=== PATIENT | female | born 1985 | race Caucasian/White ===

== ENCOUNTER 2020-06-05 20:11 | Outpatient (REF) | payer MEDICAID, SELFPAY ==
[2020-06-07 14:02] LABS: COVID-19 RT-PCR UVMMC Result Negative (Negative)
== END 2020-06-05 20:12 | disposition home or self-care (01) ==
LOC: NCHCN 20:11
PROVIDERS: PCP Nurse Practitioner Family; Visit Provider Nurse Practitioner Family
DX: Z20.822 Contact with and (suspected) exposure to COVID-19 (principal)
CPT/HCPCS: U0003

== ENCOUNTER 2020-06-27 09:20 | Outpatient (REF) | payer MEDICAID, SELFPAY ==
[2020-06-27 13:13] LABS: HCT 40.3 % (36.0-46.0); HGB 13.6 g/dL (11.2-15.7); MCH 29.6 pg (27.0-33.0); MCHC 33.7 % (32.0-36.0); MCV 87.8 fL (80-95); MPV 9.7 fL (8.0-11.0); Platelet Count 286 10^3/uL (130-400); RBC 4.59 10^6/uL (3.93-5.22); RDW 12.5 % (11.7-14.6); RDW-SD 40.3 fL; WBC 7.13 10^3/uL (4.4-10.8)
[2020-06-27 14:07] LABS: Anion Gap 7.9 mmol/L (3-11); BUN 10 mg/dL (7-18); CO2 25.1 mmol/L (21.0-32.0); CREATININE 0.6 mg/dL (0.55-1.02); Calcium 8.6 mg/dL (8.5-10.1); Chloride 108 mmol/L (98-107); Glucose 85 mg/dL (74-106); Potassium 4.1 mmol/L (3.5-5.1); Sodium 141 mmol/L (136-145); TSH (W/Ref FT4) 1.97 uIU/mL (0.36-3.74)
[2020-06-28 04:47] LABS: Vitamin D 25 Total 22.8 ng/ml (30-100)
== END 2020-06-27 09:21 | disposition home or self-care (01) ==
LOC: NCHCN 09:20
PROVIDERS: PCP Nurse Practitioner Family; Visit Provider Nurse Practitioner Family
DX: R51.9 Headache, unspecified (principal); E55.9 Vitamin D deficiency, unspecified
CPT/HCPCS: 80048; 82306; 85027; 84443

== ENCOUNTER 2020-08-31 16:53 | Outpatient (REF) | payer MEDICAID, SELFPAY | END 2020-08-31 16:54 | disposition home or self-care (01) | LOC: NCHCN 16:53 | PROVIDERS: PCP Nurse Practitioner Family; Visit Provider Family Medicine | DX: N76.0 Acute vaginitis (principal) | CPT/HCPCS: 87480; 87510; 87660 ==

== ENCOUNTER 2021-01-29 09:34 | Outpatient (REF) | payer MEDICAID, SELFPAY ==
[2021-01-29 15:21] LABS: Bilirubin Negative (Negative); Blood Negative (Negative); Clarity Cloudy (Clear); Glucose Negative (Negative); Ketones Negative (Negative); Leukocyte Esterase Negative (Negative); Nitrite Positive (Negative); Urobilinogen 0.2 EU/dL (Up TO 0.2); pH 8.5 (5-8)
[2021-01-29 15:40] LABS: Bacteria Many HPF (Negative); C & S Indicated? Yes; Casts Negative LPF (Negative); Crystals Moderate Amorphous HPF (Negative); Epithelial Cells Few HPF (Negative); Mucus Negative (Negative); RBC Negative HPF (0-2)
== END 2021-01-29 09:35 | disposition home or self-care (01) ==
LOC: LBN 09:34
PROVIDERS: PCP Nurse Practitioner Family; Visit Provider Nurse Practitioner Family
DX: R35.0 Frequency of micturition (principal); R82.998 Other abnormal findings in urine; R53.83 Other fatigue
CPT/HCPCS: 87077; 81003; 81015; 87086; 87186

== ENCOUNTER 2021-02-18 19:27 | Outpatient (REF) | payer MEDICAID, SELFPAY ==
[2021-02-18 21:54] LABS: Bilirubin Negative (Negative); Blood Negative (Negative); Clarity Clear (Clear); Glucose Negative (Negative); Ketones Negative (Negative); Leukocyte Esterase Negative (Negative); Nitrite Negative (Negative); Specific Gravity 1.015 (1.005-1.025); Urobilinogen 0.2 EU/dL (Up TO 0.2); pH 6.5 (5-8)
[2021-02-20 11:59] LABS: HIV-1/2 Ag & Ab Screen Negative (Negative)
[2021-02-20 14:20] LABS: Syphilis Serology (RPR) Negative (Negative)
[2021-02-20 14:45] LABS: Chlamydia Result Negative (Negative); GC Result Negative (Negative)
== END 2021-02-18 19:28 | disposition home or self-care (01) ==
LOC: LBN 19:27
PROVIDERS: PCP Nurse Practitioner Family; Visit Provider Nurse Practitioner Family
DX: N39.0 Urinary tract infection, site not specified (principal); R30.0 Dysuria; A64 Unspecified sexually transmitted disease; Z11.4 Encounter for screening for human immunodeficiency virus [HIV]; Z11.3 Encounter for screening for infections with a predominantly sexual mode of transmission
CPT/HCPCS: 87389; 87491; 87591; 81003; 86592; 87480; 87510; 87660

== ENCOUNTER 2021-09-06 16:18 | Outpatient (CLI) | payer MEDICAID, SELFPAY ==
[2021-09-06 17:10] LABS: HCG Quant, Pregnancy 648 mIU/mL (1-3)
== END 2021-09-06 16:19 | disposition home or self-care (01) ==
LOC: LBO 16:19
PROVIDERS: PCP Nurse Practitioner Family; Visit Provider Advanced Practice Midwife
DX: O03.9 Complete or unspecified spontaneous abortion without complication (principal)
CPT/HCPCS: 36415; 84702

== ENCOUNTER 2021-09-07 14:26 | Emergency (ER) | payer MEDICAID, SELFPAY ==
[2021-09-07 14:38] VITALS: BP 126/76; PULSE 94; RESP 16; TEMP 37; O2SAT 99
--- NOTE | 2021-09-07 14:45 | DI.US_ITS ---
Exam(s) US PELVIS TRANSVAGINAL EXAM: US PELVIS TRANSVAGINAL CLINICAL HISTORY: , lower cramping pain TECHNIQUE: Ultrasound performed using standard protocol. COMPARISON: US S.T. HEAD/NECK from 01/31/2019 FINDINGS: Pelvic ultrasound was performed transabdominally and transvaginally. Uterus measures 6.2 x 4.7 x 5.9 cm. Endometrial stripe is about 5 millimeters in thickness and appears homogeneous. There is no in trauterine gestation. The ovaries are unremarkable in appearance with right ovary measuring 29 x 16 x 15 millimeters and le ft ovary measured 30 x 15 x 24 millimeters. There is a likely involuting cyst of the left ovary. Th ere is a small quantity of free fluid adjacent to the right ovary. Limited scanning of the kidneys is unremarkable. IMPRESSION: Small to moderate free fluid in the pelvis, nonspecific. No intrauterine gestation identified. No o ther specific findings. DATA REPOSITORY:
--- NOTE | 2021-09-07 14:51 | W.ED.GENAD ---
Discharge Plan Disposition Patient Disposition: HOME Condition: Stable Discharge Details Clinical Impression: Ectopic Primary Care Provider: Myriam Barker ED Provider: Johnson Orozco Home Meds and New Rx's Prescriptions: Continued cyclobenzaprine 10 mg tablet 10 mg PO HS PRN (Reason: muscle spasm) Qty: 10 0RF topiramate [Topamax] 100 mg tablet 100 mg PO QHS Qty: 30 3RF lamotrigine 100 mg tablet 100 mg PO DAILY 0RF acetylcysteine 600 mg capsule See Rx Instructions .ROUTE .COMPLEX 0RF Label Comments: TAKE 2 CAPSULES BY MOUTH IN THE MORNING AND ADDITIONAL 2 CAPSULES IN THE AFTERNOON OR EVENING NEEDED FOR ANXIETY Rx Instructions: TAKE 2 CAPSULES BY MOUTH IN THE MORNING AND ADDITIONAL 2 CAPSULES IN THE AFTERNOON OR EVENING NEEDED FOR ANXIETY Discharge Instructions Instructions: Methotrexate (By injection) Additional Instructions: We have initiated the use of methotrexate today which will be considered day 1. I discussed your case with the history instructor, Dr Garcia, and you will be seen in women's health clinic on Thursday which is day 4. Please call the office at [phone] for an appointment time. A formal referral to women's health was placed on your behalf today. Home to rest. Return to the emergency department for any acute concerns Medical Decision Making 35-year-old female , LMP approx 6 wks ago, [facility] by [facility]. She has had cramping and bleeding for 1 week with a beta-hCG on September 02 of 460, that lara to a beta-hCG of 648 on September 06. She was reported to have no visible intrauterine on ultrasound and therefore referred for question of ectopic . The patient states she has been having intermittent lower abdominal cramping pain and bleeding that at times has required 1-2 pads per hour. She believes she passed some tissue this previous Thursday. The patient arrives to the ER stable and normal and normotensive. Screening labs obtained and patient referred for transvaginal ultrasound. No evidence of intrauterine or tubal . See the formal report. Patient's laboratories noted a white count of 9, hematocrit 40, platelets 306, reassuring chemistries. Beta hCG today is 703. LFTs are unremarkable Case discussed with carbon sequestration plant manager BLUEPRINTING MACHINE OPERATOR, Dr Garcia. She recommends 50 mg per metered squared dose of methotrexate with follow-up in clinic this week on Thursday. Patient consented for use of methotrexate 50 mg per metered squared. The risks and benefits were discussed including adverse reactions such as gastritis and enteritis. The patient is 5 foot 4 inches and weighs 64 kg, approximately 1.6 m?. Patient will follow up in Thursday, day 4 in clinic. She is stable and appropriate for outpatient management. HPI General Mode of arrival: ambulatory. Date/Time Provider Initiated Documentation: 09/07/21 14:44. Limitations to Documentation: no limitations. Information obtained by: patient. History of Present Illness 35 year old F presents to the emergency department with the chief complaint of Crampy lower abdominal pain, positive preg, described as moderate, and is localized to the abdomen. Patient reports no radiation. Patient started experiencing this hour(s) and it has been intermittent. improves with No relieving factors improve symptom(s), No exacerbating factors reported . Patient did receive the following treatments prior to arrival, none Related Data Home Medications Medication Instructions Recorded Confirmed cyclobenzaprine 10 mg tablet 10 mg PO HS PRN #10 tab 11/27/20 09/07/21 topiramate 100 mg tablet (Topamax) 100 mg PO QHS #30 tab 12/18/20 01/29/21 acetylcysteine 600 mg capsule See Rx Instructions .ROUTE .COMPLEX 09/07/21 lamotrigine 100 mg tablet 100 mg PO DAILY 09/07/21 09/07/21 Previous Rx's Medication Instructions Recorded cyclobenzaprine 10 mg tablet 10 mg PO HS PRN #10 tab 11/27/20 topiramate 100 mg tablet (Topamax) 100 mg PO QHS #30 tab 12/18/20 Allergies Allergy/AdvReac Type Severity Reaction Status Date / Time escitalopram [From Lexapro] Allergy Verified 09/07/21 15:42 General Stated Complaint: BLUEPRINTING MACHINE OPERATOR ANGEL: 2 Review of Systems Narrative: Report of elevated hCG, cramping and bleeding for 1 week, otherwise well without acute complaint. 6 systems reviewed and otherwise negative PFSH All Active Problems (Updated 09/07/21 @ 17:01 by Johnson Orozco MD) Ectopic (Acute) Migraine headache without aura (Acute) Intractable migraine with aura without status migrainosus (Acute) Daily headache (Acute) Medical History ADHD Anxiety state Chronic daily headache History of depression Social History Smoking/Tobacco Use Status: Never Smoking risk assessment performed?: Yes Alcohol Intake: current Alcohol Intake frequency: holidays/special occasions only Alcohol type: wine Drug use: Never Substance use type: does not use Household members: children Housing: house Number of Children: 3 Pets and animals: Yes Pets and animals: dog(s) What type of physical activity do you participate in: walking Seatbelt use: always Do you feel safe at home: Yes Do you feel safe in your relationship?: Yes Exam Narrative Exam Narrative: GEN: awake, alert, oriented 3. Pleasant, well groomed, interactive. HEAD: Normocephalic, atraumatic ENT: Mucous membranes moist, oropharynx unremarkable, External ear exam unremarkable EYES: PERRL, EOMI NECK: Full ROM, no BRANDON, no menigismus CHEST/RESP: Nontender, clear to auscultation bilateral, no wheeze/rhonchi/rales CARDIOVASCULAR: RRR, no murmur, rub pedro. 2+ Rad pulse bilateral ABDOMEN: Soft, nontender, no mass. +Bowel sounds EXT: Full ROM, no edema, no rash Neuro: Grossly normal neurologic exam, conversant, interactive. Psych: Speech fluent, thoughts congruent, affect normal Course Vital Signs Vital signs: Vital Signs Temperature 37.0 C 09/07/21 14:38 Pulse 94 H 09/07/21 14:38 Respiratory Rate 16 09/07/21 14:38 Blood Pressure 126/76 09/07/21 14:38 Pulse Oximetry 99 09/07/21 14:38 Temperature 37.0 C 09/07/21 14:38 Temperature Source Temporal Artery Scan 09/07/21 14:38 Pulse 94 H 09/07/21 14:38 Respiratory Rate 16 09/07/21 14:38 Blood Pressure 126/76 09/07/21 14:38 Blood Pressure Position Sitting 09/07/21 14:38 Pulse Oximetry 99 09/07/21 14:38 Oxygen Delivery Method Room Air 09/07/21 14:38 Oxygen Flow Rate 0 09/07/21 14:38 Pain Level 5 09/07/21 14:38 Comment 09/07/21 14:38 Lab/Test Results Lab/Test Results: POC- Test(urine) Positive
[2021-09-07 15:26] LABS: Abs Immature Grans 0.03 10^3/uL (0.0-0.06); Absolute Basophil Count 0.04 10^3/uL (0.0-0.2); Absolute Eosinophil Count 0.08 10^3/uL (0.0-0.7); Absolute Lymphocyte Count 2.67 10^3/uL (1.2-3.4); Absolute Monocyte Count 0.56 10^3/uL (0.1-0.8); Absolute Neutrophil Count 5.74 10^3/uL (1.2-6.7); Basophils % 0.4; Eosinophils % 0.9; HCT 40.3 % (36.0-46.0); HGB 13.6 g/dL (11.2-15.7); Immature Grans % 0.3; Lymphocytes % 29.3; MCH 29.5 pg (27.0-33.0); MCHC 33.7 % (32.0-36.0); MCV 87 fL (80-95); MPV 9.3 fL (8.0-11.0); Monocytes % 6.1; Platelet Count 306 10^3/uL (130-400); RBC 4.61 10^6/uL (3.93-5.22); RDW 12.9 % (11.7-14.6); WBC 9.12 10^3/uL (4.4-10.8)
[2021-09-07 15:34] LABS: Anion Gap 9.8 mmol/L (3-11); BUN 11 mg/dL (7-18); CO2 24.2 mmol/L (21.0-32.0); CREATININE 0.6 mg/dL (0.55-1.02); Calcium 8.7 mg/dL (8.5-10.1); Chloride 108 mmol/L (98-107); Glucose 93 mg/dL (74-106); Potassium 3.7 mmol/L (3.5-5.1); Sodium 142 mmol/L (136-145)
[2021-09-07 15:55] LABS: HCG Quant, Pregnancy 703 mIU/mL (1-3)
--- NOTE | 2021-09-07 16:14 | DI.VRAD_ITS ---
PROCEDURE INFORMATION: Preliminary report Exam: US Pelvis Complete, Transabdominal and US Pelvis, Transvaginal Exam date and time: 09/07/2021 3:01 PM Age: 35 years old Clinical indication: Pelvic pain; Patient HX: Rising hcg levels. Patient has been having intermittent severe cramping and bleeding for the past couple of weeks. [facility] no sonographic evidence of an iup. Pt's hcg level on 09/02 = 460, hcg level on 09/07 = 648. Concern for ectopic TECHNIQUE: Imaging protocol: Real-time transabdominal and transvaginal pelvic ultrasound (complete) with image documentation. Transvaginal imaging was used for better evaluation of the endometrium, adnexa, and/or cervix. COMPARISON: No relevant prior studies available. FINDINGS: Uterus: Uterus measures 6.2 x 4.7 x 5.9 cm. Endometrium measures 5 mm in diameter. No intrauterine . Cervix: Subcentimeter nabothian cyst. Right ovary/adnexa: Right ovary measures 2.9 x 1.6 by 1.4 cm. Subcentimeter follicles. Right ovarian blood flow demonstrated. Left ovary/adnexa: Left ovary measures 3.0 x 1.5 by 2.4 cm. Left ovarian blood flow demonstrated. Poorly defined 1.4 cm complex cystic structure in the left ovary. Intraperitoneal space: Moderate quantity of complex free fluid . Urinary bladder: Nondistended bladder. Other findings: Normal bilateral renal morphology. No hydronephrosis. IMPRESSION: 1. Moderate quantity of complex free fluid . 2. Poorly defined 1.4 cm complex cystic structure in the left ovary. 3. No intrauterine . Dictated and Authenticated by: Zion Agrawal MD. Ordering:MICHAEL Ornelas MD
[2021-09-07 16:29] LABS: ALT 16 U/L (14-59); AST 10 U/L (15-37); Albumin 3.9 g/dL (3.4-5.0); Alkaline Phosphatase 59 U/L (46-116); Bilirubin, Direct 0.1 mg/dL (0.0-0.2); Bilirubin, Total 0.2 mg/dL (0.2-1.0); Total Protein 7.3 g/dL (6.4-8.2)
--- NOTE | 2021-09-07 17:47 | NUR.NOTE ---
Dr. Orozco has requested a consultation with OB MD re: Tubal , Methotrexate tx Request has been faxed. [facility]
[2021-09-07 18:57] VITALS: BP 124/70; PULSE 86; RESP 16; TEMP 36.9; O2SAT 98
== END 2021-09-07 18:56 | disposition home or self-care (01) ==
PROVIDERS: Emergency Provider Emergency Medicine; PCP Nurse Practitioner Family
DX: O00.80 Other ectopic pregnancy without intrauterine pregnancy (principal)
CPT/HCPCS: 80048; 80076; 86900; 86901; 76830; 76856; 84702; 85025; J9250

== ENCOUNTER 2021-09-10 02:02 | Outpatient (CLI) | payer MEDICAID, SELFPAY ==
[2021-09-10 17:19] LABS: HCG Quant, Pregnancy 707 mIU/mL (1-3)
== END 2021-09-10 02:03 | disposition home or self-care (01) ==
LOC: LBO 02:03
PROVIDERS: PCP Nurse Practitioner Family; Visit Provider Obstetrics & Gynecology
DX: O26.851 Spotting complicating pregnancy, first trimester (principal); Z3A.01 Less than 8 weeks gestation of pregnancy
CPT/HCPCS: 84702

== ENCOUNTER 2021-09-12 14:35 | Emergency (ER) | payer MEDICAID, SELFPAY ==
--- NOTE | 2021-09-12 14:36 | W.ED.GENAD ---
Discharge Plan Disposition Patient Disposition: HOME Condition: Improving Discharge Details Clinical Impression: Incomplete miscarriage Primary Care Provider: Myriam Barker ED Provider: Noemi Martinez Home Meds and New Rx's Prescriptions: Continued topiramate [Topamax] 100 mg tablet 100 mg PO QHS Qty: 30 3RF oxycodone-acetaminophen [Endocet] 5-325 mg tablet 1 tab PO Q6H MDD 4 PRN (Reason: pain) Qty: 10 0RF lamotrigine 100 mg tablet 100 mg PO DAILY No Action methotrexate sodium 25 mg/mL solution See Rx Instructions IM ONCE Qty: 3.36 0RF Rx Instructions: 50 mg per metered square = 84mg intramuscularly once; Discharge Instructions Instructions: Miscarriage (ED) Additional Instructions: Drink plenty of fluids and get plenty of rest. Alternate tylenol and motrin as needed and directed for pain. Take the oxycodone for pain not relieved with Tylenol or Motrin. [facility]-up with [facility] tomorrow for ultrasound and further evaluation. Return immediately to the emergency department if you develop any worsening or new concerning symptoms. [place] [facility] [place] Cathleen Guthrie MD [ [facility] STAFF PHYSICIAN] - Discharge Data Discharge Date/Time-TO BE ENTERED AT DEPARTURE: 09/12/21 18:41 Discharge Physician: Noemi Martinez Medical Decision Making [id number] -- 35-year-old female seen in the ED on 09/07 and diagnosed with possible ectopic with no IUP identified on ultrasound with initiated methotrexate treatment on 09/07 with follow-up with [facility] on 09/09 with plan to continue to monitor hCGs presents for abdominal pain and vaginal bleeding presents today with persistent abdominal pain and episode of dizziness followed by bilateral hand paresthesias. Vitals within normal limits. Patient appears uncomfortable but not. Her abdomen is soft but diffusely tender. Case discussed with Dr. Guthrie who will evaluate patient in the emergency department. Dr. Guthrie evaluated patient at bedside. Agrees with plan for CBC, hCG and pain control. We will place an IV, bolus IV fluids and give IV Tylenol. Plan will be for repeat ultrasound and follow-up with [facility] tomorrow. Unable to obtain IV and patient refusing any further attempts. We will give oral fluids and oral Tylenol. Dr. Guthrie is agreeable with oral oxycodone. 1814 --labs reviewed. Normal white blood cell count. Normal hemoglobin. Normal electrolytes. Beta quant slightly downtrending from 707 on 09/10 to 703 pn 09/12. Patient reassessed and she feels much better and feels good to go home. She was given oxycodone to go. She will follow-up with [facility] tomorrow for ultrasound and further evaluation. Usual and customary return precautions given prior to discharge. Medical Records Medical records reviewed: Yes I reviewed the patient's medical records. Medical records narrative: US PELVIS ? TRANSVAGINAL CLINICAL HISTORY:? , lower cramping pain TECHNIQUE:? Ultrasound? performed using standard protocol. COMPARISON:? US S.T. HEAD/NECK from 01/31/2019 FINDINGS: Pelvic ultrasound was performed transabdominally and transvaginally.? Uterus measures 6.2 x 4.7 x 5.9 cm.? Endometrial stripe is about 5 millimeters in thickness and appears homogeneous.? There is no intrauterine gestation. The ovaries are unremarkable in appearance with right ovary measuring 29 x 16 x 15 millimeters and left ovary measured 30 x 15 x 24 millimeters.? There is a likely involuting cyst of the left ovary.? There is a small quantity of free fluid adjacent to the right ovary. Limited scanning of the kidneys is unremarkable. IMPRESSION: Small to moderate free fluid in the pelvis, nonspecific.? No intrauterine gestation identified.? No other specific findings. Lab Data Lab results reviewed: Yes I reviewed the patient's lab results. Labs: Laboratory Tests Range/Units 09/12/21 09/12/21 09/12/21 16:38 16:38 17:20 WBC Cancelled RBC Cancelled Hgb Cancelled Hct Cancelled MCV Cancelled MCH Cancelled MCHC Cancelled RDW Cancelled Plt Count Cancelled MPV Cancelled Immature Gran % Cancelled Neutrophils % Cancelled Band Neutrophils % Cancelled Lymphocytes % Cancelled Atypical Lymphs % Cancelled Monocytes % Cancelled Eosinophils % Cancelled Basophils % Cancelled Metamyelocytes % Cancelled Myelocytes % Cancelled Promyelocytes % Cancelled Other Cells % Cancelled Nucleated RBC % Cancelled Absolute Neutrophils Cancelled Absolute Lymphocytes Cancelled Absolute Monocytes Cancelled Absolute Eosinophils Cancelled Absolute Basophils Cancelled RBC Morphology Cancelled Polychromasia Cancelled Hypochromasia Cancelled Poikilocytosis Cancelled Basophilic Stippling Cancelled Anisocytosis Cancelled Microcytosis Cancelled Macrocytosis Cancelled Spherocytes Cancelled Tear Drop Cells Cancelled Ovalocytes Cancelled Stomatocytes Cancelled [place] Bodies Cancelled [place] Cells/Echinocytes Cancelled Acanthocytes (Spur) Cancelled Schistocytes Cancelled Sodium Cancelled 141 Potassium Cancelled 3.7 Chloride Cancelled 107 Carbon Dioxide Cancelled 22.1 Anion Gap Cancelled 11.9 H BUN Cancelled 12 Creatinine Cancelled 0.6 Estimated GFR/1.73 m2 Cancelled >= 60.00 Glucose Cancelled 89 Calcium Cancelled 8.4 L Total Bilirubin Cancelled 0.3 AST Cancelled 9 L ALT Cancelled 15 Alkaline Phosphatase Cancelled 52 Total Protein Cancelled 6.7 Albumin Cancelled 3.9 Beta HCG, Quant Cancelled 703 H Range/Units 09/12/21 17:20 WBC 9.40 RBC 4.16 Hgb 12.5 Hct 36.7 MCV 88 MCH 30.0 MCHC 34.1 RDW 12.3 Plt Count 270 MPV 8.9 Immature Gran % 0.3 Neutrophils % 58.4 Band Neutrophils % Lymphocytes % 34.8 Atypical Lymphs % Monocytes % 5.3 Eosinophils % 0.7 Basophils % 0.5 Metamyelocytes % Myelocytes % Promyelocytes % Other Cells % Nucleated RBC % 0.0 Absolute Neutrophils 5.48 Absolute Lymphocytes 3.27 Absolute Monocytes 0.50 Absolute Eosinophils 0.07 Absolute Basophils 0.05 RBC Morphology Polychromasia Hypochromasia Poikilocytosis Basophilic Stippling Anisocytosis Microcytosis Macrocytosis Spherocytes Tear Drop Cells Ovalocytes Stomatocytes [place] Bodies [place] Cells/Echinocytes Acanthocytes (Spur) Schistocytes Sodium Potassium Chloride Carbon Dioxide Anion Gap BUN Creatinine Estimated GFR/1.73 m2 Glucose Calcium Total Bilirubin AST ALT Alkaline Phosphatase Total Protein Albumin Beta HCG, Quant HPI General Mode of arrival: ambulatory. Date/Time Provider Initiated Documentation: 09/12/21 14:36. Limitations to Documentation: no limitations. Information obtained by: patient. HPI Narrative: Patient is a 34-year-old female with a history of G4, P3 with a history of endometriosis, laparoscopy and presents for persistent abdominal pain after taking methotrexate on Thursday for a recent . Patient was seen here 5 days ago for abdominal pain and vaginal bleeding and found to have no IUP on ultrasound and was given methotrexate for concern for ectopic as she had rising hCG and was advised to follow-up with [facility] for repeat hCG. She presents for worsening pain over the past few days. She states that she has been on oral contraceptive and took a morning-after pill 6 weeks ago. She had heavy vaginal bleeding up until a few days ago and has had some spotting today. She states her abdominal pain is constant and diffuse. She admits to nausea today and an episode of dizziness with tingling in her hands. Related Data Home Medications Medication Instructions Recorded Confirmed topiramate 100 mg tablet (Topamax) 100 mg PO QHS #30 tabs 12/18/20 09/12/21 lamotrigine 100 mg tablet 100 mg PO DAILY 09/07/21 09/12/21 oxycodone-acetaminophen 5 mg-325 1 tab PO Q6H PRN pain #10 tabs 09/12/21 mg tablet (Endocet) methotrexate sodium 25 mg/mL See Rx Instructions IM ONCE #3.36 09/13/21 09/13/21 injection solution mL Previous Rx's Medication Instructions Recorded topiramate 100 mg tablet (Topamax) 100 mg PO QHS #30 tabs 12/18/20 oxycodone-acetaminophen 5 mg-325 1 tab PO Q6H PRN pain #10 tabs 09/12/21 mg tablet (Endocet) methotrexate sodium 25 mg/mL See Rx Instructions IM ONCE #3.36 09/13/21 injection solution mL Allergies Allergy/AdvReac Type Severity Reaction Status Date / Time escitalopram [From Lexapro] Allergy Verified 09/13/21 11:44 General Stated Complaint: Abd Prob ANGEL: 2 Review of Systems All systems reviewed & are unremarkable except as noted in HPI and below Constitutional Constitutional: Denies chills, Denies excessive sweating, Denies fatigue, Denies fever(s), Denies weakness and Denies weight loss Eyes Eyes: Reports system reviewed and no additional complaints, except as documented and Denies blurry vision ENT Ears, Nose, Mouth, and Throat: Denies vertigo, Denies dizziness, Denies otalgia, Denies nasal congestion, Denies sore throat and Denies throat swelling Cardiovascular Cardiovascular: Denies chest pain, Denies syncope, Denies rapid heart rate and Denies dyspnea Respiratory Respiratory: Denies chest congestion, Denies cough, Denies pain on inspiration and Denies dyspnea Gastrointestinal Gastrointestinal: Reports abdominal pain, Denies diarrhea, Reports nausea and Denies vomiting Genitourinary Genitourinary: Denies hematuria, Denies dysuria and Denies flank pain Musculoskeletal Musculoskeletal: Denies back pain and Denies joint swelling Integumentary/Breasts Skin/Breast: Denies lesions and Denies rash Neurologic Neurologic: Denies behavioral changes, Denies confusion, Denies vertigo, Denies dizziness, Denies syncope, Denies localized weakness and Denies weakness Psychiatric Psychiatric: Denies behavioral changes, Denies confusion and Denies depression Endocrine Endocrine: Denies excessive sweating and Denies fatigue Hematologic/Lymphatic Hematologic/Lymphatic: Denies easy bruising and Denies lymphadenopathy Allergic/Immunologic Allergic/Immunologic: Denies throat swelling PFSH All Active Problems (Updated 09/12/21 @ 18:25 by Noemi Martinez DO) Incomplete miscarriage (Acute) Pelvic pain (Acute) Inevitable (Acute) Ectopic (Acute) Suspected: Tx'd with MTX 09/06/21. F/u hcg levels 09/09 and 09/12. Migraine headache without aura (Acute) Medical History (Updated 09/12/21 @ 18:25 by Noemi Martinez DO) ADHD Anxiety state Endometriosis History of depression Surgical History (Updated 09/09/21 @ 12:52 by Lorelei Garcia MD) History of appendectomy History of laparoscopy 2012. For endometriosis. 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 [employer] Pets and animals: Yes Pets and animals: dog(s) What type of physical activity do you participate in: walking Seatbelt use: always Do you feel safe at home: Yes Do you feel safe in your relationship?: Yes Female Reproductive History Menstrual control method: pills History History 5 Para 3 Hx # Term Pregnancies 3 Multiple births Hx # Pregnancies Ectopic pregnancies AB induced 1 Hx Number of Living Children 3 AB spontaneous Exam Const General: cooperative and uncomfortable Orientation: alert, awake and oriented x3 HENMT Head: normal to inspection Ears: hearing grossly normal bilaterally, external ears normal and TM's normal bilaterally General nose exam: external nose normal Face and sinus: normal facial exam Mouth: oral mucosae normal Teeth and gingiva: dentition normal Throat: posterior oropharynx normal Eyes General: appearance normal, both eyes and all related structures Eyelids: eyelids normal Pupils: PERRL EOM: EOM intact bilaterally Neck Neck: normal visual inspection Lymphatic: no lymphadenopathy noted Chest Chest: normal inspection of the chest Resp Effort & Inspection: normal respiratory effort and able to speak in complete sentences Auscultation: clear to auscultation bilaterally Cardio Rate: regular rate Rhythm: regular rhythm GI Inspection: normal to inspection Palpation: soft, not firm, no guarding, no hepatosplenomegaly, no masses and tender (diffuse) Auscultation: normal bowel sounds Back/Spine/Pelvis Back: no CVA tenderness Skin General skin exam: no rashes or lesions noted Neuro General: patient alert and patient awake Cognition: normal cognition Speech: speech normal Gait: normal gait Motor: muscle tone normal throughout Sensory Exam: no sensory deficits noted Extrem General: normal to inspection, full ROM and capillary refill normal Psych Appearance: grossly normal Mental Status: mental status grossly normal Speech and Movement: speech and movement normal Affect: normal affect Thought Process: normal
[2021-09-12 14:37] VITALS: BP 141/93; PULSE 72; RESP 16; TEMP 36.5; O2SAT 100
[2021-09-12] MEDS: oxyCODONE 5 MG TAB PO (17:12)
[2021-09-12 17:22] LABS: Abs Immature Grans 0.03 10^3/uL (0.0-0.06); Absolute Basophil Count 0.05 10^3/uL (0.0-0.2); Absolute Eosinophil Count 0.07 10^3/uL (0.0-0.7); Absolute Lymphocyte Count 3.27 10^3/uL (1.2-3.4); Absolute Neutrophil Count 5.48 10^3/uL (1.2-6.7); Basophils % 0.5; Eosinophils % 0.7; HCT 36.7 % (36.0-46.0); HGB 12.5 g/dL (11.2-15.7); Immature Grans % 0.3; Lymphocytes % 34.8; MCHC 34.1 % (32.0-36.0); MCV 88 fL (80-95); MPV 8.9 fL (8.0-11.0); Monocytes % 5.3; Neutrophils % 58.4; Platelet Count 270 10^3/uL (130-400); RBC 4.16 10^6/uL (3.93-5.22); RDW 12.3 % (11.7-14.6); RDW-SD 39.8 fL
[2021-09-12 17:42] LABS: ALT 15 U/L (14-59); AST 9 U/L (15-37); Albumin 3.9 g/dL (3.4-5.0); Alkaline Phosphatase 52 U/L (46-116); Anion Gap 11.9 mmol/L (3-11); BUN 12 mg/dL (7-18); Bilirubin, Total 0.3 mg/dL (0.2-1.0); CO2 22.1 mmol/L (21.0-32.0); CREATININE 0.6 mg/dL (0.55-1.02); Calcium 8.4 mg/dL (8.5-10.1); Chloride 107 mmol/L (98-107); Glucose 89 mg/dL (74-106); HCG Quant, Pregnancy 703 mIU/mL (1-3); Potassium 3.7 mmol/L (3.5-5.1); Sodium 141 mmol/L (136-145); Total Protein 6.7 g/dL (6.4-8.2)
[2021-09-12 18:00] VITALS: BP 114/65; PULSE 79; RESP 16; TEMP 37.1; O2SAT 98
[2021-09-12] MEDS: Lidocaine 1% Multi-Dose 50 ML VIAL (18:35)
[2021-09-12] MEDS: Acetaminophen 500 MG TAB (18:36)
== END 2021-09-12 18:41 | disposition home or self-care (01) ==
PROVIDERS: Emergency Provider Physician Assistant; PCP Nurse Practitioner Family
DX: O03.4 Incomplete spontaneous abortion without complication (principal)
CPT/HCPCS: 36415; 80053; 99283; 84702; 85025

== ENCOUNTER 2021-09-13 03:33 | Outpatient (CLI) | payer MEDICAID, SELFPAY ==
[2021-09-13 09:27] LABS: HCG Quant, Pregnancy 622 mIU/mL (1-3)
== END 2021-09-13 03:34 | disposition home or self-care (01) ==
LOC: LBO 03:33
PROVIDERS: PCP Nurse Practitioner Family; Visit Provider Obstetrics & Gynecology
DX: O03.4 Incomplete spontaneous abortion without complication (principal)
CPT/HCPCS: 36415; 84702

== ENCOUNTER → 2021-09-13 09:23 | Outpatient (CLI) | payer MEDICAID, SELFPAY ==
--- NOTE | 2021-09-13 08:00 | DI.US_ITS ---
Exam(s) US PELVIS TRANSVAGINAL EXAM: US PELVIS TRANSVAGINAL CLINICAL HISTORY: inevitable . unclear if ectopic, methotrexate for ectopic TECHNIQUE: Ultrasound of the pelvis was performed both transabdominal and transvaginal. COMPARISON: US US PELVIS TRANSVAGINAL from 09/07/2021 FINDINGS: UTERUS: Measures 9.2 cm length x 4.2 cm AP x 5.7 cm wide. There are no uterine fibroids. Endometrial thickness measures 3.3 mm. (Transvaginal measurement). No evidence of intrauterine gest ation. There is no fluid in the endometrial canal. CERVIX: There are no obvious nabothian cysts. RIGHT OVARY: Measures 2.6 x 1.4 x 1.2 cm No significant cysts nor masses evident in the right ovary. LEFT OVARY: Measures 2.9 x 1.3 x 2.6 cm On transvaginal study there is a 1.8 x 1.3 x 1.9 cm small complex cystic structure in the left ovary. There is a small amount of fluid in the left adnexa. There are no obvious extraovarian adnexal masses. CUL-DE-SAC: No prominent fluid IMPRESSION: 1. Unremarkable appearing uterus. 2. 18 x 13 x 19 millimeter finding in the left ovary which is probably hemorrhagic cyst. Small amoun t of free fluid noted the left adnexa 3. There are no obvious extraovarian adnexal masses. DATA REPOSITORY:
== END ==
PROVIDERS: PCP Nurse Practitioner Family; Visit Provider Obstetrics & Gynecology Gynecology
DX: O03.4 Incomplete spontaneous abortion without complication (principal); N83.292 Other ovarian cyst, left side
CPT/HCPCS: 76830; 76856

== ENCOUNTER 2021-09-17 02:18 | Outpatient (CLI) | payer MEDICAID, SELFPAY ==
[2021-09-17 16:09] LABS: HCG Quant, Pregnancy 300 mIU/mL (1-3)
== END 2021-09-17 02:19 | disposition home or self-care (01) ==
LOC: LBO 02:18
PROVIDERS: PCP Nurse Practitioner Family; Visit Provider Obstetrics & Gynecology Gynecology
DX: O00.90 Unspecified ectopic pregnancy without intrauterine pregnancy (principal)
CPT/HCPCS: 36415; 84702

== ENCOUNTER 2021-09-19 03:44 | Outpatient (CLI) | payer MEDICAID, SELFPAY | END 2021-09-19 03:45 | disposition home or self-care (01) | LOC: LBO 03:44 | PROVIDERS: PCP Nurse Practitioner Family; Visit Provider Obstetrics & Gynecology Gynecology ==

== ENCOUNTER 2021-10-01 02:53 | Outpatient (CLI) | payer MEDICAID, SELFPAY ==
[2021-10-01 16:52] LABS: HCG Quant, Pregnancy 21 mIU/mL (1-3)
== END 2021-10-01 02:54 | disposition home or self-care (01) ==
LOC: LBO 02:53
PROVIDERS: PCP Nurse Practitioner Family; Visit Provider Obstetrics & Gynecology Gynecology
DX: O00.80 Other ectopic pregnancy without intrauterine pregnancy (principal)
CPT/HCPCS: 36415; 84702

== ENCOUNTER 2021-10-09 12:05 | Outpatient (CLI) | payer MEDICAID, SELFPAY ==
[2021-10-09 11:50] LABS: HCG Quant, Pregnancy 10 mIU/mL (1-3)
== END 2021-10-09 12:06 | disposition home or self-care (01) ==
LOC: LBO 12:06
PROVIDERS: PCP Nurse Practitioner Family; Visit Provider Obstetrics & Gynecology Gynecology
DX: O00.90 Unspecified ectopic pregnancy without intrauterine pregnancy (principal); R10.32 Left lower quadrant pain; M54.59 Other low back pain
CPT/HCPCS: 84702

== ENCOUNTER 2021-11-18 01:54 | Outpatient (CLI) | payer MEDICAID, SELFPAY ==
[2021-11-18 09:58] LABS: Source Nasal/Nares
[2021-11-18 17:16] LABS: COVID-19 PCR Negative (Negative)
== END 2021-11-18 01:55 | disposition home or self-care (01) ==
LOC: LBO 01:54
PROVIDERS: PCP Nurse Practitioner Family; Visit Provider Obstetrics & Gynecology Gynecology
DX: Z20.822 Contact with and (suspected) exposure to COVID-19 (principal); Z01.818 Encounter for other preprocedural examination
CPT/HCPCS: 87635

== ENCOUNTER 2021-11-18 02:23 | Outpatient (CLI) | payer MEDICAID, SELFPAY | END 2021-11-18 02:24 | disposition home or self-care (01) | LOC: LBO 02:23 | PROVIDERS: PCP Nurse Practitioner Family; Visit Provider Obstetrics & Gynecology Gynecology ==

== ENCOUNTER 2021-11-19 10:01 | Outpatient (CLI) | payer MEDICAID, SELFPAY ==
[2021-11-19 11:06] LABS: HGB 13.1 g/dL (11.2-15.7); MCH 29.8 pg (27.0-33.0); MCHC 33.6 % (32.0-36.0); MCV 89 fL (80-95); MPV 8.9 fL (8.0-11.0); Platelet Count 300 10^3/uL (130-400); RBC 4.39 10^6/uL (3.93-5.22); RDW 12.2 % (11.7-14.6); RDW-SD 39.8 fL; WBC 6.96 10^3/uL (4.4-10.8)
[2021-11-19 11:29] LABS: Anion Gap 8.9 mmol/L (3-11); BUN 15 mg/dL (7-18); CO2 26.1 mmol/L (21.0-32.0); CREATININE 0.7 mg/dL (0.55-1.02); Calcium 8.9 mg/dL (8.5-10.1); Chloride 104 mmol/L (98-107); Glucose 94 mg/dL (74-106); Potassium 4.1 mmol/L (3.5-5.1); Sodium 139 mmol/L (136-145)
[2021-11-19 12:23] LABS: HCG Qual (Serum) Negative
== END 2021-11-19 10:02 | disposition home or self-care (01) ==
PROVIDERS: PCP Nurse Practitioner Family; Visit Provider Obstetrics & Gynecology Gynecology
DX: Z01.818 Encounter for other preprocedural examination (principal)
CPT/HCPCS: 80048; 85027; 86850; 86900; 86901; 84703

== ENCOUNTER 2021-11-20 07:22 | Day surgery (SDC) | payer MEDICAID, SELFPAY ==
[2021-11-20] VITALS (13 sets, daily range): BP systolic 93–149; BP diastolic 40–76; PULSE 56–78; RESP 12–22; TEMP 36.3–37.1; O2SAT 95–100; BMI 28.5
[2021-11-20] MEDS: Lactated Ringers 1,000 ML 125 ML IV (08:41)
--- NOTE | 2021-11-20 08:43 | ANES.PREOP_ITS ---
General Info Date of Service Date Performed: 11/20/21 Height: 5 ft 4 in Weight: 75.4 kg Body Mass Index (BMI): 28.5 Surgical Procedure: Operation Date: 11/20/21 09:10 Proposed Procedure Side Surgeon p Salpingectomy Laparoscopic Bilateral Cathleen Guthrie MD Meds Allergies and Home Medications Allergies Allergy/AdvReac Type Severity Reaction Status Date / Time escitalopram [From Lexapro] Allergy Verified 11/20/21 08:04 Home Medication Medication Instructions Recorded acetylcysteine 600 mg tablet (NAC) 600 mg PO DAILY 10/09/21 buspirone 5 mg tablet 5 mg PO DAILY 10/09/21 lamotrigine 100 mg tablet 150 mg PO DAILY 11/18/21 oxycodone-acetaminophen 5 mg-325 1 tab PO Q6H PRN pain #30 tabs 11/18/21 mg tablet (Endocet) blue-green algae (bulk) (Spirulina 1 pwd miscellaneous DAILY 11/20/21 powder) Current Visit Medications: Current Medications Generic Name Dose Route Start Last Admin Trade Name Freq PRN Reason Stop Dose Admin Ringer's Solution 1,000 mls @ 125 mls/hr 11/20/21 06:00 11/20/21 08:41 IV 12/19/21 23:59 125 mls/hr INFUSION MARIA ELENA Administration IV Miscellaneous Supplies 1 each 11/20/21 06:00 Iv Access IV 12/19/21 23:59 DIRECTED MARIA ELENA Sodium Chloride 0 ml 11/20/21 06:00 Normal Saline Flush 10 Ml Syr IV 12/19/21 23:59 PRN PRN Sodium Chloride 0 ml 11/20/21 06:00 Normal Saline 10 Ml Vial IJ 12/19/21 23:59 DIRECTED PRN Sterile Water 0 ml 11/20/21 06:00 Water,Injection,Sterile 10 Ml Vial IJ 12/19/21 23:59 DIRECTED PRN PFSH Active Problems Active Problems: Problem Status Onset Code History of dysmenorrhea Z87.42 Sterilization consult Z30.09 Left-sided back pain M54.9 Ectopic O00.90 Pelvic pain R10.2 Inevitable O03.4 Migraine headache without aura G43.009 Medical History Medical History (Updated 11/19/21 @ 11:28 by Cathleen Guthrie MD) ADHD Anxiety state Endometriosis History of depression Medical History Comments:: Pt reports tics. Pt reports involuntary muscle spasms in face and hands. this is triggered by anxiety Surgical History Surgical History History of appendectomy History of laparoscopy 2012. For endometriosis. History of tonsillectomy Hx of section 2019, Arrest disorder [place], [place] Tobacco Smoking/Tobacco Use Status: Never Alcohol Alcohol Intake: current Alcohol intake frequency: holidays/special occasions only Alcohol type: wine Substance Use Substance use: Never Substance use type: does not use Prental History History 5 Para 3 Hx # Term Pregnancies 3 Multiple births Hx # Pregnancies Ectopic pregnancies AB induced 1 Hx Number of Living Children 3 AB spontaneous Vital Signs and Lab Results Vital Signs Most Recent Vital Signs in EMR: Most Recent Vital Signs Temp Pulse Resp BP Pulse Ox 37.1 C 78 18 123/76 98 11/20/21 07:51 11/20/21 07:51 11/20/21 07:51 11/20/21 07:51 11/20/21 07:51 Lab Results Blood Type / Crossmatch: Patient ABO/Rh A Positive 11/19/21 Antibody Screen NEGATIVE 11/19/21 Complete Blood Count: White Blood Count 6.96 10^3/uL (4.4-10.8) 11/19/21 11:00 Red Blood Count 4.39 10^6/uL (3.93-5.22) 11/19/21 11:00 Hemoglobin 13.1 g/dL (11.2-15.7) 11/19/21 11:00 Hematocrit 39.0 % (36.0-46.0) 11/19/21 11:00 Platelet Count 300 10^3/uL (130-400) 11/19/21 11:00 Complete Metabolic Panel: Sodium Level 139 mmol/L (136-145) 11/19/21 11:00 Potassium Level 4.1 mmol/L (3.5-5.1) 11/19/21 11:00 Chloride Level 104 mmol/L (98-107) 11/19/21 11:00 Carbon Dioxide Level 26.1 mmol/L (21.0-32.0) 11/19/21 11:00 Blood Urea Nitrogen 15 mg/dL (7-18) 11/19/21 11:00 Creatinine 0.7 mg/dL (0.55-1.02) 11/19/21 11:00 Estimated GFR/1.73 m2 >= 60.00 (mL/min/1.73m2) 11/19/21 11:00 Calcium Level 8.9 mg/dL (8.5-10.1) 11/19/21 11:00 Glucose Level 94 mg/dL (74-106) 11/19/21 11:00 Liver Function Panel: No Data to Display Coagulation Panel: No Data to Display Cardiac Panel: No Data to Display Arterial Blood Gas: No Data to Display Venous Blood Gas: No Data to Display Pancreas Panel: No Data to Display Thyroid Panel: No Data to Display Infectious Disease: Coronavirus (COVID-19)(PCR) Negative (Negative) 11/18/21 09:50 Coronavirus 2019 Source Nasal/Nares 11/18/21 09:50 Blood Cultures: No Data to Display Toxicology Panel: No Data to Display Panel: Serum HCG, Qualitative Negative 11/19/21 11:00 Anesthesia Assessment and Plan Anesthesia History Personal History: No History of Anesthesia Complications Family History: No Family History of Anesthesia Complications Exercise Tolerance Exercise Tolerance: Metabolic Equivalents>4 Pertinent Negatives Pertinent Negatives: No Symptoms of GERD, No Major Cardiovascular Symptoms or Complaints, No Major Pulmonary Symptoms or Complaints and No History of CVA/TIA Cardiac & Pulmonary Exam Cardiac Exam: Normal S1/S2 Heart Sounds Pulmonary Exam: Clear Bilateral Breath Sounds Implantable Cardiac Device Does patient have a Pacemaker or an ICD?: No Airway Exam Known Difficult Airway: No Mallampati Class: 2 Mouth Opening: Normal (> 3cm) Thyromental Distance: Greater than 3 cm Neck Range of Motion: Full ROM Neck Circumference: Normal Teeth Condition: Normal Dentition ASA Classification ASA Score: ASA 1 Emergency Case?: No NPO Status NPO Status: NPO Clears >2 hours, Solids >8 hours Status Status: Negative HCG Anesthesia Plan Resuscitation Status: Full Code Anesthesia Technique: General Anesthesia Airway Planned: Endotracheal Tube Monitors Used: Standard Monitors
[2021-11-20] MEDS: Bupivacaine 0.25% Pres-Free 30 ML VIAL (09:41)
--- NOTE | 2021-11-20 09:56 | FALL_PTH ---
PATIENT: Taniya Moncada LOC: [facility] U#:[id number] AGE/SX: 36/F ROOM: RE11/20/[address]: Cathleen Guthrie : 1985 BED: DIS: 11/20/2021 SPEC #: [id number] RECD: 11/20/21 13:00 STATUS: KAYLIN ALY #: [id number] CASSIUS: 11/20/21 09:[address]: Cathleen Guthrie DEPT: Surgical Specimen RECD BY: Celsa Card ENTERED: 11/20/21 13:01 SP TYPE: Fall OTHR DR: Edi Izaguirre Tissues: 1 - FALLOPIAN TUBE (STERILIZATION) 2 - FALLOPIAN TUBE (STERILIZATION) Procedures: GROSS AND MICRO LEVEL 2 Comments: [id number]
--- NOTE | 2021-11-20 10:22 | W.PM.OP ---
Date of service: 11/20/21 Time of Service: 10:27 Operative Note Operative Note DATE OF PROCEDURE: 11/20/21 PRE-OP DIAGNOSIS: History of left ectopic , left pelvic pain, desires permanent sterilization, dysmenorrhea PROCEDURE: Laparoscopic bilateral salpingectomy and Kyleena insertion SURGEON: Cathleen Guthrie ASSISTING SURGEON: Louisa Parrish Refer to Anesthesia Record ESTIMATED BLOOD LOSS: 0 PATHOLOGY: other (Right and left fallopian tubes to pathology) COMPLICATIONS: None Patient was transported to: PACU Patient's condition: stable Implants: Kyleena IUD. Lot # [id number] Indications: 36-year-old 5 para 1-0-2-3 female with a history of an ectopic treated with 2 courses of methotrexate the last dose on 09/13/2021. Patient reports persistent left lower quadrant pain with the onset of the ectopic and persisting despite apparently successful treatment. The plan was to remove the affected fallopian tube along with her contralateral fallopian tube to permanently sterilized the patient. At the time of her salpingectomy the plan is to insert a Kyleena IUD to treat longstanding dysmenorrhea. Findings: Uterus bulky in appearance left fallopian tube had a mid isthmic blue mass protruding from the serosal surface. There is no clubbing of the fimbriated end. Normal-appearing right fallopian tube normal-appearing ovaries. Small amount of filmy adhesions in proximity to the appendix preventing it from being visualized. Normal upper abdomen normal cul-de-sac. No evidence of endometriosis Procedure Description: Patient was taken to the operating room where she was placed in the dorsal supine position and endotracheal anesthesia was administered without difficulty. SCDs were in place. She was then placed in the dorsal lithotomy position in yellowfin stirrups and neurologically neutral position. A surgical timeout was performed. She was prepped and draped in the usual sterile fashion. A Zumi uterine manipulator was inserted in to the uterus and a huitron was placed to gravity drainage. The umbilical fold was infiltrated with 0.25% Marcaine without epinephrine and 12 mm vertical skin incision was made in the umbilicus. The abdomen was tented up with 2 penetrating towel clips through the vertical incision. Through this incision a varies needle connected to carbon dioxide gas was inserted into the abdomen and intra-abdominal placement confirmed by drop in the intra-abdominal pressure. Once a pneumoperitoneum was established a 12 mm Visiport trocar was introduced into the abdomen under direct visualization. The patient was then placed in Trendelenburg and 2 sites on the abdomen approximately 6 cm diagonal to the right of and left of the umbilical incision were transilluminated and the skin infiltrated with 0.25% Marcaine and incised with a scalpel. Uunder direct visualization two 5 mm ports were placed in the right and left lower quadrants respectively. The abdomen was inspected with the above-noted findings. The left fallopian tube located and followed out to its fimbriated end and a LigaSure electrocautery device was used to clamp cauterize and transect the fimbria from the left mesosalpinx to the level of the left uterine cornua. The left fallopian tube was then delivered intact through the 12 mm umbilical port and passed off of the operative field. A similar technique was carried out on the right fallopian tube without difficulty. The right fallopian tube was then delivered intact through the umbilical port. Both fallopian tube pedicles were inspected and noted to be hemostatic. Under direct visualization the two 5 mm ports were removed, pneumoperitoneum reduced, and the umbilical port removed. The fascia of the umbilical port site was reapproximated with interrupted suture of 0 Vicryl. The skin of all trocar sites was reapproximated with 4-0 Monocryl and covered with dry sterile dressings. With the pt in remaining in the dorsal lithotomy position the Zumi uterine manipulator was removed and a bivalve speculum was inserted into the vagina. A single tooth tenaculum was used to grasp the anterior lip of the cervix. The uterus was sounded to 8 cm. A Kyleena IUD was adjusted to the appropriate depth and placed into uterus where it was successfully deployed without complications. The introducer device was withdrawn and the strings were trimed to 5 cm . Instruments were removed from the vagina. The tenaculum site was hemostatic at the completion of the procedure. Patient was then placed in the dorsal supine position and awakened from anesthesia extubated and transported recovery area in stable condition. All sponge lap needle counts are correct x2.
[2021-11-20] MEDS: fentaNYL 100 MCG/2 ML VIAL IVP ×3 (10:30→10:52)
--- NOTE | 2021-11-20 10:36 | W.PM.DSUDISC ---
Discharge Plan Disposition Patient Disposition: HOME Discharge Details Reason For Visit: laparoscopic tubal sterilization Attending Provider: Cathleen Guthrie Primary Care Provider: Edi Izaguirre Home Meds and New Rx's Prescriptions: No Action oxycodone-acetaminophen [Endocet] 5-325 mg tablet 1 tab PO Q6H MDD 4 PRN (Reason: pain) Qty: 30 0RF buspirone 5 mg tablet 5 mg PO DAILY NAC 600 mg tablet 600 mg PO DAILY lamotrigine 100 mg tablet 150 mg PO DAILY Spirulina Powder 1 pwd MISCELLANEOUS DAILY Discharge Instructions Additional Instructions: You may have bleeding because of the IUD in place. I will call you this evening to check on you. Use the Percocet that you have to control pain and if you need more I will call the prescription into the pharmacy. Stand Alone Forms: [facility] Post Block Bolter Mule Operator SurgeryW/Incision Activity:: Activity as Tolerated Diet:: As Tolerated Discharge Orders Discharge Orders: Discharge Order (Routine); Ordered 11/20/21 Ordered By: Cathleen Guthrie
[2021-11-20] MEDS: LORazepam 20 MG/10 ML VIAL IVP ×2 (10:44→12:28)
[2021-11-20] MEDS: HYDROmorphone 2 MG TAB PO (12:07)
[2021-11-20] MEDS: Normal Saline Flush 10 ML SYR IV (12:29)
--- NOTE | 2021-11-20 12:55 | W.PM.DSUDISC ---
Discharge Plan Disposition Patient Disposition: HOME Condition: Good Discharge Details Reason For Visit: laparoscopic tubal sterilization Attending Provider: Cathleen Guthrie Primary Care Provider: Edi Izaguirre Home Meds and New Rx's Prescriptions: No Action oxycodone-acetaminophen [Endocet] 5-325 mg tablet 1 tab PO Q6H MDD 4 PRN (Reason: pain) Qty: 30 0RF hydromorphone 2 mg tablet 2 mg PO Q6H MDD 4 PRN (Reason: pain) Qty: 10 0RF buspirone 5 mg tablet 5 mg PO DAILY NAC 600 mg tablet 600 mg PO DAILY lamotrigine 100 mg tablet 150 mg PO DAILY Spirulina Powder 1 pwd MISCELLANEOUS DAILY Discharge Instructions Additional Instructions: You may have bleeding because of the IUD in place. I will call you this evening to check on you. Use the Hydromorphone for pain. Take one tablet every 6 hours. You may take that with Ibuprofen. Stand Alone Forms: Anesthesia Discharge Inst., [facility] Post Nuclear Physician SurgeryW/Nestor Castellon ([facility]) Referrals: Cathleen Guthrie MD [ [facility] STAFF PHYSICIAN] - 12/13/21 8:40 am Activity:: Activity as Tolerated Diet:: As Tolerated Discharge Orders Discharge Orders: Discharge Order (Routine); Ordered 11/20/21 Ordered By: Cathleen Guthrie
--- NOTE | 2021-11-20 13:51 | W.ANESPOSTOP ---
Postoperative Evaluation Date, Time and Location Date Performed: 11/20/21 Time Performed: 13:34 Patient Location: Day Surgery Unit Vital Signs Most Recent Imported Vital Signs: Most Recent Vital Signs Temp Pulse Resp BP Pulse Ox 36.7 C 77 16 112/72 98 11/20/21 13:34 11/20/21 13:34 11/20/21 13:34 11/20/21 13:34 11/20/21 13:34 Pain Score Most Recent Pain Score: Most Recent Pain Score Pain Level 5 11/20/21 13:34 Assessment Mental Status: Awake (Alert & Oriented to Patient Baseline) Airway and Respiratory Function: Patent airway with normal (patient baseline) respiratory exam Cardiovascular Function: Hemodynamically Stable Hydration Status: Adequately Hydrated Nausea & Vomiting: No Nausea or Vomiting Pain: Pain is tolerable per patient Peripheral Nerve Block: Patient did not receive a nerve block
== END 2021-11-20 13:56 | disposition home or self-care (01) ==
PROVIDERS: PCP Family Medicine; Visit Provider Obstetrics & Gynecology Gynecology
PROC: (CPT 58661; principal; 2021-11-20 09:00)
PROC: (CPT 58661; 2021-11-20 09:00)
DX: Z30.2 Encounter for sterilization (principal); R10.2 Pelvic and perineal pain; N80.9 Endometriosis, unspecified; N94.6 Dysmenorrhea, unspecified; N83.8 Other noninflammatory disorders of ovary, fallopian tube and broad ligament
CPT/HCPCS: 58661; 58300; 88302; J0131; J1100; J1885; J2250; J2405; J3010; J3490

== ENCOUNTER 2022-01-07 17:14 | Outpatient (REF) | payer MEDICAID, SELFPAY ==
[2022-01-07 21:19] LABS: Bilirubin Negative (Negative); Blood Trace-lysed (Negative); Clarity Clear (Clear); Glucose Negative (Negative); Ketones Negative (Negative); Leukocyte Esterase Negative (Negative); Nitrite Negative (Negative); Specific Gravity >= 1.030 (1.005-1.025); Urobilinogen 0.2 EU/dL (Up TO 0.2); pH 5.5 (5-8)
[2022-01-07 22:14] LABS: Bacteria Negative HPF (Negative); C & S Indicated? Yes; Casts Negative LPF (Negative); Crystals Negative HPF (Negative); Epithelial Cells Negative HPF (Negative); Mucus Negative (Negative); Other Cells Negative (Negative); RBC 0-2 HPF (0-2)
== END 2022-01-07 17:15 | disposition home or self-care (01) ==
LOC: LBN 17:14
PROVIDERS: PCP Family Medicine; Visit Provider Physician Assistant
DX: R30.0 Dysuria (principal); N39.0 Urinary tract infection, site not specified; R10.2 Pelvic and perineal pain; R10.9 Unspecified abdominal pain
CPT/HCPCS: 87077; 81003; 81015; 87086; 87186; 87480; 87510; 87660

== ENCOUNTER 2022-02-07 09:52 | Emergency (ER) | payer MEDICAID, SELFPAY ==
[2022-02-07 09:57] VITALS: BP 114/72; PULSE 120; RESP 18; TEMP 36.3; O2SAT 97
[2022-02-07 10:19] LABS: Bilirubin Negative (Negative); Blood Trace-lysed (Negative); Clarity Sl Cloudy (Clear); Glucose Negative (Negative); Ketones Negative (Negative); Leukocyte Esterase Negative (Negative); Nitrite Negative (Negative); Specific Gravity >= 1.030 (1.005-1.025)
[2022-02-07 10:31] LABS: Bacteria Few HPF (Negative); C & S Indicated? No/Sq. Contamination; Casts Negative LPF (Negative); Crystals Negative HPF (Negative); Epithelial Cells Moderate HPF (Negative); Mucus Heavy (Negative); WBC 0-2 HPF (0-5)
--- NOTE | 2022-02-07 10:31 | DI.RAD_ITS ---
Exam(s) XR PORTABLE CHEST AP POST LINE EXAM: XR PORTABLE CHEST AP POST LINE CLINICAL HISTORY: epigastric pain. TECHNIQUE: 2D digital imaging was performed. COMPARISON: CR ABD FLAT UPRIGHT PA CHEST from 06/04/2008 FINDINGS: Single AP portable view. Heart size is upper normal. The mediastinum is not widened. Lungs are clear. No infiltrates nor obvious pleural effusions. IMPRESSION: No acute pulmonary findings on this single AP portable view of the chest. DATA REPOSITORY: RADIATION DOSE DELIVERED:
--- NOTE | 2022-02-07 10:31 | DI.CT_ITS ---
Exam(s) CT ABDOMEN PELVIS W EXAM: CT ABDOMEN PELVIS W CLINICAL HISTORY: abdominal pain, fever. TECHNIQUE: Imaging Protocol: Axial computed tomography images with coronal and sagittal reformatted images were created and reviewed CONTRAST MATERIAL: Intravenous: Omnipaque 100cc Oral: None COMPARISON: CR XR PORTABLE CHEST AP POST LINE from 02/07/2022 FINDINGS: VISUALIZED LUNG BASES: No nodules nor pleural effusions evident. ABDOMEN: There is no ascites. LIVER: There are no focal hepatic lesions evident . GALLBLADDER/BILIARY: No obvious gallbladder pathology. CBD is not dilated. PANCREAS: No evidence of pancreatic mass nor dilatation of the pancreatic duct. SPLEEN: Spleen is not enlarged. No obvious intrasplenic lesions. Splenic and portal veins are paten t. ADRENALS: There are no significant adrenal masses. KIDNEYS:No cysts evident. No solid renal masses. No calculi nor hydronephrosis.. ABDOMINAL AORTA: Abdominal aorta is not enlarged. LYMPH NODES:There is no retroperitoneal nor paraaortic adenopathy. ABDOMINAL WALL: No evidence of significant anterior abdominal wall nor inguinal hernia. GI: There is surgical clips seen in the right side of the abdomen. Appendix is not seen and probably surgically absent. PELVIS: GI: No significant sigmoid diverticular disease. LYMPH NODES: There is no intrapelvic nor inguinal adenopathy. REPRODUCTIVE: IUD is noted in the endometrial canal in satisfactory position. Follicular cysts noted in both ovaries. No free fluid. URINARY BLADDER: No calculi nor obvious masses evident OSSEOUS: No significant osseous lesions. IMPRESSION: 1. There is an IUD in satisfactory position in the endometrial canal of the uterus. The uterus is an teverted. No abnormal adnexal findings nor free fluid. 2. Appendix is not seen and may be surgically absent. There is no evidence of acute inflammatory pro cess in either iliac fossa. No bowel obstruction. No free air. 3. Fluid filled upper normal diameter small bowel loops and right right-side of the colon, possibly an element of enteritis. Report called by myself to ER provider. RADIATION DOSE DELIVERED: 905.06mGy.cm Total DLP DATA REPOSITORY: All CT scans at this facility are submitted to the National Radiology Data Registry (NRDR) Dose Index Registry (DIR) with the [employer] (A[employer]). RADIATION OPTIMIZATION: All CT scans at this facility use at least one of these dose optimization te chniques: automated exposure control; mA and/or kV adjustment per patient size (includes targeted exa ms where dose is matched to clinical indication); or iterative reconstruction.
--- NOTE | 2022-02-07 10:43 | ED.GENADUL_ITS ---
Discharge Plan Disposition Patient Disposition: HOME Condition: Stable Discharge Details Clinical Impression: Abdominal pain, Acute viral syndrome Primary Care Provider: Edi Izaguirre ED Provider: Celsa Amaro Home Meds and New Rx's Prescriptions: New dicyclomine 20 mg tablet 20 mg PO QID Qty: 20 0RF sucralfate [Carafate] 1 gram tablet 1 g PO BID Qty: 14 0RF ondansetron 4 mg tablet,disintegrating 4 mg PO Q8H 5 Days Qty: 15 0RF Continued NAC 600 mg tablet 600 mg PO DAILY buspirone 5 mg tablet 5 mg PO DAILY PRN Kyleena 17.5 mcg/24 hrs (5 yrs) 19.5 mg intrauterine device 1 device intrauterine ONCE Rx Instructions: as a single dose lamotrigine 100 mg tablet 150 mg PO DAILY Spirulina Powder 1 pwd MISCELLANEOUS DAILY Discharge Instructions Instructions: Viral Syndrome (ED), Abdominal Pain (ED) Additional Instructions: take Bentyl as needed for pain, Tylenol 650 every 4-6 hours Take Carafate twice daily for the next week twice a day to see if that helps with her symptoms Rest, regular fluids and hydration, steroid from spicy foods, acidic foods, and fatty. Take Zofran as needed for nausea and vomiting and be reassessed with symptoms lasting longer than 2 to 3 days or with any new or worsening complaint urine recheck by pcp for blood (slight amount today) Discharge Data Discharge Date/Time-TO BE ENTERED AT DEPARTURE: 02/07/22 12:58 Medical Decision Making Patient appears well Potassium supplementation, 3.3, sodium 135 5-10 red blood cells in urine, encouraged to have urine rechecked by primary care physician CT abdomen and pelvis per radiology interpretation and my review does not show evidence of acute abnormality, discussed this case with Dr. Hunter, radiologist Patient discharged home feeling symptomatic improvement on Bentyl and Carafate for possible gastritis versus enteritis Given low threshold to return should she have new or worsening complaints Medical Records Medical records reviewed: Yes I reviewed the patient's medical records. Lab Data Lab results reviewed: Yes I reviewed the patient's lab results. HPI General Date/Time Provider Initiated Documentation: 02/07/22 09:53 . HPI Narrative: This 36-year-old female that he history of recent ectopic and subsequent tubal ligation bilateral presents with report of epigastric pain, diffuse myalgias, and fever last evening of 102. Patient states she has numerous sick contacts with Similar symptoms. She states she had negative COVID test at home. States she has nauseous but unable to vomit. She denies any diarrhea. She denies any chest pain or shortness of breath. She has any dizziness or weakness. Denies urinary symptoms. Related Data Home Medications Medication Instructions Recorded Confirmed acetylcysteine 600 mg tablet (NAC) 600 mg PO DAILY 10/09/21 02/07/22 lamotrigine 100 mg tablet 150 mg PO DAILY 11/18/21 02/07/22 blue-green algae (bulk) (Spirulina 1 pwd miscellaneous DAILY 11/20/21 02/07/22 powder) buspirone 5 mg tablet 5 mg PO DAILY PRN 11/29/21 02/07/22 levonorgestrel 17.5 mcg/24 hrs 1 device intrauterine ONCE 12/13/21 02/07/22 (5yrs) 19.5mg intrauterine device (Kyleena) dicyclomine 20 mg tablet 20 mg PO QID #20 tabs 02/07/22 ondansetron 4 mg disintegrating 4 mg PO Q8H 5 days #15 tabs 02/07/22 tablet sucralfate 1 gram tablet (Carafate) 1 g PO BID #14 tabs 02/07/22 Previous Rx's Medication Instructions Recorded dicyclomine 20 mg tablet 20 mg PO QID #20 tabs 02/07/22 ondansetron 4 mg disintegrating 4 mg PO Q8H 5 days #15 tabs 02/07/22 tablet sucralfate 1 gram tablet (Carafate) 1 g PO BID #14 tabs 02/07/22 Allergies Allergy/AdvReac Type Severity Reaction Status Date / Time escitalopram [From Lexapro] Allergy Verified 02/07/22 11:09 General Stated Complaint: Abd Prob ANGEL: 3 Review of Systems All systems reviewed & are unremarkable except as noted in HPI and below PFSH All Active Problems (Updated 02/07/22 @ 12:44 by OLIVER Rodriguez) Abdominal pain (Acute) Acute viral syndrome (Acute) IUD (intrauterine device) in place (Acute) Placed at time of laparoscopic salpingectomy to treat dysmenorrhea Surgical wound infection (Acute) History of salpingectomy (Acute) 11/20/21. For purpose of sterilization History of dysmenorrhea (Acute) Plan is to insert Kyleena IUD at time of laparoscopic salpingectomy Sterilization consult (Acute) 10/09/21. Federal consent signed. Left-sided back pain (Acute) Ectopic (Acute) Pelvic pain (Acute) Inevitable (Acute) Migraine headache without aura (Acute) Medical History ADHD Anxiety state Endometriosis History of depression Surgical History History of appendectomy History of laparoscopy 2012. For endometriosis. 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 Pets and animals: Yes Pets and animals: dog(s) What type of physical activity do you participate in: walking Seatbelt use: always Do you feel safe at home: Yes Do you feel safe in your relationship?: Yes Female Reproductive History Menstrual control method: pills and permanent sterilization (Kyleena IUD placed 11/2021 to treat dysmenorrhea) History History 5 Para 3 Hx # Term Pregnancies 3 Multiple births Hx # Pregnancies Ectopic pregnancies 1 AB induced 1 Hx Number of Living Children 3 AB spontaneous Exam Const General: cooperative, comfortable and no acute distress Eyes Pupils: PERRL Resp Effort & Inspection: normal respiratory effort Auscultation: clear to auscultation bilaterally Cardio Rate: regular rate GI Inspection: normal to inspection Other: tenderness with palpation to epigastrium Skin General skin exam: no rashes or lesions noted Neuro General: patient alert and patient oriented x3 Course Vital Signs Vital signs: Vital Signs Temperature 36.3 C L 02/07/22 09:57 Pulse 120 H 02/07/22 09:57 Respiratory Rate 18 10/07/22 09:57 Blood Pressure 114/72 02/07/22 09:57 Pulse Oximetry 97 02/07/22 09:57 Temperature 36.3 C L 02/07/22 09:57 Temperature Source Temporal Artery Scan 02/07/22 09:57 Pulse 120 H 02/07/22 09:57 Respiratory Rate 18 02/07/22 09:57 Blood Pressure 114/72 02/07/22 09:57 Blood Pressure Position Sitting 02/07/22 09:57 Pulse Oximetry 97 02/07/22 09:57 Oxygen Delivery Method Room Air 02/07/22 09:57 Oxygen Flow Rate 0 02/07/22 09:57 Lab/Test Results Lab/Test Results: Laboratory Tests Range/Units 02/07/22 10:04 Urine Color (Yellow) Yellow Urine Clarity (Clear) Sl Cloudy Urine pH (5-8) 6.0 Ur Specific [place] (1.005-1.025) >= 1.030 H Urine Protein (Negative) mg/dL Trace H Urine Ketones (Negative) mg/dL Negative Urine Blood (Negative) Trace-lysed H Urine Nitrite (Negative) Negative Urine Bilirubin (Negative) Negative Urine Urobilinogen (Up TO 0.2) EU/dL 1.0 H Ur Leukocyte Esterase (Negative) Negative Urine RBC (0-2) HPF 5-10 H Urine WBC (0-5) HPF 0-2 Ur Epithelial Cells (Negative) HPF Moderate Urine Crystals (Negative) HPF Negative Urine Bacteria (Negative) HPF Few Urine Casts (Negative) LPF Negative Urine Mucus (Negative) Heavy Ur Culture Indicated? No/Sq. Contamination Urine Glucose (Negative) mg/dL Negative POC- Test(urine) Negative
[2022-02-07] MEDS: Ondansetron 4 MG/2 ML VIAL IVP (11:06)
[2022-02-07] MEDS: MORPHine 4 MG/ML SYR IVP (11:06)
[2022-02-07] MEDS: Lactated Ringers 1,000 ML 1000 ML IV (11:06)
[2022-02-07 11:08] LABS: Abs Immature Grans 0.04 10^3/uL (0.0-0.06); Absolute Basophil Count 0.03 10^3/uL (0.0-0.2); Absolute Eosinophil Count 0.02 10^3/uL (0.0-0.7); Absolute Monocyte Count 0.73 10^3/uL (0.1-0.8); Absolute Neutrophil Count 7.87 10^3/uL (1.2-6.7); Basophils % 0.3; Eosinophils % 0.2; HCT 43.4 % (36.0-46.0); HGB 14.6 g/dL (11.2-15.7); Immature Grans % 0.4; Lymphocytes % 11.2; MCH 29.6 pg (27.0-33.0); MCHC 33.6 % (32.0-36.0); MCV 88 fL (80-95); MPV 9.1 fL (8.0-11.0); Monocytes % 7.5; Neutrophils % 80.4; Platelet Count 264 10^3/uL (130-400); RBC 4.94 10^6/uL (3.93-5.22); RDW 12.4 % (11.7-14.6); RDW-SD 39.9 fL; WBC 9.79 10^3/uL (4.4-10.8)
[2022-02-07] MEDS: Omnipaque 350 MG/ML 100 ML BTL IJ (11:26)
[2022-02-07 11:27] LABS: ALT 13 U/L (14-59); AST 9 U/L (15-37); Albumin 3.6 g/dL (3.4-5.0); Alkaline Phosphatase 59 U/L (46-116); Anion Gap 5.1 mmol/L (3-11); BUN 8 mg/dL (7-18); Bilirubin, Total 0.3 mg/dL (0.2-1.0); CO2 26.9 mmol/L (21.0-32.0); CREATININE 0.6 mg/dL (0.55-1.02); Calcium 8.5 mg/dL (8.5-10.1); Chloride 103 mmol/L (98-107); Estimated GFR 117.75 (mL/min/1.73m2); Glucose 98 mg/dL (74-106); Lipase 96 U/L (73-393); Potassium 3.3 mmol/L (3.5-5.1); Sodium 135 mmol/L (136-145); Total Protein 7.2 g/dL (6.4-8.2)
[2022-02-07 11:47] LABS: COVID-19 PCR Negative (Negative); Influenza A PCR Negative (Negative); Influenza B PCR Negative (Negative); RSV PCR Negative (Negative)
[2022-02-07] MEDS: HYDROmorphone 2 MG/ML SYR 1 MG IVP (11:59)
[2022-02-07] MEDS: Potassium Chloride 20 MEQ TABCR PO (12:50)
[2022-02-07] MEDS: Ketorolac 15 MG/ML VIAL IVP (12:50)
[2022-02-07] MEDS: Mylanta Suspension 30 ML CUP PO (12:50)
[2022-02-07 12:55] VITALS: BP 115/68; PULSE 95; RESP 18; TEMP 36.5; O2SAT 98
== END 2022-02-07 12:58 | disposition home or self-care (01) ==
PROVIDERS: Emergency Provider Physician Assistant; PCP Family Medicine
DX: B34.9 Viral infection, unspecified (principal); R10.13 Epigastric pain; F90.9 Attention-deficit hyperactivity disorder, unspecified type; Z20.822 Contact with and (suspected) exposure to COVID-19
CPT/HCPCS: 71045; 80053; 81025; 83690; 87637; 96361; 96374; 96375; 99285; 74177; 81003; 81015; 85025; 99284; J1170; J1885; J2270; J2405; J3490

== ENCOUNTER 2022-03-24 02:47 | Outpatient (CLI) | payer MEDICAID, SELFPAY ==
[2022-03-24 15:21] LABS: HCT 40.3 % (36.0-46.0); HGB 13.9 g/dL (11.2-15.7); MCH 29.5 pg (27.0-33.0); MCHC 34.5 % (32.0-36.0); MCV 86 fL (80-95); MPV 9.1 fL (8.0-11.0); Platelet Count 316 10^3/uL (130-400); RBC 4.71 10^6/uL (3.93-5.22); RDW 13.1 % (11.7-14.6); RDW-SD 40.9 fL
[2022-03-24 15:57] LABS: Anion Gap 11.1 mmol/L (3-11); BUN 15 mg/dL (7-18); CO2 23.9 mmol/L (21.0-32.0); CREATININE 0.8 mg/dL (0.55-1.02); Calcium 8.8 mg/dL (8.5-10.1); Chloride 103 mmol/L (98-107); Estimated GFR 96.66 (mL/min/1.73m2); Glucose 102 mg/dL (74-106); Sodium 138 mmol/L (136-145)
== END 2022-03-24 02:48 | disposition home or self-care (01) ==
LOC: LBO 02:47
PROVIDERS: PCP Family Medicine; Visit Provider Obstetrics & Gynecology Gynecology
DX: R10.2 Pelvic and perineal pain (principal); N94.4 Primary dysmenorrhea; Z01.818 Encounter for other preprocedural examination; Z01.812 Encounter for preprocedural laboratory examination
CPT/HCPCS: 36415; 80048; 85027; 86850; 86900; 86901

== ENCOUNTER 2022-03-24 15:16 | Outpatient (REF) | payer MEDICAID, SELFPAY ==
[2022-03-24 15:31] LABS: Source Nasal/Nares
[2022-03-24 16:42] LABS: COVID-19 PCR Negative (Negative)
== END 2022-03-24 15:17 | disposition home or self-care (01) ==
LOC: LBN 15:16
PROVIDERS: PCP Family Medicine; Visit Provider Obstetrics & Gynecology Gynecology
DX: Z20.822 Contact with and (suspected) exposure to COVID-19 (principal); Z01.818 Encounter for other preprocedural examination
CPT/HCPCS: 87635

== ENCOUNTER 2022-03-26 11:38 | Observation (INO) | payer MEDICAID, SELFPAY ==
[2022-03-26] VITALS (15 sets, daily range): BP systolic 75–119; BP diastolic 42–70; PULSE 63–107; RESP 13–18; TEMP 35.5–37.4; O2SAT 93–100; BMI 30.2
[2022-03-26 07:48] LABS: Source Nasal/Nares
--- NOTE | 2022-03-26 07:56 | ANES.PREOP_ITS ---
General Info Date of Service Date Performed: 03/26/22 Height: 5 ft 4 in Weight: 79.83 kg Body Mass Index (BMI): 30.2 Surgical Procedure: Operation Date: 03/26/22 09:10 Proposed Procedure Side Surgeon p Hysterectomy Vaginal Laparoscopic Assist Cathleen Guthrie MD Meds Allergies and Home Medications Allergies Allergy/AdvReac Type Severity Reaction Status Date / Time escitalopram [From Lexapro] Allergy Verified 03/26/22 08:03 Home Medication Medication Instructions Recorded lamotrigine 100 mg tablet 150 mg PO DAILY 11/18/21 blue-green algae (bulk) (Spirulina 1 pwd miscellaneous DAILY 11/20/21 powder) buspirone 5 mg tablet 5 mg PO DAILY PRN 11/29/21 hydromorphone 2 mg tablet 2 mg PO Q6H PRN pain #30 tabs 03/25/22 ondansetron HCl 4 mg tablet 4 mg PO Q6H PRN nausea and 03/25/22 vomiting #10 tabs Current Visit Medications: Current Medications Generic Name Dose Route Start Last Admin Trade Name Freq PRN Reason Stop Dose Admin Ringer's Solution 1,000 mls @ 125 mls/hr 03/26/22 06:00 IV 04/24/22 23:59 INFUSION MARIA ELENA Cefazolin Sodium/Dextrose 2 gm in 50 mls @ 100 mls/hr 03/26/22 06:00 Ancef Duplex IVPB 03/26/22 16:00 PREOP MARIA ELENA IV Miscellaneous Supplies 1 each 03/26/22 06:00 Iv Access IV 04/24/22 23:59 DIRECTED MARIA ELENA Sodium Chloride 0 ml 03/26/22 06:00 Normal Saline Flush 10 Ml Syr IV 04/24/22 23:59 PRN PRN Sodium Chloride 0 ml 03/26/22 06:00 Normal Saline 10 Ml Vial IJ 04/24/22 23:59 DIRECTED PRN Sterile Water 0 ml 03/26/22 06:00 Water,Injection,Sterile 10 Ml Vial IJ 04/24/22 23:59 DIRECTED PRN PFSH Active Problems Active Problems: Problem Status Onset Code Migraine headache without aura G43.009 Pelvic pain R10.2 Left-sided back pain M54.9 History of dysmenorrhea Z87.42 Pre-op exam Z01.818 Nausea and vomiting R11.2 Medical History Medical History ADHD Anxiety state Ectopic Endometriosis History of depression Surgical wound infection Medical History Comments:: Pt reports tics. Pt reports involuntary muscle spasms in face and hands. This is triggered by anxiety. Marijuana rarely. Surgical History Surgical History (Updated 03/25/22 @ 08:38 by Lizbet Rouse) History of appendectomy History of laparoscopy 2012. For endometriosis. History of tonsillectomy Hx of section 2019, Arrest disorder [place], [place] Hx of tubal ligation Tobacco Smoking/Tobacco Use Status: Never Alcohol Alcohol Intake: current Alcohol intake frequency: holidays/special occasions only Alcohol type: wine Substance Use Substance use: Never Substance use type: does not use Prental History History 5 Para 3 Hx # Term Pregnancies 3 Multiple births Hx # Pregnancies Ectopic pregnancies 1 AB induced 1 Hx Number of Living Children 3 AB spontaneous Vital Signs and Lab Results Lab Results Blood Type / Crossmatch: Patient ABO/Rh A Positive 03/24/22 Antibody Screen NEGATIVE 03/24/22 Complete Blood Count: White Blood Count 10.60 10^3/uL (4.4-10.8) 03/24/22 15:17 Red Blood Count 4.71 10^6/uL (3.93-5.22) 03/24/22 15:17 Hemoglobin 13.9 g/dL (11.2-15.7) 03/24/22 15:17 Hematocrit 40.3 % (36.0-46.0) 03/24/22 15:17 Platelet Count 316 10^3/uL (130-400) 03/24/22 15:17 Complete Metabolic Panel: Sodium 138 mmol/L (136-145) 03/24/22 15:17 Potassium 4.0 mmol/L (3.5-5.1) 03/24/22 15:17 Chloride 103 mmol/L (98-107) 03/24/22 15:17 Carbon Dioxide 23.9 mmol/L (21.0-32.0) 03/24/22 15:17 BUN 15 mg/dL (7-18) 03/24/22 15:17 Creatinine 0.8 mg/dL (0.55-1.02) 03/24/22 15:17 Est GFR (CKD-EPI 2020) 96.66 (mL/min/1.73m2) 03/24/22 15:17 Calcium 8.8 mg/dL (8.5-10.1) 03/24/22 15:17 Glucose 102 mg/dL (74-106) 03/24/22 15:17 Liver Function Panel: No Data to Display Coagulation Panel: No Data to Display Cardiac Panel: No Data to Display Arterial Blood Gas: No Data to Display Venous Blood Gas: No Data to Display Pancreas Panel: No Data to Display Thyroid Panel: No Data to Display Infectious Disease: Coronavirus (COVID-19)(PCR) Negative (Negative) 03/24/22 14:40 Coronavirus 2019 Source Nasal/Nares 03/26/22 07:42 Blood Cultures: No Data to Display Toxicology Panel: No Data to Display Panel: No Data to Display Anesthesia Assessment and Plan Anesthesia History Personal History: No History of Anesthesia Complications Family History: No Family History of Anesthesia Complications Exercise Tolerance Exercise Tolerance: Metabolic Equivalents>4 Pertinent Negatives Pertinent Negatives: No Symptoms of GERD, No Major Cardiovascular Symptoms or Complaints, No Major Pulmonary Symptoms or Complaints and No History of CVA/TIA Cardiac & Pulmonary Exam Cardiac Exam: Normal S1/S2 Heart Sounds Pulmonary Exam: Clear Bilateral Breath Sounds Implantable Cardiac Device Does patient have a Pacemaker or an ICD?: No Airway Exam Known Difficult Airway: No Mallampati Class: 2 Mouth Opening: Normal (> 3cm) Thyromental Distance: Greater than 3 cm Neck Range of Motion: Full ROM Neck Circumference: Normal Teeth Condition: Normal Dentition ASA Classification ASA Score: ASA 2 Emergency Case?: No NPO Status NPO Status: NPO Clears >2 hours, Solids >8 hours Status Status: Negative HCG Anesthesia Plan Resuscitation Status: Full Code Anesthesia Technique: General Anesthesia Airway Planned: Endotracheal Tube Pain Management: Intrathecal Analgesia Monitors Used: Standard Monitors
[2022-03-26] MEDS: Lactated Ringers 1,000 ML 125 ML IV ×3 (08:05→20:21)
[2022-03-26 08:20] LABS: COVID-19 PCR Negative (Negative)
[2022-03-26] MEDS: ceFAZolin 2 GM/50 ML BAG IVPB (09:25)
[2022-03-26] MEDS: Bupivacaine 0.25% Pres-Free 30 ML VIAL (10:28)
--- NOTE | 2022-03-26 10:49 | UTER_PTH ---
PATIENT: Taniya Moncada LOC: [id number]#:[id number] AGE/SX: 36/F ROOM: RE03/26/[address]: Cathleen Guthrei : 1985 BED: A DIS: 03/27/2022 SPEC #: [id number] RECD: 03/26/22 12:46 STATUS: KAYLIN REQ #: [id number] CASSIUS: 03/26/22 10:[address]: Cathleen Guthrie DEPT: Surgical Specimen RECD BY: Celsa Card ENTERED: 03/26/22 12:47 SP TYPE: UTER OTHR DR: Edi Izaguirre Tissues: 1 - UTERUS W OR W/O OVARIES(NOT TUMOR/PROLAPSE) Procedures: GROSS AND MICRO LEVEL 5 Comments: [id number]
--- NOTE | 2022-03-26 11:42 | W.PM.OP ---
Date of service: 03/26/22 Time of Service: 11:43 Operative Note Operative Note DATE OF PROCEDURE: 03/26/22 PRE-OP DIAGNOSIS: Dysmenorrhea, left-sided pelvic pain POST-OP DIAGNOSIS: same PROCEDURE: Laparoscopic-assisted vaginal hysterectomy ovarian conservation SURGEON: Cathleen Guthrie ASSISTING SURGEON: Louisa Parrish Refer to Anesthesia Record ESTIMATED BLOOD LOSS: 300 PATHOLOGY: other (Uterus and cervix to pathology) COMPLICATIONS: None Patient was transported to: PACU Patient's condition: stable Indications: 36-year-old 5 para 1-0-2-3 female history of pelvic pain localized to the left lower quadrant and associated dysmenorrhea. The unremitting pelvic pain has been present since since her left-sided ectopic treated in September 2021.? She has a history of dysmenorrhea but it worsened at the time of the ectopic and has not responded to a Kyleena IUD.? Patient has requested definitive therapy in the form of hysterectomy Findings: Absent fallopian tubes secondary to bilateral salpingectomy in the past. Uterus is small normal in appearance, no evidence of adnexal masses, no pelvic adhesions. Upper abdomen normal. Procedure Description: Patient was taken to the operating room where she received spinal anethesia. She was then placed in the dorsal supine position and general endotracheal anesthesia was administered without difficulty. She was positioned in the dorsal lithotomy position in yellowfin stirrups with SCDs in place. After being prepped and draped in the usual sterile fashion a surgical timeout was performed. Webb catheter was placed to gravity drainage. A bivalve speculum was placed in the vagina the anterior lip of the cervix was grasped with a single-tooth tenaculum. A Johana uterine manipulator was successfully inserted into the uterine cavity, the catheter bulb inflated with 8 cc of normal saline and the device left in place. Attention was then turned to the patient's abdomen. She received 2 g of Ancef on arrival in the OR. Sitter The umbilical fold was infiltrated with 0.25% Marcaine without epinephrine. A scalpel was then used to make a 12mm vertical skin incision in the umbilical fold. Two penetrating towel clips were used to tent up the skin and through the periumbilical incision and a Veres needle was introduced into the abdomen with carbon dioxide as the distention medium. Intra-abdominal placement was confirmed by a drop in the intra-abdominal pressure. Once a pneumoperitoneum was established a 12 mm Visiport was placed under direct visualization. Patient was then placed in Trendelenburg position. The skin was infiltrated with 1cc of 0.25% Marcaine without epinephrine at two sites 6 cm diagonal from the umbilical incision. Those sites were incised with a scalpel and two 5 mm lower ports were placed under direct visualization. After careful inspection of the pelvis a LigaSure device was used to clamp cauterize and transect the left proper ovarian ligament from its attachment to the body of the uterus. The left round ligament and broad ligament were then clamped, cauterized and transected to the level of the lower uterine segment. The vesico-uterine peritoneum was incised and the the from the lower uterine segment and mobilized off of the body of the cervix. The pedicles of the uterine round and broad ligaments were inspected and noted to be hemostatic. On the contralateral side the right proper ovarian ligament, round, and right broad ligament were sequentially clamped, cauterized and transected using the Ligasure device to the level of the insertion of the uterine artery. The remaining the vesicouterine peritoneum was incised across the lower uterine segment and the bladder flap created using the Ligasure device and gently counter traction. All pedicles were inspected and noted to be hemostatic. Decision was made to proceed with the vaginal portion of the case. Laparoscopic instruments were removed from the ports , the pneumoperitoneum was reduced, and the was abdomen covered with sterile drape. A weighted vaginal speculum was placed in the vagina and the anterior and posterior lips of the cervix were grasped with Candy clamps. Body of the cervix was circumferentially incised using Bovie electrocautery. The posterior cul-de-sac was entered sharply and the posterior vaginal cuff was attached to the posterior peritoneum using a running suture of 0 Vicryl. A long billed weighted speculum was placed throughout the posterior cul-de-sac incision left in place.. The left and right uterosacral ligament complexes were identified clamped, transected and suture-ligated and the suture held long. The vesicouterine fascia was identified and the anterior cul-de-sac bluntly sharply. Through this incision a curved right angled retractor was inserted and used to retract the bladder away from the operative field. The remaining right and left broad ligament attachments were sequentially clamped, cauterized, and transected and the specimen was passed off of the operative field. The vaginal cuff was reapproximated in a horizontal fashion with a running suture of 0 Vicryl. Instruments were removed from the vagina and attention was again turned to the abdomen where a pneumoperitoneum was reestablished and the pelvis inspected using the laparoscope. The vaginal cuff was intact and was hemostatic as were the round ligament and broad ligament pedicles. Both ureters were located and observed to be peristalsing. The instruments were removed from the port sites, the pneumoperitoneum reduced and the ports removed. The fascia of the periumbilical skin incision was closed with interrupted suture of 0 Vicryl. The skin of all port site incisions were reapproximated with a subcuticular closure of 4-0 Monocryl and and covered with sterile steri-strips and a band-aid. Patient was awakened extubated transported recovery area in stable condition all sponge lap needle counts correct x2.
[2022-03-26] MEDS: ePHEDrine 25 MG/5 ML Syringe IVP ×2 (12:02→12:23)
[2022-03-26] MEDS: HYDROmorphone 2 MG/ML SYR IVP (12:12)
[2022-03-26] MEDS: Normal Saline 10 ML VIAL IJ (12:12)
--- NOTE | 2022-03-26 12:27 | W.ANESPOSTOP ---
Postoperative Evaluation Date, Time and Location Date Performed: 03/26/22 Time Performed: 12:27 Patient Location: PACU Vital Signs Most Recent Imported Vital Signs: Most Recent Vital Signs Temp Pulse Resp BP Pulse Ox 36.4 C L 74 13 107/53 L 100 03/26/22 12:18 03/26/22 12:18 03/26/22 12:18 03/26/22 12:18 03/26/22 12:18 Pain Score Most Recent Pain Score: Most Recent Pain Score Pain Level 6 03/26/22 12:18 Assessment Mental Status: Awake (Alert & Oriented to Patient Baseline) Airway and Respiratory Function: Patent airway with normal (patient baseline) respiratory exam Cardiovascular Function: Hemodynamically Stable Hydration Status: Adequately Hydrated Nausea & Vomiting: No Nausea or Vomiting Pain: Pain is tolerable per patient Peripheral Nerve Block: Regional nerve block not resolved at time of post operative discharge (Spinal wearing off appropriately. Remains slightly more dense L>R. Patient reports able to move legs the same but unable to wiggle toes in left foot. )
[2022-03-26] MEDS: HYDROmorphone 2 MG TAB PO ×3 (13:19→20:02)
[2022-03-26] MEDS: Ketorolac 30 MG/ML VIAL IVP ×2 (13:38→19:32)
[2022-03-26] MEDS: Normal Saline Flush 10 ML SYR IV ×2 (13:38→19:32)
[2022-03-26] MEDS: Acetaminophen 500 MG TAB PO ×2 (14:29→20:02)
--- NOTE | 2022-03-26 14:35 | NUR.NOTE ---
Nursing Note: Per pt., pt.'s mother is listed on her HIPAA, but only because ...I had to add her since she's my ride home. Pt. requesting that her mother not be given any information regarding her admission, status, etc. Pt. states, You can tell her that I had a hysterectomy and that I'm fine and that's it please. Pt. notified that this RN would make a nursing note regarding this conversation and would pass along the message to the on-coming nurse.
[2022-03-26] MEDS: busPIRone 5 MG TAB PO (15:55)
[2022-03-26] MEDS: Docusate Sodium 100 MG CAP PO (19:33)
[2022-03-26] MEDS: diphenhydrAMINE 25 MG CAP PO (21:11)
[2022-03-27] MEDS: Ketorolac 30 MG/ML VIAL IVP (02:12)
[2022-03-27] MEDS: Normal Saline Flush 10 ML SYR IV (02:13)
[2022-03-27 02:19] VITALS: BP 98/59; PULSE 67; RESP 18; TEMP 36.6; O2SAT 98
[2022-03-27] MEDS: Lactated Ringers 1,000 ML 125 ML IV (04:06)
[2022-03-27] MEDS: HYDROmorphone 2 MG TAB PO ×2 (06:17→09:30)
[2022-03-27 06:33] LABS: HCT 32.6 % (36.0-46.0); MCH 29.6 pg (27.0-33.0); MCHC 33.7 % (32.0-36.0); MCV 88 fL (80-95); MPV 9.4 fL (8.0-11.0); Platelet Count 248 10^3/uL (130-400); RBC 3.71 10^6/uL (3.93-5.22); RDW 13.3 % (11.7-14.6); RDW-SD 42.5 fL; WBC 14.02 10^3/uL (4.4-10.8)
--- NOTE | 2022-03-27 07:27 | W.PM.DS.N ---
Date of service: 03/27/22 Time of Service: 07:27 DS: Diagnosis Discharge Diagnosis (1) Pelvic pain: Status: Acute (2) S/P laparoscopic assisted vaginal hysterectomy (LAVH): Status: Acute Discharge Plan Disposition Patient Disposition: Home Condition: Improving Discharge Details Reason For Visit: Laparoscopic-Assisted Vaginal Hysterectomy Admit Date/Time: 03/26/22 11:38 Admit Provider: Cathleen Guthrie Attending Provider: Cathleen Guthrie Primary Care Provider: Edi Izaguirre Hospital Course Hospital Course: Patient was admitted the morning of surgery and underwent a laparoscopic-assisted vaginal hysterectomy without complications. She was discharged to home on postop day tolerating a regular diet. Her pain was controlled with oral Dilaudid and IV Toradol. She has prescription for Dilaudid 2 mg 1 tablet every 6 hours. She also has ibuprofen 600 mg every 6 hours at home to use in addition to the Dilaudid. Plans to have her follow-up in 2 weeks for inspection of her incisions and to review pathology which is currently pending at the time of discharge. Patient is aware of lifting limitations and activity limitations. 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 Form Activity:: Activity as Tolerated Equipment/Supplies:: No Equipment Needed Diet:: As Tolerated Discharge Orders Discharge Orders: Discharge Order (Routine); Ordered 03/27/22 Ordered By: Cathleen Guthrie DS: Summary Time Spent with Patient providing and/or coordinating discharge services: Less than 30 minutes Status at Discharge Functional status at discharge: independent ambulation Overall status at discharge: patient is progressing back to baseline Mental Status: mental status grossly normal Speech and Movement: speech and movement normal Mood: anxious mood Affect: normal affect Exam Const General: no acute distress Nutritional Appearance: overweight Orientation: alert, awake and oriented x3 Neck Neck: normal visual inspection Resp Effort & Inspection: normal respiratory effort Auscultation: clear to auscultation bilaterally Cardio Rate: regular rate Rhythm: regular rhythm GI Inspection: normal to inspection, no abdominal wall ecchymosis and incision (Trocar sites covered with Band-Aids) Palpation: soft, no masses and tender Auscultation: normal bowel sounds Back/Spine/Pelvis Back: no CVA tenderness Skin General skin exam: no rashes or lesions noted Extrem General: normal to inspection, full ROM, capillary refill normal and no pedal edema Psych Appearance: grossly normal Mental Status: mental status grossly normal Speech and Movement: speech and movement normal Mood: anxious mood Affect: normal affect Attitude: cooperative Thought Process: normal Thought Content: normal Insight: insight good Judgment: judgment good DS: Data Vitals/I&O Vitals and I&O: Vital Signs Temperature 97.9 F 03/27/22 02:19 Temperature Source Skin 03/27/22 02:19 Pulse 67 03/27/22 02:19 Pulse Rhythm Regular 03/27/22 02:32 Respiratory Rate 18 03/27/22 02:19 Respiratory Effort Non-Labored 03/27/22 02:32 Respiratory Depth Normal 03/27/22 02:32 Respiratory Pattern Normal 03/27/22 02:32 Blood Pressure 98/59 L 03/27/22 02:19 Pulse Oximetry 98 03/27/22 02:19 Respiratory End-tidal CO2 36 03/26/22 12:33 Oxygen Delivery Method Room Air 03/27/22 02:19 Oxygen Flow Rate 0 03/27/22 02:19 Pain Level 5 03/26/22 21:02 Comment 03/26/22 12:48 Intake & Output 03/26/22 03/26/22 03/27/22 11:59 23:59 11:59 Intake Total 750 / 2357.083 1607.083 / 2357.083 1333.333 / 1333.333 Output Total 300 / 1025 725 / 1025 400 / 400 Balance 450 / 1332.083 882.083 / 1332.083 933.333 / 933.333 Weight 175 lb 15.92 oz Intake: IV 750 / 7414.502 6927.083 / 2783.833 9553.333 / 1333.333 Oral 480 / 480 Output: Urine 725 / 725 400 / 400 Estimated Blood Loss 300 / 300 Other: Urine Color Pale Yellow Yellow Urine Appearance Clear Clear Clear Comment PACU. Emesis Description None None Data Completed and Pending Labs on day of discharge: Labs from last 24 hours 03/27/22 03/26/22 06:02 07:42 WBC 14.02 H RBC 3.71 L Hgb 11.0 L D Hct 32.6 L MCV 88 MCH 29.6 MCHC 33.7 RDW 13.3 Plt Count 248 MPV 9.4 COVID-19 Source Nasal/Nares SARS-CoV-2 (PCR) Negative PFSH All Active Problems (Updated 03/27/22 @ 07:29 by Cathleen Guthrie MD) S/P laparoscopic assisted vaginal hysterectomy (LAVH) (Acute) 03/26/2022 Migraine headache without aura (Acute) Pelvic pain (Acute) Left-sided back pain (Acute) History of dysmenorrhea (Acute) Pre-op exam (Acute) Nausea and vomiting (Acute) Medical History (Updated 03/27/22 @ 07:29 by Cathleen Guthrie MD) ADHD Anxiety state Ectopic Endometriosis History of depression Surgical wound infection Surgical History (Updated 03/27/22 @ 07:28 by Cathleen Guthrie MD) History of appendectomy History of laparoscopy 2012. For endometriosis. 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
[2022-03-27 07:39] VITALS: BP 111/68; PULSE 84; RESP 17; TEMP 37.2; O2SAT 98
[2022-03-27] MEDS: Docusate Sodium 100 MG CAP PO (07:41)
[2022-03-27] MEDS: lamoTRIgine 100 MG TAB 150 MG PO (07:41)
== END 2022-03-27 09:39 | disposition home or self-care (01) ==
LOC: MS 13:02
PROVIDERS: Admitting Provider Obstetrics & Gynecology Gynecology; PCP Family Medicine; Visit Provider Obstetrics & Gynecology Gynecology
PROC: 0UT9FZZ Resection of Uterus, Via Natural or Artificial Opening With Percutaneous Endoscopic Assistance (ICD-10-PCS; CPT 58550; principal; 2022-03-26 09:00)
DX: R10.2 Pelvic and perineal pain (principal); Z20.822 Contact with and (suspected) exposure to COVID-19; F41.9 Anxiety disorder, unspecified; G43.009 Migraine without aura, not intractable, without status migrainosus; F90.9 Attention-deficit hyperactivity disorder, unspecified type; N94.6 Dysmenorrhea, unspecified; Z23 Encounter for immunization; R87.618 Other abnormal cytological findings on specimens from cervix uteri
CPT/HCPCS: 58550; 36415; 85027; 87635; 90471; 90686; 96361; 96374; 88307; G0378; J0690; J1100; J1170; J1885; J2250; J2405; J2704; J3010

== ENCOUNTER 2022-04-19 23:36 | Observation (INO) | payer MEDICAID, SELFPAY ==
[2022-04-19 23:40] VITALS: BP 119/45; PULSE 88; RESP 14; TEMP 36.7; O2SAT 98
--- NOTE | 2022-04-19 23:43 | W.ED.GENAD ---
Discharge Plan Disposition Patient Disposition: Admit to [facility] Condition: Serious Discharge Details Clinical Impression: Vaginal hemorrhage Primary Care Provider: Edi Izaguirre ED Provider: Johnson Orozco Home Meds and New Rx's Prescriptions: No Action buspirone 5 mg tablet 5 mg PO DAILY PRN Label Comments: Pt states no longer using.HE ondansetron HCl 4 mg tablet 4 mg PO Q6H PRN (Reason: nausea and vomiting) Qty: 10 0RF hydromorphone 2 mg tablet 2 mg PO Q6H MDD 4 PRN (Reason: pain) Qty: 20 0RF sulfamethoxazole-trimethoprim [Bactrim DS] 800-160 mg tablet 1 tab PO BID Qty: 14 0RF lamotrigine 100 mg tablet 150 mg PO DAILY Spirulina Powder 1 pwd MISCELLANEOUS DAILY Medical Decision Making 36-year-old female approximately 3 weeks status post vaginal hysterectomy presents with severe bright red blood per vagina following intercourse tonight. She presents pale in appearance with ongoing vaginal bleeding present. Concern for intravaginal dehiscence or tear. On-call CURTAIN SUPERVISOR Dr. Guthrie presented emergently to the patient's bedside and evaluated her with me. Patient has 2 units of blood ordered, IV access has been established, she will be taken to the OR for operative treatment. HPI General Mode of arrival: EMS. Date/Time Provider Initiated Documentation: 04/19/22 23:52. Limitations to Documentation: no limitations. Information obtained by: patient and EMS. History of Present Illness 36 year old F presents to the emergency department with the chief complaint of Vaginal bleeding after intercourse, 3 weeks status post hysterectomy, described as moderate and severe, and is localized to the abdomen and pelvis. Patient reports no radiation. Patient started experiencing this minute(s) and it has been intermittent. No relieving factors improve symptom(s), No exacerbating factors reported . Patient did receive the following treatments prior to arrival, other (IO placed to right tibia and TXA administered) Related Data Home Medications Medication Instructions Recorded Confirmed lamotrigine 100 mg tablet 150 mg PO DAILY 11/18/21 04/04/22 blue-green algae (bulk) (Spirulina 1 pwd miscellaneous DAILY 11/20/21 04/04/22 powder) buspirone 5 mg tablet 5 mg PO DAILY PRN 11/29/21 04/04/22 ondansetron HCl 4 mg tablet 4 mg PO Q6H PRN nausea and 03/25/22 04/04/22 vomiting #10 tabs hydromorphone 2 mg tablet 2 mg PO Q6H PRN pain #20 tabs 04/03/22 04/04/22 sulfamethoxazole 800 1 tab PO BID #14 tabs 04/04/22 04/04/22 mg-trimethoprim 160 mg tablet (Bactrim DS) Previous Rx's Medication Instructions Recorded ondansetron HCl 4 mg tablet 4 mg PO Q6H PRN nausea and 03/25/22 vomiting #10 tabs hydromorphone 2 mg tablet 2 mg PO Q6H PRN pain #20 tabs 04/03/22 sulfamethoxazole 800 1 tab PO BID #14 tabs 04/04/22 mg-trimethoprim 160 mg tablet (Bactrim DS) Allergies Allergy/AdvReac Type Severity Reaction Status Date / Time escitalopram [From Lexapro] Allergy Verified 04/04/22 08:21 General ANGEL: 3 Review of Systems Narrative: Denying during intercourse. Abdominal pain. She has been feeling well. PFSH All Active Problems (Updated 04/19/22 @ 23:54 by Johnson Orozco MD) Vaginal hemorrhage (Acute) Encounter for postoperative wound check (Acute) Vaginal odor (Acute) Screen for STD (sexually transmitted disease) (Acute) Dysuria (Acute) S/P laparoscopic assisted vaginal hysterectomy (LAVH) (Acute) 03/26/2022 Migraine headache without aura (Acute) Pelvic pain (Acute) Left-sided back pain (Acute) History of dysmenorrhea (Acute) Pre-op exam (Acute) Nausea and vomiting (Acute) Medical History ADHD Anxiety state Ectopic Endometriosis History of depression Surgical wound infection Surgical History History of appendectomy History of laparoscopy 2012. For endometriosis. 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 Pets and animals: Yes Pets and animals: dog(s) What type of physical activity do you participate in: walking Seatbelt use: always Do you feel safe at home: Yes Do you feel safe in your relationship?: Yes Female Reproductive History Menstrual control method: pills and permanent sterilization History History 5 Para 3 Hx # Term Pregnancies 3 Multiple births Hx # Pregnancies Ectopic pregnancies 1 AB induced 1 Hx Number of Living Children 3 AB spontaneous Exam Narrative Exam Narrative: GEN: awake, alert, pale in appearance HEAD: Normocephalic, atraumatic ENT: Mucous membranes moist, oropharynx unremarkable, External ear exam unremarkable EYES: PERRL, EOMI NECK: Full ROM, no BRANDON, no menigismus CHEST/RESP: Nontender, clear to auscultation bilateral, no wheeze/rhonchi/rales CARDIOVASCULAR: Regular,, no murmur, rub pedro. 2+ Rad pulse bilateral ABDOMEN: Soft, nontender, no mass. There is bright red vaginal bleeding present on CURTAIN SUPERVISOR exam. EXT: Full ROM, no edema, IO present right tibia Neuro: Grossly normal neurologic exam, conversant, interactive. Psych: Speech fluent, thoughts congruent, affect normal Course Lab/Test Results Lab/Test Results: Laboratory Tests Range/Units 04/19/ 23:25 Crossmatch See Detail
[2022-04-19] MEDS: fentaNYL 100 MCG/2 ML VIAL (23:55)
[2022-04-19] MEDS: Ondansetron 4 MG/2 ML VIAL (23:55)
[2022-04-19 23:56] LABS: Abs Immature Grans 0.05 10^3/uL (0.0-0.06); Absolute Basophil Count 0.04 10^3/uL (0.0-0.2); Absolute Eosinophil Count 0.11 10^3/uL (0.0-0.7); Absolute Lymphocyte Count 4.34 10^3/uL (1.2-3.4); Absolute Monocyte Count 0.72 10^3/uL (0.1-0.8); Absolute Neutrophil Count 5.87 10^3/uL (1.2-6.7); Basophils % 0.4; HCT 34.3 % (36.0-46.0); HGB 11.5 g/dL (11.2-15.7); Immature Grans % 0.4; MCH 29.2 pg (27.0-33.0); MCHC 33.5 % (32.0-36.0); MCV 87 fL (80-95); Monocytes % 6.5; Neutrophils % 52.7; Platelet Count 356 10^3/uL (130-400); RBC 3.94 10^6/uL (3.93-5.22); RDW 12.6 % (11.7-14.6); RDW-SD 40.2 fL; WBC 11.13 10^3/uL (4.4-10.8)
--- NOTE | 2022-04-19 23:57 | HPE_ITS ---
Date of service: 04/19/22 Time of Service: 23:57 Assessment and Plan Assessment and plan (1) Vaginal hemorrhage: Status: Acute Assessment and plan: Patient is has been consented for a exam under anesthesia repair of vaginal laceration. Informed consent was obtained questions were answered. (2) S/P laparoscopic assisted vaginal hysterectomy (LAVH): Status: Acute History of Present Illness History of Present Illness Chief Complaint: Vaginal bleeding during intercourse after laparoscopic-assisted vaginal hys Consults Consult date: 04/20/22 Requesting physician: Johnson Orozco Narrative: 36-year-old 5 para 1-0-2-3 female who presents to [facility] emergency department via ambulance after an episode of vaginal intercourse resulting in a sudden gush of blood. Patient recently had an initial postop visit after a LAVH on 03/26/22. Her surgery was unremarkable and she was discharged to home on POD1. Rx for Dilaudid 2mg q6hrs was given to pt and she reports satisfactory pain control using both the Dilaudid and Ibuprofen. No issues with bowel or bladder function. 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 Findings at the time of surgery: Absent fallopian tubes secondary to bilateral salpingectomy in the past.? Uterus is small normal in appearance, no evidence of adnexal masses, no pelvic adhesions.? Upper abdomen normal. Final pathology: Secretory endometrium. Focal adenomyosis. Review of Systems Narrative: No previous intercourse. No vaginal bleeding. Patient reports sudden episode of bright red blood followed by pain at the time of consensual vaginal intercourse. All systems reviewed & are unremarkable except as noted in HPI and below PFSH All Active Problems (Updated 04/19/22 @ 23:54 by Johnson Orozco MD) Vaginal hemorrhage (Acute) Encounter for postoperative wound check (Acute) Vaginal odor (Acute) Screen for STD (sexually transmitted disease) (Acute) Dysuria (Acute) S/P laparoscopic assisted vaginal hysterectomy (LAVH) (Acute) 03/26/2022 Migraine headache without aura (Acute) Pelvic pain (Acute) Left-sided back pain (Acute) History of dysmenorrhea (Acute) Pre-op exam (Acute) Nausea and vomiting (Acute) Medical History ADHD Anxiety state Ectopic Endometriosis History of depression Surgical wound infection Surgical History History of appendectomy History of laparoscopy 2013. For endometriosis. 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 Pets and animals: Yes Pets and animals: dog(s) What type of physical activity do you participate in: walking Seatbelt use: always Do you feel safe at home: Yes Do you feel safe in your relationship?: Yes Female Reproductive History Menstrual control method: pills and permanent sterilization History History 5 Para 3 Hx # Term Pregnancies 3 Multiple births Hx # Pregnancies Ectopic pregnancies 1 AB induced 1 Hx Number of Living Children 3 AB spontaneous Meds Allergies and Home Medications Allergies Allergy/AdvReac Type Severity Reaction Status Date / Time escitalopram [From Lexapro] Allergy Verified 04/04/22 08:21 Home Medications Medication Instructions Recorded Confirmed Type lamotrigine 100 mg tablet 150 mg PO DAILY 11/18/21 04/04/22 History blue-green algae (bulk) (Spirulina 1 pwd miscellaneous DAILY 11/20/21 04/04/22 History powder) buspirone 5 mg tablet 5 mg PO DAILY PRN 11/29/21 04/04/22 History ondansetron HCl 4 mg tablet 4 mg PO Q6H PRN nausea and 03/25/22 04/04/22 Rx vomiting #10 tabs hydromorphone 2 mg tablet 2 mg PO Q6H PRN pain #20 tabs 04/03/22 04/04/22 Rx sulfamethoxazole 800 1 tab PO BID #14 tabs 04/04/22 04/04/22 Rx mg-trimethoprim 160 mg tablet (Bactrim DS) Exam Const General: in distress (Mentating speaking in complete sentences anxious) moderate and anxious Nutritional Appearance: well nourished Orientation: alert, awake and oriented x3 Resp Effort & Inspection: normal respiratory effort Auscultation: clear to auscultation bilaterally Cardio Rate: regular rate Rhythm: regular rhythm GI Inspection: normal to inspection Palpation: soft and no hepatosplenomegaly General: other ( when vaginal packing removed red blood enco) Other: Copious bright red blood from the vagina. Unable to palpate bowels in the vagina. Organized clots present. Skin General skin exam: no rashes or lesions noted (pale try to touch.) Extrem General: normal to inspection and vascular access (Interosseous IV site right lower extremity.) Psych Mental Status: mental status grossly normal Mood: anxious mood Affect: anxious affect Attitude: cooperative Thought Process: normal Thought Content: normal Insight: insight good Judgment: judgment good Results Labs Result diagrams: 04/19/22 23:24 04/19/22 23:25 Labs: Laboratory Results - last 24 hr 04/19/22 23:25 Crossmatch See Detail
[2022-04-20] VITALS (17 sets, daily range): BP systolic 78–114; BP diastolic 36–61; PULSE 80–116; RESP 16–18; TEMP 36.1–36.7; O2SAT 98–100; BMI 28.0
[2022-04-20] MEDS: Normal Saline 100 ML 1000 ML
[2022-04-20 00:09] LABS: ALT 13 U/L (14-59); AST 12 U/L (15-37); Albumin 3.3 g/dL (3.4-5.0); Alkaline Phosphatase 52 U/L (46-116); Anion Gap 8.2 mmol/L (3-11); BUN 16 mg/dL (7-18); Bilirubin, Total 0.2 mg/dL (0.2-1.0); CO2 23.8 mmol/L (21.0-32.0); CREATININE 0.7 mg/dL (0.55-1.02); Calcium 8.4 mg/dL (8.5-10.1); Chloride 108 mmol/L (98-107); Estimated GFR 113.46 (mL/min/1.73m2); Glucose 138 mg/dL (74-106); Potassium 3.6 mmol/L (3.5-5.1); Sodium 140 mmol/L (136-145); Total Protein 6.1 g/dL (6.4-8.2)
--- NOTE | 2022-04-20 00:10 | ANES.PREOP_ITS ---
General Info Date of Service Date Performed: 04/20/22 Height: 5 ft 4 in Weight: 74 kg Body Mass Index (BMI): 28.0 Meds Allergies and Home Medications Allergies Allergy/AdvReac Type Severity Reaction Status Date / Time escitalopram [From Lexapro] Allergy Verified 04/04/22 08:21 Home Medication Medication Instructions Recorded lamotrigine 100 mg tablet 150 mg PO DAILY 11/18/21 blue-green algae (bulk) (Spirulina 1 pwd miscellaneous DAILY 11/20/21 powder) buspirone 5 mg tablet 5 mg PO DAILY PRN 11/29/21 ondansetron HCl 4 mg tablet 4 mg PO Q6H PRN nausea and 03/25/22 vomiting #10 tabs hydromorphone 2 mg tablet 2 mg PO Q6H PRN pain #20 tabs 04/03/22 sulfamethoxazole 800 1 tab PO BID #14 tabs 04/04/22 mg-trimethoprim 160 mg tablet (Bactrim DS) Current Visit Medications: Current Medications Generic Name Dose Route Start Last Admin Trade Name Freq PRN Reason Stop Dose Admin Sodium Chloride 500 mls @ 0 mls/hr 04/19/22 23:25 Saline 500ml Bag IV PRN PRN As Directed IV Miscellaneous Supplies 1 each 04/19/22 23:30 Iv Access IV DIRECTED MARIA ELENA Sodium Chloride 0 ml 04/19/22 23:25 Normal Saline Flush 10 Ml Syr IVP PRN PRN PFSH Active Problems Active Problems: Problem Status Onset Code Vaginal hemorrhage N93.9 Encounter for postoperative wound check Z48.89 Vaginal odor N89.8 Screen for STD (sexually transmitted disease) Z11.3 Dysuria R30.0 S/P laparoscopic assisted vaginal hysterectomy (LAVH) Z90.710 Migraine headache without aura G43.009 Pelvic pain R10.2 Left-sided back pain M54.9 History of dysmenorrhea Z87.42 Pre-op exam Z01.818 Nausea and vomiting R11.2 Medical History Medical History ADHD Anxiety state Ectopic Endometriosis History of depression Surgical wound infection Medical History Comments:: Pt reports tics. Pt reports involuntary muscle spasms in face and hands. this is triggered by anxiety Surgical History Surgical History History of appendectomy History of laparoscopy 2013. For endometriosis. History of tonsillectomy Hx of section 2019, Arrest disorder [place], [place] Hx of tubal ligation Tobacco Smoking/Tobacco Use Status: Never Alcohol Alcohol Intake: current Alcohol intake frequency: holidays/special occasions only Alcohol type: wine Substance Use Substance use: Never Substance use type: does not use Prental History History 5 Para 3 Hx # Term Pregnancies 3 Multiple births Hx # Pregnancies Ectopic pregnancies 1 AB induced 1 Hx Number of Living Children 3 AB spontaneous Vital Signs and Lab Results Lab Results Result Diagrams: 04/19/22 23:24 04/19/22 23:25 Blood Type / Crossmatch: Patient ABO/Rh A Positive 03/24/22 Antibody Screen NEGATIVE 03/24/22 Crossmatch See Detail 04/19/22 Complete Blood Count: White Blood Count 11.13 10^3/uL (4.4-10.8) H 04/19/22 23:24 Red Blood Count 3.94 10^6/uL (3.93-5.22) 04/19/22 23:24 Hemoglobin 11.5 g/dL (11.2-15.7) 04/19/22 23:24 Hematocrit 34.3 % (36.0-46.0) L 04/19/22 23:24 Platelet Count 356 10^3/uL (130-400) 04/19/22 23:24 Complete Metabolic Panel: Sodium 138 mmol/L (136-145) 03/24/22 15:17 Potassium 4.0 mmol/L (3.5-5.1) 03/24/22 15:17 Chloride 103 mmol/L (98-107) 03/24/22 15:17 Carbon Dioxide 23.9 mmol/L (21.0-32.0) 03/24/22 15:17 BUN 15 mg/dL (7-18) 03/24/22 15:17 Creatinine 0.8 mg/dL (0.55-1.02) 03/24/22 15:17 Est GFR (CKD-EPI 2020) 96.66 (mL/min/1.73m2) 03/24/22 15:17 Calcium 8.8 mg/dL (8.5-10.1) 03/24/22 15:17 Glucose 102 mg/dL (74-106) 03/24/22 15:17 Liver Function Panel: No Data to Display Coagulation Panel: INR International Normalized Ratio Pending 04/19/22 23:2 5 Prothrombin Time Pending 04/19/22 23:25 Activated Partial Thromboplast Time Pending 04/19/22 23: 25 Cardiac Panel: No Data to Display Arterial Blood Gas: No Data to Display Venous Blood Gas: No Data to Display Pancreas Panel: No Data to Display Thyroid Panel: No Data to Display Infectious Disease: Coronavirus (COVID-19)(PCR) Negative (Negative) 03/26/22 07:42 Coronavirus 2019 Source Nasal/Nares 03/26/22 07:42 Blood Cultures: No Data to Display Toxicology Panel: No Data to Display Panel: No Data to Display Anesthesia Assessment and Plan Anesthesia History Personal History: No History of Anesthesia Complications Family History: No Family History of Anesthesia Complications Exercise Tolerance Exercise Tolerance: Metabolic Equivalents>4 Cardiac & Pulmonary Exam Cardiac Exam: Unable to Assess Pulmonary Exam: Unable to Assess Implantable Cardiac Device Does patient have a Pacemaker or an ICD?: No Airway Exam Known Difficult Airway: No Mallampati Class: 2 Mouth Opening: Normal (> 3cm) Thyromental Distance: Greater than 3 cm Neck Range of Motion: Full ROM Neck Circumference: Normal Teeth Condition: Normal Dentition ASA Classification ASA Score: ASA 2 Emergency Case?: Yes NPO Status NPO Status: Full Stomach Status Status: History of Hysterectomy Anesthesia Plan Resuscitation Status: Full Code Anesthesia Technique: General Anesthesia Airway Planned: Endotracheal Tube Monitors Used: Standard Monitors Preoperative Comments:: 36 yo female for post surgical bleed. had hysterectomy on 03/26. no change in health history. Previous Anes: Mac 3 grade 1, easy mask. ray 2 grade 2 a.
[2022-04-20] MEDS: Piperacillin/Tazobactam 4.5 GM VIAL (00:20)
[2022-04-20 00:24] LABS: INR 0.9 (0.9-1.1); PTT Activated 18.3 sec (21.0-27.5); Prothrombin Time 9.2 sec (9.3-11.0)
[2022-04-20] MEDS: Lactated Ringers 1,000 ML 30 ML IV (00:27)
--- NOTE | 2022-04-20 01:17 | W.PM.OP ---
Date of service: 04/20/22 Time of Service: 01:17 Operative Note Operative Note DATE OF PROCEDURE: 04/20/22 PRE-OP DIAGNOSIS: Vaginal bleeding, vaginal cuff dehiscence PROCEDURE: Exam under anesthesia closure of vaginal cuff SURGEON: Cathleen Guthrie PROJECT PROGRAM MANAGER: Gifty Yuen Refer to Anesthesia Record ESTIMATED BLOOD LOSS: 250 PATHOLOGY: none sent COMPLICATIONS: None Patient was transported to: PACU Patient's condition: stable Indications: 36-year-old 5 para 1-0-2-3 female who presented to [facility] emergency department via ambulance after an episode of consensual vaginal intercourse during which there was a gush of bright red blood.? The bleeding did not stop and saturated with close and towels. She underwent a LAVH on 03/26/22 for benign indications.? Her initial postop visit was 04/03/2022. 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 Findings: No evidence of a vaginal laceration the vaginal cuff had partially dehisced along its length. At the most cephalad position on the left side of vaginal cuff there was a small artery that was actively bleeding. The cuff was probed and there was no defect into the abdominal cavity. There is no evidence of mass in the posterior cul-de-sac. No evidence of ecchymosis or cellulitis. Procedure Description: Patient was brought to the operating room where she is placed in the dorsal supine position and general endotracheal anesthesia was administered without difficulty. She was then placed in the dorsolithotomy position [facility] with SCDs in place. Patient have received preoperative antibiotics in the emergency department. The perineum was prepped and she was sterilely draped and a Webb catheter was placed to gravity drainage. 2 hand-held vaginal retractors were used to achieve visualization of the vaginal cuff with above-noted findings. A ring forcep was used to grasp the vaginal cuff with the reading vessel and a [id number] suture of 0 Vicryl was used to reapproximate edge May edges of the vaginal cuff and achieve hemostasis. Another 0 Vicryl suture was used in a running locked fashion to re-approximate the edges of the vaginal cuff cephalad to caudally. At the completion of the repair site was hemostatic. All instruments were removed from the vagina she was then placed in the dorsal supine position, awakened, extubated and transported to recovery area in stable condition all sponge lap and needle counts correct x2
[2022-04-20] MEDS: HYDROmorphone 2 MG/ML SYR IVP ×3 (01:40→01:58)
[2022-04-20] MEDS: Ketorolac 30 MG/ML VIAL IVP ×2 (01:55→07:40)
[2022-04-20] MEDS: ePHEDrine 50 MG/ML VIAL 25 MG IM (02:11)
--- NOTE | 2022-04-20 02:34 | W.ANESPOSTOP ---
Postoperative Evaluation Date, Time and Location Date Performed: 04/20/22 Time Performed: 02:35 Patient Location: PACU Vital Signs Most Recent Imported Vital Signs: Most Recent Vital Signs Temp Pulse Resp BP Pulse Ox 36.1 C L 95 H 16 106/44 L 99 04/20/22 02:22 04/20/22 02:22 04/20/22 02:22 04/20/22 02:22 04/20/22 02:22 Pain Score Most Recent Pain Score: Most Recent Pain Score Pain Level 6 04/20/22 02:22 Assessment Mental Status: Awake (Alert & Oriented to Patient Baseline) Airway and Respiratory Function: Patent airway with normal (patient baseline) respiratory exam Cardiovascular Function: Hemodynamically Stable Hydration Status: Adequately Hydrated Nausea & Vomiting: No Nausea or Vomiting Pain: Pain is tolerable per patient Peripheral Nerve Block: Patient did not receive a nerve block
[2022-04-20] MEDS: Lactated Ringers 1,000 ML 150 ML IV (02:40)
[2022-04-20] MEDS: MORPHine 4 MG/ML SYR IVP ×3 (02:45→06:15)
[2022-04-20] MEDS: oxyCODONE 5 mg/Acetaminophen 325 mg TAB PO ×2 (03:37→09:12)
[2022-04-20 04:15] LABS: Source Nasal/Nares
[2022-04-20 04:53] LABS: COVID-19 PCR Negative (Negative)
[2022-04-20 06:19] LABS: HGB 8.7 g/dL (11.2-15.7); MCH 29.3 pg (27.0-33.0); MCHC 33.5 % (32.0-36.0); MCV 88 fL (80-95); MPV 9.3 fL (8.0-11.0); Platelet Count 276 10^3/uL (130-400); RBC 2.97 10^6/uL (3.93-5.22); RDW 13.1 % (11.7-14.6); RDW-SD 41.8 fL; WBC 16.77 10^3/uL (4.4-10.8)
--- NOTE | 2022-04-20 08:56 | W.PM.DSUDISC ---
Date of service: 04/20/22 Time of Service: 08:56 Discharge Plan Disposition Patient Disposition: Home Condition: Improving Discharge Details Reason For Visit: Vaginal Cuff Dehiscence Admit Date/Time: 04/20/22 01:11 Admit Provider: Cathleen Guthrie Attending Provider: Cathleen Guthrie Primary Care Provider: Edi Izaguirre Hospital Course Hospital Course: Patient was admitted to the [facility] emergency department via ambulance after acute copious vaginal bleeding during consensual sexual relations. She underwent exam under anesthesi and repair of a superficial dehiscence of the vaginal cuff. The abdominal cavity was not breached. On the uppermost right vaginal cuff a small arterial vessel was bleeding it was quickly sutured and the bleeding subsided. The cuff was reapproximated with 0 Vicryl sutures and the patient was discharged home later on the morning of admission. Discharge hemoglobin: 8.7. She was able to ambulate void spontaneously and had no complaints of dizziness, vertigo or vaginal bleeding. She was given a prescription for Dilaudid 2 mg every 4-6 hours for pain [facility] she was given instructions not to engage in sexual relations for 3 months. Home Meds and New Rx's Prescriptions: No Action buspirone 5 mg tablet 5 mg PO DAILY PRN Label Comments: Pt states no longer using.HE ondansetron HCl 4 mg tablet 4 mg PO Q6H PRN (Reason: nausea and vomiting) Qty: 10 0RF hydromorphone 2 mg tablet 2 mg PO Q6H MDD 4 PRN (Reason: pain) Qty: 20 0RF sulfamethoxazole-trimethoprim [Bactrim DS] 800-160 mg tablet 1 tab PO BID Qty: 14 0RF lamotrigine 100 mg tablet 150 mg PO DAILY Spirulina Powder 1 pwd MISCELLANEOUS DAILY Discharge Instructions Stand Alone Forms: DSU Post BEREAVEMENT PROGRAM COORDINATOR Surgery Activity:: Nothing in the vagina for Equipment/Supplies:: No Equipment Needed Diet:: As Tolerated Discharge Orders Discharge Orders: Discharge Order (Routine); Ordered 04/20/22 Ordered By: Cathleen Guthrie DS: Diagnosis Discharge Diagnosis (1) Vaginal hemorrhage: Status: Acute (2) S/P laparoscopic assisted vaginal hysterectomy (LAVH): Status: Acute (3) History of repair of dehiscence of vaginal cuff: Status: Acute Asessment and Plan: performed in OR under anesthesia.
[2022-04-20] MEDS: Docusate Sodium 100 MG CAP PO (09:12)
[2022-04-20] MEDS: lamoTRIgine 100 MG TAB 150 MG PO (09:12)
== END 2022-04-20 10:00 | disposition home or self-care (01) ==
LOC: ER 04-20 00:24 → DSU 04-20 00:32 → ER 04-20 00:33 → OBS 04-20 02:40
PROVIDERS: Admitting Provider Obstetrics & Gynecology Gynecology; Emergency Provider Emergency Medicine; PCP Family Medicine; Visit Provider Obstetrics & Gynecology Gynecology
PROC: 0UQG7ZZ Repair Vagina, Via Natural or Artificial Opening (ICD-10-PCS; CPT 57260; principal; 2022-04-20 00:25)
DX: T81.32XA Disruption of internal operation (surgical) wound, not elsewhere classified, initial encounter (principal); Z20.822 Contact with and (suspected) exposure to COVID-19; Z90.710 Acquired absence of both cervix and uterus; G43.009 Migraine without aura, not intractable, without status migrainosus; F90.9 Attention-deficit hyperactivity disorder, unspecified type; Z79.899 Other long term (current) drug therapy
CPT/HCPCS: 57200; 36415; 80053; 85027; 86850; 86900; 86901; 86920; 87635; 96361; 96374; 96375; 99285; 85025; 85610; 85730; 99284; J0131; J1100; J1170; J1885; J2250; J2270; J2405; J2543; J2704; J3010; P9016

== ENCOUNTER 2022-04-29 16:19 | Emergency (ER) | payer MEDICAID, SELFPAY ==
[2022-04-29] VITALS (75 sets, daily range): BP systolic 94–133; BP diastolic 45–75; PULSE 66–97; RESP 10–25; TEMP 37–37.5; O2SAT 97–100
--- NOTE | 2022-04-29 16:15 | RT.EKG_ITS ---
APPROVED REPORT Exam: Resting ECG Reason for Exam: DIZZY WEAKNESS Patient Location: E HR:87 bpm ECG Measurements Heart Rate 87 AXIS GA 148 P 66 QRSd 85 QRS 5 QT 364 T 17 QTc 439 Conclusion Sinus rhythm...normal P axis, V-rate 60- 99
--- NOTE | 2022-04-29 17:00 | DI.CT_ITS ---
Exam(s) CT ABDOMEN PELVIS W EXAM: CT ABDOMEN PELVIS W CLINICAL HISTORY: abdominal pain, recent hysterectomy and dehiscence TECHNIQUE: Imaging Protocol: Axial computed tomography images with coronal and sagittal reformatted images were created and reviewed CONTRAST MATERIAL: Intravenous: Omnipaque 350 Contrast volume:75 mL Oral: No COMPARISON: CT CT ABDOMEN PELVIS W from 02/07/2022 FINDINGS: ABDOMEN: Lung Bases: Normal where visualized. Liver: Normal density. There are few tiny density seen in the liver. They are too small for further characterization but likely reflect small cysts. Portal, Superior Mesenteric, and Splenic Veins: Unremarkable. Gallbladder and Biliary Tract: No radiodense calculus or dilation. Pancreas: Normal density, no abnormal calcifications or inflammatory process. Spleen: Normal. Adrenals: No masses seen. Kidneys: Normal size, contour and axis. No radiodense stones or obstructive uropathy. No masses seen. Abdominal Aorta: Abdominal portion non-dilated. Minimal atherosclerosis. Bowel: No obstruction or bowel wall thickening. No evidence of appendicitis. Peritoneal Cavity: No ascites, collection or mesenteric inflammatory response. No free air. Lymph Nodes: Within normal limits. Bones: Within normal limits for the patient's age. Soft Tissues: Unremarkable. PELVIS: Bladder: Symmetric distention, no gross wall thickening. Reproductive Organs: Status post hysterectomy. Lymph Nodes: Within normal limits. Bones: Within normal limits for the patient's age. IMPRESSION: No acute abdominal or pelvic process. RADIATION DOSE DELIVERED: 1,064.7mGy.cm Total DLP DATA REPOSITORY: All CT scans at this facility are submitted to the National Radiology Data Registry (NRDR) Dose Index Registry (DIR) with the [employer] (ACR). RADIATION OPTIMIZATION: All CT scans at this facility use at least one of these dose optimization te chniques: automated exposure control; mA and/or kV adjustment per patient size (includes targeted exa ms where dose is matched to clinical indication); or iterative reconstruction.
[2022-04-29 17:01] LABS: Abs Immature Grans 0.04 10^3/uL (0.0-0.06); Absolute Basophil Count 0.05 10^3/uL (0.0-0.2); Absolute Eosinophil Count 0.14 10^3/uL (0.0-0.7); Absolute Lymphocyte Count 2.48 10^3/uL (1.2-3.4); Absolute Monocyte Count 0.66 10^3/uL (0.1-0.8); Absolute Neutrophil Count 5.96 10^3/uL (1.2-6.7); Basophils % 0.5; Eosinophils % 1.5; HGB 8.7 g/dL (11.2-15.7); Immature Grans % 0.4; Lymphocytes % 26.6; MCHC 32.2 % (32.0-36.0); MCV 90 fL (80-95); MPV 8.9 fL (8.0-11.0); Monocytes % 7.1; Neutrophils % 63.9; Platelet Count 424 10^3/uL (130-400); RDW 13.6 % (11.7-14.6); RDW-SD 44.8 fL; WBC 9.33 10^3/uL (4.4-10.8)
[2022-04-29 17:19] LABS: ALT 16 U/L (14-59); AST 18 U/L (15-37); Albumin 3.8 g/dL (3.4-5.0); Alkaline Phosphatase 59 U/L (46-116); Anion Gap 7.2 mmol/L (3-11); BUN 12 mg/dL (7-18); Bilirubin, Total 0.2 mg/dL (0.2-1.0); CO2 26.8 mmol/L (21.0-32.0); CREATININE 0.9 mg/dL (0.55-1.02); Calcium 8.9 mg/dL (8.5-10.1); Chloride 105 mmol/L (98-107); Estimated GFR 83.92 (mL/min/1.73m2); Glucose 99 mg/dL (74-106); Magnesium 2.1 mg/dL (1.8-2.4); Potassium 3.9 mmol/L (3.5-5.1); Sodium 139 mmol/L (136-145); TSH (W/Ref FT4) 1.14 uIU/mL (0.36-3.74); Total Protein 7.1 g/dL (6.4-8.2); Troponin I < 50 ng/L (<or=60)
[2022-04-29] MEDS: LORazepam 2 MG/ML VIAL 1 MG IVP (17:22)
[2022-04-29] MEDS: Omnipaque 350 MG/ML 500 ML BTL-Imaging package IJ (17:37)
[2022-04-29] MEDS: Normal Saline - Diluent 50 ML VIAL IJ (17:38)
--- NOTE | 2022-04-29 17:55 | ED.GENADUL_ITS ---
Discharge Plan Discharge Details Chief Complaint: Dizzy/Sync Primary Care Provider: Edi Izaguirre ED Provider: Lars Louise Home Meds and New Rx's Prescriptions: Continued buspirone 5 mg tablet 5 mg PO DAILY PRN Label Comments: Pt states no longer using.HE ondansetron HCl 4 mg tablet 4 mg PO Q6H PRN (Reason: nausea and vomiting) Qty: 10 0RF iron 18 mg tablet 36 mg PO DAILY hydromorphone 2 mg tablet 2 mg PO Q6H MDD 4 PRN (Reason: pain) Qty: 20 0RF lamotrigine 100 mg tablet 150 mg PO DAILY Discharge Instructions Instructions: Anemia (ED), Anxiety (ED) Additional Instructions: Please contact your portfolio consultant and primary care physician to arrange follow- up. Call tomorrow. Return to the ER immediately for any worsening or new concerning symptoms. Referrals: [facility] [Provider Group] Edi Izaguirre MD [Primary Care Provider] - Medical Decision Making 1800 -- 36yo female here 10 days status post vaginal cuff dehiscence with hemorrhage requiring operative repair with generalized weakness, fatigue and dizziness. She was lightheaded today when she went back to work. Patient is saturating well in no respiratory distress. She has no chest pain. She is hemodynamically stable. She is quite anxious. She has tenderness in her left lower abdomen with no peritoneal findings. EKG was reviewed and interpreted by me: Sinus rhythm 87 bpm, normal axis, nondiagnostic. Will obtain CT of the abdomen pelvis to assess for acute surgical process including infection versus postoperative bleeding. Labs reviewed and patient has persistent anemia, no significant improvement from prior during hospitalization. I suspect that anemia is etiology for symptoms and presentation today. Regarding her anxiety, she was given Ativan 1 mg IV. She was reassessed and symptoms resolved. -- CT of the abdomen pelvis was interpreted by radiology: IMPRESSION: No acute abdominal or pelvic abnormality. 1999 --patient having some nausea pretransfusion. I will give Zofran 4 mg IV. I spoke with gynecology on-call, Dr. Parrish, discussed ED presentation course, she agrees with treatment plan and recommends close outpatient follow-up. Lab Data Lab results reviewed: Yes I reviewed the patient's lab results. Labs: Laboratory Tests Range/Units 04/29/22 04/29/22 04/29/22 16:30 16:30 16:30 WBC (4.4-10.8) 10^3/uL 9.33 RBC (3.93-5.22) 10^6/uL 3.00 L Hgb (11.2-15.7) g/dL 8.7 L Hct (36.0-46.0) % 27.0 L MCV (80-95) fL 90 MCH (27.0-33.0) pg 29.0 MCHC (32.0-36.0) % 32.2 RDW (11.7-14.6) % 13.6 Plt Count (130-400) 10^3/uL 424 H MPV (8.0-11.0) fL 8.9 Immature Gran % 0.4 Neutrophils % 63.9 Lymphocytes % 26.6 Monocytes % 7.1 Eosinophils % 1.5 Basophils % 0.5 Nucleated RBC % (0.0-0.3) % 0.0 Absolute Neutrophils (1.2-6.7) 10^3/uL 5.96 Absolute Lymphocytes (1.2-3.4) 10^3/uL 2.48 Absolute Monocytes (0.1-0.8) 10^3/uL 0.66 Absolute Eosinophils (0.0-0.7) 10^3/uL 0.14 Absolute Basophils (0.0-0.2) 10^3/uL 0.05 Sodium (136-145) mmol/L 139 Potassium (3.5-5.1) mmol/L 3.9 Chloride (98-107) mmol/L 105 Carbon Dioxide (21.0-32.0) mmol/L 26.8 Anion Gap (3-11) mmol/L 7.2 BUN (7-18) mg/dL 12 Creatinine (0.55-1.02) mg/dL 0.9 Est GFR (CKD-EPI 2020) (mL/min/1.73m2) 83.92 Glucose (74-106) mg/dL 99 Calcium (8.5-10.1) mg/dL 8.9 Magnesium (1.8-2.4) mg/dL 2.1 Total Bilirubin (0.2-1.0) mg/dL 0.2 AST (15-37) U/L 18 ALT (14-59) U/L 16 Alkaline Phosphatase (46-116) U/L 59 Troponin I (<or=60) ng/L < 50 Total Protein (6.4-8.2) g/dL 7.1 Albumin (3.4-5.0) g/dL 3.8 TSH (0.36-3.74) uIU/mL 1.14 Patient ABO/Rh A Positive Antibody Screen NEGATIVE Crossmatch See Detail HPI General Mode of arrival: ambulatory . Date/Time Provider Initiated Documentation: 04/29/22 16:25 . Limitations to Documentation: no limitations . Information obtained by: patient . HPI Narrative: 36-year-old female with history of ectopic status post hysterectomy end of March, complicated by vaginal cuff dehiscence and hemorrhage on 04/19/2022 that required operative repair, returns today generally not feeling well. Patient states she feels extremely weak, dizzy and lightheaded. She states since discharge 10 days ago she has had persistent weakness. She stayed at home and has been resting. Today she went to work and felt lightheaded like she was going to pass out. Symptoms are worse with exertion. She is quite anxious and notes severe anxiety at this time. Patient is worried she is going to have recurrent hemorrhage. She does have some lower abdominal discomfort worse in her left lower abdomen. Related Data Home Medications Medication Instructions Recorded Confirmed lamotrigine 100 mg tablet 150 mg PO DAILY 11/18/21 04/29/22 buspirone 5 mg tablet 5 mg PO DAILY PRN 11/29/21 04/29/22 ondansetron HCl 4 mg tablet 4 mg PO Q6H PRN nausea and 03/25/22 04/29/22 vomiting #10 tabs iron 18 mg tablet 36 mg PO DAILY 04/21/22 04/29/22 hydromorphone 2 mg tablet 2 mg PO Q6H PRN pain #20 tabs 04/23/22 04/29/22 Previous Rx's Medication Instructions Recorded ondansetron HCl 4 mg tablet 4 mg PO Q6H PRN nausea and 03/25/22 vomiting #10 tabs hydromorphone 2 mg tablet 2 mg PO Q6H PRN pain #20 tabs 04/23/22 Allergies Allergy/AdvReac Type Severity Reaction Status Date / Time escitalopram [From Lexapro] Allergy Verified 04/29/22 16:28 General Stated Complaint: Dizzy/Sync ANGEL: 3 Review of Systems All systems reviewed & are unremarkable except as noted in HPI and below Constitutional Constitutional: Denies fever(s) Cardiovascular Cardiovascular: Denies chest pain and Denies dyspnea Respiratory Respiratory: Denies dyspnea Gastrointestinal Gastrointestinal: Reports abdominal pain Genitourinary Genitourinary: Denies vaginal discharge PFSH All Active Problems History of repair of dehiscence of vaginal cuff (Acute) Vaginal hemorrhage (Acute) Encounter for postoperative wound check (Acute) Vaginal odor (Acute) Screen for STD (sexually transmitted disease) (Acute) Dysuria (Acute) Migraine headache without aura (Acute) Pelvic pain (Acute) Left-sided back pain (Acute) History of dysmenorrhea (Acute) Pre-op exam (Acute) Nausea and vomiting (Acute) Medical History ADHD Anxiety state Ectopic Endometriosis History of depression Surgical wound infection Surgical History History of appendectomy History of laparoscopy 2012. For endometriosis. 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 Female Reproductive History Menstrual control method: pills and permanent sterilization History History 5 Para 3 Hx # Term Pregnancies 3 Multiple births Hx # Pregnancies Ectopic pregnancies 1 AB induced 1 Hx Number of Living Children 3 AB spontaneous Exam Const General: cooperative HENMT Mouth: moist mucous membranes Eyes Conjunctivae: normal conjunctivae Sclera: normal sclerae Neck Neck: trachea midline and supple Resp Effort & Inspection: normal respiratory effort and able to speak in complete sentences Auscultation: clear to auscultation bilaterally, no rales, no rhonchi and no wheezes Cardio Rate: regular rate and not tachycardic Rhythm: regular rhythm Heart Sounds: no gallops, no murmurs and no rubs GI Palpation: soft, not firm, no guarding, no masses and not rigid Skin General skin exam: no rashes or lesions noted Neuro General: patient alert, patient awake and tone normal Cognition: normal cognition Speech: speech normal Extrem General: no calf tenderness and no edema Psych Appearance: grossly normal Mental Status: mental status grossly normal Speech and Movement: speech and movement normal Mood: anxious mood Affect: anxious affect Course Vital Signs Vital signs: Vital Signs Temperature 37.5 C 04/29/22 16:23 Pulse 97 H 04/29/22 16:23 Respiratory Rate 15 04/29/22 16:23 Blood Pressure 133/69 04/29/22 16:23 Pulse Oximetry 100 04/29/22 16:23 Temperature 37.5 C 04/29/22 16:23 Temperature Source Skin 04/29/22 16:23 Pulse 97 H 04/29/22 16:23 Pulse 79 04/29/22 17:20 Respiratory Rate 20 04/29/22 17:20 Respiratory Effort Non-Labored 04/29/22 16:36 Respiratory Depth Normal 04/29/22 16:36 Respiratory Pattern Normal 04/29/22 16:36 Blood Pressure 133/69 04/29/22 16:23 Blood Pressure Position Sitting 04/29/22 16:23 Pulse Oximetry 100 04/29/22 17:20 Oxygen Delivery Method Room Air 04/29/22 16:23 Oxygen Flow Rate 0 04/29/22 16:23 Pain Level 7 04/29/22 16:23 Lab/Test Results Lab/Test Results: Laboratory Tests Range/Units 04/29/22 04/29/22 04/29/22 16:30 16:30 16:30 WBC (4.4-10.8) 10^3/uL 9.33 RBC (3.93-5.22) 10^6/uL 3.00 L Hgb (11.2-15.7) g/dL 8.7 L Hct (36.0-46.0) % 27.0 L MCV (80-95) fL 90 MCH (27.0-33.0) pg 29.0 MCHC (32.0-36.0) % 32.2 RDW (11.7-14.6) % 13.6 Plt Count (130-400) 10^3/uL 424 H MPV (8.0-11.0) fL 8.9 Immature Gran % 0.4 Neutrophils % 63.9 Lymphocytes % 26.6 Monocytes % 7.1 Eosinophils % 1.5 Basophils % 0.5 Nucleated RBC % (0.0-0.3) % 0.0 Absolute Neutrophils (1.2-6.7) 10^3/uL 5.96 Absolute Lymphocytes (1.2-3.4) 10^3/uL 2.48 Absolute Monocytes (0.1-0.8) 10^3/uL 0.66 Absolute Eosinophils (0.0-0.7) 10^3/uL 0.14 Absolute Basophils (0.0-0.2) 10^3/uL 0.05 Sodium (136-145) mmol/L 139 Potassium (3.5-5.1) mmol/L 3.9 Chloride (98-107) mmol/L 105 Carbon Dioxide (21.0-32.0) mmol/L 26.8 Anion Gap (3-11) mmol/L 7.2 BUN (7-18) mg/dL 12 Creatinine (0.55-1.02) mg/dL 0.9 Est GFR (CKD-EPI 2020) (mL/min/1.73m2) 83.92 Glucose (74-106) mg/dL 99 Calcium (8.5-10.1) mg/dL 8.9 Magnesium (1.8-2.4) mg/dL 2.1 Total Bilirubin (0.2-1.0) mg/dL 0.2 AST (15-37) U/L 18 ALT (14-59) U/L 16 Alkaline Phosphatase (46-116) U/L 59 Troponin I (<or=60) ng/L < 50 Total Protein (6.4-8.2) g/dL 7.1 Albumin (3.4-5.0) g/dL 3.8 TSH (0.36-3.74) uIU/mL 1.14 Patient ABO/Rh A Positive Antibody Screen NEGATIVE PAWSS Have you Been Recently Intoxicated or Drunk Within the Last 30 days?: No Have you Ever Experienced Previous Episodes of Alcohol Withdrawal?: No Have you ever Experienced Withdrawal Seizures?: No Have you ever Experienced Delirium Tremens(DT)s?: No Have you ever undergone Alcohol Rehabilitation Treatment (i.e, inpt ot outpatient treatment programs)?: No Have you ever Experienced Blackouts?: No Have you ever Combined Alcohol with other Downers within the last 90 days?: No Have you ever Combined Alcohol with any other Substance of Abuse during the last 90 days?: No Positive Blood Alcohol level on Presentation? [PCS.BAL]: No Evidence of Increased Autonomic Activity (i.e. HR>120, tremor, sweating, agitation, nausea)?: No Result: 0
--- NOTE | 2022-04-29 18:24 | DI.VRAD_ITS ---
PROCEDURE INFORMATION: Exam: CT Abdomen And Pelvis With Contrast Exam date and time: 04/29/2022 5:33 PM Age: 36 years old Clinical indication: Other: Abdominal pain; Prior surgery; Surgery date: 1-6 months; Patient HX: Recent hysterectomy and dehiscence TECHNIQUE: Imaging protocol: Computed tomography of the abdomen and pelvis with contrast. Contrast material: OMNIPAQUE 350; Contrast volume: 75 ml; Contrast route: INTRAVENOUS (IV); COMPARISON: CT ABDOMEN PELVIS W 02/07/2022 11:27 AM FINDINGS: Liver: Normal. Gallbladder and bile ducts: Normal. Pancreas: Normal. Spleen: Normal. Adrenal glands: Normal. No mass. Kidneys and ureters: Normal. Stomach and bowel: Normal. Appendix: No evidence of appendicitis. Intraperitoneal space: Unremarkable. No free air. No significant fluid collection. Vasculature: Phleboliths within the pelvis. Lymph nodes: Few small lymph nodes within the right lower quadrant, likely reactive, but nonspecific. Urinary bladder: Unremarkable as visualized. Reproductive: Uterus surgically absent. 2.3 cm left ovarian cyst. Bones/joints: No acute abnormality. Soft tissues: Normal. IMPRESSION: No acute abdominal or pelvic abnormality. Dictated and Authenticated by: Edwin Fraire MD. Ordering:SHELLEY Sousa MD
[2022-04-29] MEDS: Ondansetron 4 MG/2 ML VIAL (20:10)
[2022-04-29] MEDS: HYDROmorphone 2 MG/ML SYR 0.5 MG IVP (21:39)
--- NOTE | 2022-04-30 00:38 | NUR.NOTE ---
Referral faxed to [facility] to f/u within a week for post op anemia, case discussed with Dr Parrish.Nursing Note:
--- NOTE | 2022-05-03 08:14 | W.ED.GENAD ---
Discharge Plan Disposition Patient Disposition: Home Condition: Improving Discharge Details Clinical Impression: Anemia Primary Care Provider: Edi Izaguirre ED Provider: Greyson Arora Home Meds and New Rx's Prescriptions: Continued buspirone 5 mg tablet 5 mg PO DAILY PRN Label Comments: Pt states no longer using.HE ondansetron HCl 4 mg tablet 4 mg PO Q6H PRN (Reason: nausea and vomiting) Qty: 10 0RF iron 18 mg tablet 36 mg PO DAILY lamotrigine 100 mg tablet 150 mg PO DAILY Discharge Instructions Instructions: Anemia (ED) Additional Instructions: Please contact your glass technician/installer and primary care physician to arrange follow-up. Call tomorrow. Return to the ER immediately for any worsening or new concerning symptoms. Ref[place] [facility] Edi Izaguirre MD [Primary Care Provider] - Discharge Data Discharge Date/Time-TO BE ENTERED AT DEPARTURE: 04/29/22 22:56 Medical Decision Making Patient is a pleasant 36-year-old female presenting today with chief complaint of recurrent vaginal bleeding. Patient was initially seen here on 04/19/2022 with hemorrhage in the setting of a 3-week status post vaginal hysterectomy. Initially, this was after having intercourse. Patient denies any intercourse yesterday or today. Patient was transfused and went to the operating room for definitive management. Surgical repair showed superficial dehiscence of the vaginal cuff. There was a arterial bleeder noted in the upper right vaginal cuff. Patient then presented once again to the emergency department on 04/29/2022. At that time, she is not presenting for bleeding but rather for weakness, fatigue and dizziness. CT of her abdomen was obtained as the patient was endorsing some left lower quadrant pain. Patient reports that today she began noticing some bleeding while in the shower. She denies any lightheadedness, dizziness. She has not had any intercourse or any objects placed intravaginally recently. He continues to have some of the left lower quadrant pain which patient reports has been continuous since her ectopic which initially led to the hysterectomy. She denies any easy bruising, bleeding elsewhere. No change in bowel or bladder habits. Denies any new or acute change in the pain. On exam, patient appears very anxious. She is hemodynamically stable. Blood pressure slightly elevated at times in the room with the patient with a systolic in the 140s. Patient is requesting an anxiety lytic and we will give her IV Ativan. She does have some mild tenderness in the left lower quadrant but no peritoneal findings. We will no intravaginal exam was done, I do see a small amount of blood externally but no evidence of active exsanguination or significant hemorrhage. Will consult with EQUIPMENT OPERATOR/LABORER, repeat labs. constuled with Dr. Garcia. She advised that this is likely associated with scab that came off of the surgical site. She advised that we can monitor the patient. She expects that the bleeding will slow. Did not feel that CTA needed at this time. Advised that intravaginal exam not needed at this time. Discussed recommendations with the patient. Given anxiety level, she was given Ativan with good improvement of her symptoms. Have continued to reassess the patient, she has had no increased in bleeding, no hypotension. her tachycardia has improved. Reviewed labs, H&H are improving well. She has no abnormality noted on her PT/INR. Discussed findings with [facility] patient. She is feeling improved. N o increased in bleeding. She has been here for a few hours with no need for new menstrual pad. She feels ready for d/c to home. We discussed return precautions. She has appointment on Thursday with [facility]. Discussed avoiding intercourse or FB into vagina. Advised against any heavy lifting. All of her questions and concerns were addressed, she is in agreemetn with this plan. HPI General Mode of arrival: ambulatory. Date/Time Provider Initiated Documentation: 04/29/22 16:25. Limitations to Documentation: no limitations. Information obtained by: patient. History of Present Illness 36 year old F presents to the emergency department with the chief complaint of vaginal bleeding, described as moderate, with intensity rated at 6. Quality is described as aching, and is localized to the abdomen. Patient reports no radiation. Patient started experiencing this week(s) (pain has been constant for weeks, no acute change. Bleeding began 15 minutes prior to arrival) and it has been constant. Related Data Home Medications Medication Instructions Recorded Confirmed lamotrigine 100 mg tablet 150 mg PO DAILY 11/18/21 05/06/22 buspirone 5 mg tablet 5 mg PO DAILY PRN 11/29/21 05/06/22 ondansetron HCl 4 mg tablet 4 mg PO Q6H PRN nausea and 03/25/22 05/06/22 vomiting #10 tabs iron 18 mg tablet 36 mg PO DAILY 04/21/22 05/06/22 Previous Rx's Medication Instructions Recorded ondansetron HCl 4 mg tablet 4 mg PO Q6H PRN nausea and 03/25/22 vomiting #10 tabs Allergies Allergy/AdvReac Type Severity Reaction Status Date / Time escitalopram [From Lexapro] Allergy Verified 05/06/22 14:50 General Stated Complaint: Dizzy/Sync ANGEL: 2 Review of Systems Constitutional Constitutional: Reports as per HPI, Denies chills and Denies fever(s) Cardiovascular Cardiovascular: Reports as per HPI, Denies chest pain and Denies dyspnea Respiratory Respiratory: Reports as per HPI, Denies cough and Denies dyspnea Gastrointestinal Gastrointestinal: Reports as per HPI Musculoskeletal Musculoskeletal: Reports as per HPI and Denies back pain Integumentary/Breasts Skin/Breast: Reports as per HPI and Denies rash Neurologic Neurologic: Reports as per HPI PFSH All Active Problems (Updated 05/06/22 @ 18:16 by Cathleen Guthrie MD) Anemia (Acute) Vaginal bleeding (Acute) Abdominal pain (Acute) History of repair of dehiscence of vaginal cuff (Acute) Vaginal hemorrhage (Acute) Encounter for postoperative wound check (Acute) Vaginal odor (Acute) Screen for STD (sexually transmitted disease) (Acute) Dysuria (Acute) Migraine headache without aura (Acute) Pelvic pain (Acute) Left-sided back pain (Acute) History of dysmenorrhea (Acute) Pre-op exam (Acute) Nausea and vomiting (Acute) Medical History ADHD Anxiety state Ectopic Endometriosis History of depression Surgical wound infection Surgical History History of appendectomy History of laparoscopy 2012. For endometriosis. 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 Female Reproductive History Menstrual control method: pills and permanent sterilization History History 5 Para 3 Hx # Term Pregnancies 3 Multiple births Hx # Pregnancies Ectopic pregnancies 1 AB induced 1 Hx Number of Living Children 3 AB spontaneous Exam Const General: cooperative, healthy appearing, comfortable, no acute distress, well developed and anxious Nutritional Appearance: average body habitus and well nourished Orientation: alert and awake HENMT Head: normal to inspection Mouth: moist mucous membranes Eyes General: appearance normal, both eyes and all related structures (no signficant conjunctival palor) Resp Effort & Inspection: normal respiratory effort, able to speak in complete sentences and no respiratory distress Auscultation: clear to auscultation bilaterally, no rales, no rhonchi and no wheezes Cardio Rate: regular rate Rhythm: regular rhythm Heart Sounds: S1 normal and S2 normal GI Inspection: normal to inspection, no abdominal wall ecchymosis and non-distended Palpation: soft, not firm, no guarding, not rigid and tender in the LLQ; with no rebound tenderness Percussion: normal to percussion External Female Exam: normal external appearance and urethral discharge (small amount of vaginal bleeding) Back/Spine/Pelvis Back: no CVA tenderness Skin General skin exam: no rashes or lesions noted Trauma: no lacerations or abrasions Neuro General: patient alert and patient awake Cognition: normal cognition Speech: speech normal Gait: normal gait Psych Appearance: grossly normal and well kempt Mental Status: mental status grossly normal Speech and Movement: speech and movement normal Course Vital Signs Vital signs: Vital Signs Temperature 37.5 C 04/29/22 16:23 Pulse 97 H 04/29/22 16:23 Respiratory Rate 15 04/29/22 16:23 Blood Pressure 133/69 04/29/22 16:23 Pulse Oximetry 100 04/29/22 16:23 Temperature 37 C 04/29/22 23:04 Temperature Source Temporal Artery Scan 04/29/22 22:31 Pulse 89 04/29/22 23:04 Pulse 87 04/29/22 22:30 Respiratory Rate 16 04/29/22 23:04 Respiratory Effort Non-Labored 04/29/22 16:36 Respiratory Depth Normal 04/29/22 16:36 Respiratory Pattern Normal 04/29/22 16:36 Blood Pressure 121/68 04/29/22 23:04 Blood Pressure Mean 79 04/29/22 22:21 Blood Pressure Position Sitting 04/29/22 16:23 Pulse Oximetry 98 04/29/22 23:04 Oxygen Delivery Method Room Air 04/29/22 20:22 Oxygen Flow Rate 0 04/29/22 20:22 Pain Level 2 04/29/22 23:04 Lab/Test Results Lab/Test Results: Laboratory Tests Range/Units 04/29/22 04/29/22 04/29/22 16:30 16:30 16:30 WBC (4.4-10.8) 10^3/uL 9.33 RBC (3.93-5.22) 10^6/uL 3.00 L Hgb (11.2-15.7) g/dL 8.7 L Hct (36.0-46.0) % 27.0 L MCV (80-95) fL 90 MCH (27.0-33.0) pg 29.0 MCHC (32.0-36.0) % 32.2 RDW (11.7-14.6) % 13.6 Plt Count (130-400) 10^3/uL 424 H MPV (8.0-11.0) fL 8.9 Immature Gran % 0.4 Neutrophils % 63.9 Lymphocytes % 26.6 Monocytes % 7.1 Eosinophils % 1.5 Basophils % 0.5 Nucleated RBC % (0.0-0.3) % 0.0 Absolute Neutrophils (1.2-6.7) 10^3/uL 5.96 Absolute Lymphocytes (1.2-3.4) 10^3/uL 2.48 Absolute Monocytes (0.1-0.8) 10^3/uL 0.66 Absolute Eosinophils (0.0-0.7) 10^3/uL 0.14 Absolute Basophils (0.0-0.2) 10^3/uL 0.05 Sodium (136-145) mmol/L 139 Potassium (3.5-5.1) mmol/L 3.9 Chloride (98-107) mmol/L 105 Carbon Dioxide (21.0-32.0) mmol/L 26.8 Anion Gap (3-11) mmol/L 7.2 BUN (7-18) mg/dL 12 Creatinine (0.55-1.02) mg/dL 0.9 Est GFR (CKD-EPI 2020) (mL/min/1.73m2) 83.92 Glucose (74-106) mg/dL 99 Calcium (8.5-10.1) mg/dL 8.9 Magnesium (1.8-2.4) mg/dL 2.1 Total Bilirubin (0.2-1.0) mg/dL 0.2 AST (15-37) U/L 18 ALT (14-59) U/L 16 Alkaline Phosphatase (46-116) U/L 59 Troponin I (<or=60) ng/L < 50 Total Protein (6.4-8.2) g/dL 7.1 Albumin (3.4-5.0) g/dL 3.8 TSH (0.36-3.74) uIU/mL 1.14 Patient ABO/Rh A Positive Antibody Screen NEGATIVE Crossmatch See Detail Sign Out Sign Out Data: Sign Out Comment: Patient receiving Zofran for nausea and then will receive blood transfusion. Reassess patient for disposition postinfusion. Last updated by Lars Louise MD at 04/29/22 20:09 PAWSS Have you Been Recently Intoxicated or Drunk Within the Last 30 days?: No Have you Ever Experienced Previous Episodes of Alcohol Withdrawal?: No Have you ever Experienced Withdrawal Seizures?: No Have you ever Experienced Delirium Tremens(DT)s?: No Have you ever undergone Alcohol Rehabilitation Treatment (i.e, inpt ot outpatient treatment programs)?: No Have you ever Experienced Blackouts?: No Have you ever Combined Alcohol with other Downers within the last 90 days?: No Have you ever Combined Alcohol with any other Substance of Abuse during the last 90 days?: No Positive Blood Alcohol level on Presentation? [PCS.BAL]: No Evidence of Increased Autonomic Activity (i.e. HR>120, tremor, sweating, agitation, nausea)?: No Result: 0
[2022-05-03 09:53] LABS: Prothrombin Time 10.1 sec (9.3-11.0)
== END 2022-04-29 22:56 | disposition home or self-care (01) ==
PROVIDERS: Physician Assistant; Student in an Organized Health Care Education/Training Program; Emergency Provider Emergency Medicine; PCP Family Medicine
DX: D64.9 Anemia, unspecified (principal); N93.9 Abnormal uterine and vaginal bleeding, unspecified; F90.9 Attention-deficit hyperactivity disorder, unspecified type; Z90.710 Acquired absence of both cervix and uterus
CPT/HCPCS: 80053; 86850; 86900; 86901; 86920; 93005; 74177; 83735; 84443; 84484; 85025; 93010; J1170; J2060; J2405; P9016

== ENCOUNTER 2022-05-03 08:05 | Emergency (ER) | payer MEDICAID, SELFPAY ==
[2022-05-03 08:08] VITALS: BP 142/88; PULSE 95; RESP 16; TEMP 37.2; O2SAT 100
[2022-05-03 08:18] VITALS: BP 126/86; PULSE 80; O2SAT 100
[2022-05-03] MEDS: Normal Saline 1,000 ML 125 ML IV (08:30)
[2022-05-03 08:34] LABS: Abs Immature Grans 0.04 10^3/uL (0.0-0.06); Absolute Basophil Count 0.05 10^3/uL (0.0-0.2); Absolute Eosinophil Count 0.08 10^3/uL (0.0-0.7); Absolute Lymphocyte Count 1.85 10^3/uL (1.2-3.4); Absolute Monocyte Count 0.53 10^3/uL (0.1-0.8); Basophils % 0.5; Eosinophils % 0.9; HCT 34.6 % (36.0-46.0); HGB 11.3 g/dL (11.2-15.7); Immature Grans % 0.4; Lymphocytes % 20.2; MCH 28.8 pg (27.0-33.0); MCHC 32.7 % (32.0-36.0); MCV 88 fL (80-95); MPV 8.8 fL (8.0-11.0); Monocytes % 5.8; Neutrophils % 72.2; Platelet Count 411 10^3/uL (130-400); RBC 3.92 10^6/uL (3.93-5.22); RDW 13.3 % (11.7-14.6); RDW-SD 42.7 fL; WBC 9.15 10^3/uL (4.4-10.8)
--- NOTE | 2022-05-03 08:34 | W.ED.GENAD ---
Discharge Plan Disposition Patient Disposition: Home Condition: Stable Discharge Details Clinical Impression: Vaginal bleeding, Abdominal pain Primary Care Provider: Edi Izaguirre ED Provider: Liliana Garsia Home Meds and New Rx's Prescriptions: Continued buspirone 5 mg tablet 5 mg PO DAILY PRN Label Comments: Pt states no longer using.HE ondansetron HCl 4 mg tablet 4 mg PO Q6H PRN (Reason: nausea and vomiting) Qty: 10 0RF iron 18 mg tablet 36 mg PO DAILY lamotrigine 100 mg tablet 150 mg PO DAILY Discharge Instructions Instructions: Abdominal Pain (ED) Additional Instructions: As we discussed, INTERNAL AFFAIRS INVESTIGATOR believes that your bleeding today may be associated with scab coming off of your wound. She advised that you may continue to have this small amount of bleeding. Your anemia is correcting well. Please continue to encourage supportive care. You may use Tylenol and ibuprofen to help with discomfort. Please keep your appointment this week with INTERNAL AFFAIRS INVESTIGATOR. Please continue to abstain from sexual intercourse or any foreign objects in your vagina. If you develop increased bleeding, fever/chills, increased abdominal pain or other new/worsening symptom please seek care urgently once again. Referrals: Cathleen Guthrie MD [ [facility] STAFF PHYSICIAN] - Discharge Data Discharge Date/Time-TO BE ENTERED AT DEPARTURE: 05/03/22 12:17 Medical Decision Making Patient is a pleasant 36-year-old female presenting today with chief complaint of recurrent vaginal bleeding.? Patient was initially seen here on 04/19/2022 with hemorrhage in the setting of a 3-week status post vaginal hysterectomy.? Initially, this was after having intercourse.? Patient denies any intercourse yesterday or today.? Patient was transfused and went to the operating room for definitive management. ? Surgical repair showed superficial dehiscence of the vaginal cuff.? There was a arterial bleeder noted in the upper right vaginal cuff.? Patient then presented once again to the emergency department on 04/29/2022.? At that time, she is not presenting for bleeding but rather for weakness, fatigue and dizziness.? CT of her abdomen was obtained as the patient was endorsing some left lower quadrant pain.? Patient reports that today she began noticing some bleeding while in the shower.? She denies any lightheadedness, dizziness.? She has not had any intercourse or any objects placed intravaginally recently.? He continues to have some of the left lower quadrant pain which patient reports has been continuous since her ectopic which initially led to the hysterectomy.? She denies any easy bruising, bleeding elsewhere.? No change in bowel or bladder habits.? Denies any new or acute change in the pain. On exam, patient appears very anxious.? She is hemodynamically stable.? Blood pressure slightly elevated at times in the room with the patient with a systolic in the 140s.? Patient is requesting an anxiety lytic and we will give her IV Ativan.? She does have some mild tenderness in the left lower quadrant but no peritoneal findings.? We will no intravaginal exam was done, I do see a small amount of blood externally but no evidence of active exsanguination or significant hemorrhage.? Will consult with INTERNAL AFFAIRS INVESTIGATOR, repeat labs. constuled with Dr. Garcia. She advised that this is likely associated with scab that came off of the surgical site. She advised that we can monitor the patient. She expects that the bleeding will slow. Did not feel that CTA needed at this time. Advised that intravaginal exam not needed at this time. Advised that if bleeding remains light, they will see patient in the clinic. I reevaluated the patient multiple times. Aside from continuing to be anxious and upset about the recurrence, she is feeling well. She is still having left lower quadrant pain is now amenable to some acetaminophen. Have rechecked bleeding multiple times in the blood is continuing, does appear to be prolonged. Patient has currently been here for almost 3 hours and has not required a second menstrual pad. Two notes were accidentally opened on this patient during this visit. Please see other note regarding d/c. HPI General Date/Time Provider Initiated Documentation: 05/03/22 08:09. Related Data Home Medications Medication Instructions Recorded Confirmed lamotrigine 100 mg tablet 150 mg PO DAILY 11/18/21 05/06/22 buspirone 5 mg tablet 5 mg PO DAILY PRN 11/29/21 05/06/22 ondansetron HCl 4 mg tablet 4 mg PO Q6H PRN nausea and 03/25/22 05/06/22 vomiting #10 tabs iron 18 mg tablet 36 mg PO DAILY 04/21/22 05/06/22 Previous Rx's Medication Instructions Recorded ondansetron HCl 4 mg tablet 4 mg PO Q6H PRN nausea and 03/25/22 vomiting #10 tabs Allergies Allergy/AdvReac Type Severity Reaction Status Date / Time escitalopram [From Lexapro] Allergy Verified 05/06/22 14:50 General Stated Complaint: INTERNAL AFFAIRS INVESTIGATOR ANGEL: 2 PFSH All Active Problems (Updated 05/06/22 @ 18:16 by Cathleen Guthrie MD) Anemia (Acute) Vaginal bleeding (Acute) Abdominal pain (Acute) History of repair of dehiscence of vaginal cuff (Acute) Vaginal hemorrhage (Acute) Encounter for postoperative wound check (Acute) Vaginal odor (Acute) Screen for STD (sexually transmitted disease) (Acute) Dysuria (Acute) Migraine headache without aura (Acute) Pelvic pain (Acute) Left-sided back pain (Acute) History of dysmenorrhea (Acute) Pre-op exam (Acute) Nausea and vomiting (Acute) Medical History ADHD Anxiety state Ectopic Endometriosis History of depression Surgical wound infection Surgical History History of appendectomy History of laparoscopy 2012. For endometriosis. 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 Female Reproductive History Menstrual control method: pills and permanent sterilization History History 5 Para 3 Hx # Term Pregnancies 3 Multiple births Hx # Pregnancies Ectopic pregnancies 1 AB induced 1 Hx Number of Living Children 3 AB spontaneous Course Vital Signs Vital signs: Vital Signs Temperature 37.2 C 05/03/22 08:08 Pulse 95 H 05/03/22 08:08 Respiratory Rate 16 05/03/22 08:08 Blood Pressure 142/88 H 05/03/22 08:08 Pulse Oximetry 100 05/03/22 08:08 Temperature 37.2 C 05/03/22 08:08 Temperature Source Skin 05/03/22 08:08 Pulse 80 05/03/22 08:18 Respiratory Rate 16 05/03/22 08:08 Respiratory Effort 05/03/22 08:25 Blood Pressure 126/86 05/03/22 08:18 Pulse Oximetry 100 05/03/22 08:18 Oxygen Delivery Method Room Air 05/03/22 08:18 Oxygen Flow Rate 0 05/03/22 08:18 Pain Level 6 05/03/22 08:24
[2022-05-03 08:46] LABS: ALT 16 U/L (14-59); AST 22 U/L (15-37); Alkaline Phosphatase 63 U/L (46-116); Anion Gap 7.9 mmol/L (3-11); BUN 10 mg/dL (7-18); Bilirubin, Total 0.5 mg/dL (0.2-1.0); CO2 24.1 mmol/L (21.0-32.0); CREATININE 0.7 mg/dL (0.55-1.02); Chloride 109 mmol/L (98-107); Estimated GFR 113.46 (mL/min/1.73m2); Glucose 102 mg/dL (74-106); Potassium 3.9 mmol/L (3.5-5.1); Sodium 141 mmol/L (136-145); Total Protein 7.4 g/dL (6.4-8.2)
[2022-05-03] MEDS: LORazepam 2 MG/ML VIAL 1 MG IVP (08:56)
[2022-05-03 09:01] VITALS: BP 117/69; PULSE 81
[2022-05-03 09:30] VITALS: BP 114/69; PULSE 78
[2022-05-03] MEDS: Acetaminophen 500 MG TAB 1000 MG PO (11:52)
[2022-05-03 12:04] VITALS: TEMP 37.1
== END 2022-05-03 12:17 | disposition home or self-care (01) ==
PROVIDERS: Emergency Provider Physician Assistant; PCP Family Medicine
DX: N93.9 Abnormal uterine and vaginal bleeding, unspecified (principal); R10.32 Left lower quadrant pain; Z90.710 Acquired absence of both cervix and uterus; T81.32XA Disruption of internal operation (surgical) wound, not elsewhere classified, initial encounter; I77.2 Rupture of artery
CPT/HCPCS: 80053; 86850; 86900; 86901; 96374; 99284; 85025; 85610; 85730; J2060

== ENCOUNTER 2022-07-07 18:14 | Outpatient (REF) | payer MEDICAID, SELFPAY ==
[2022-07-07 14:59] LABS: Bilirubin Negative (Negative); Blood Negative (Negative); Clarity Cloudy (Clear); Glucose Negative (Negative); Ketones Negative (Negative); Leukocyte Esterase Negative (Negative); Nitrite Negative (Negative); Specific Gravity >= 1.030 (1.005-1.025); Urobilinogen 0.2 mg/dL (Up to 0.2)
== END 2022-07-07 18:15 | disposition home or self-care (01) ==
LOC: NCHCN 18:14
PROVIDERS: PCP Family Medicine; Visit Provider Family Medicine
DX: R39.89 Other symptoms and signs involving the genitourinary system (principal); R14.0 Abdominal distension (gaseous); R82.998 Other abnormal findings in urine
CPT/HCPCS: 81003

== ENCOUNTER 2022-07-09 08:59 | Outpatient (CLI) | payer MEDICAID, SELFPAY ==
[2022-07-09 08:48] LABS: Abs Immature Grans 0.03 10^3/uL (0.0-0.06); Absolute Basophil Count 0.04 10^3/uL (0.0-0.2); Absolute Eosinophil Count 0.04 10^3/uL (0.0-0.7); Absolute Monocyte Count 0.47 10^3/uL (0.1-0.8); Absolute Neutrophil Count 5.19 10^3/uL (1.2-6.7); Basophils % 0.5; Eosinophils % 0.5; HCT 41.6 % (36.0-46.0); HGB 13.2 g/dL (11.2-15.7); Immature Grans % 0.4; Lymphocytes % 26.7; MCH 26.6 pg (27.0-33.0); MCHC 31.7 % (32.0-36.0); MCV 84 fL (80-95); Neutrophils % 65.9; Platelet Count 329 10^3/uL (130-400); RBC 4.97 10^6/uL (3.93-5.22); RDW 12.9 % (11.7-14.6); RDW-SD 38.9 fL; WBC 7.87 10^3/uL (4.4-10.8)
[2022-07-09 09:20] LABS: TSH (W/Ref FT4) 1.95 uIU/mL (0.36-3.74)
[2022-07-10 12:33] LABS: IgA 118 mg/dL (85-499); Interpretation (See Note); Tissue Transglutaminase IgA <1.2 U/mL (<4.0)
[2022-07-10 16:14] LABS: ALT 16 U/L (14-59); AST 12 U/L (15-37); Albumin 3.8 g/dL (3.4-5.0); Alkaline Phosphatase 60 U/L (46-116); Anion Gap 10.1 mmol/L (3-11); BUN 8 mg/dL (7-18); Bilirubin, Total 0.3 mg/dL (0.2-1.0); CO2 25.9 mmol/L (21.0-32.0); CREATININE 0.7 mg/dL (0.55-1.02); Chloride 104 mmol/L (98-107); Estimated GFR 113.46 (mL/min/1.73m2); Glucose 89 mg/dL (74-106); Potassium 3.8 mmol/L (3.5-5.1); Sodium 140 mmol/L (136-145); Total Protein 7.2 g/dL (6.4-8.2)
== END 2022-07-09 09:00 | disposition home or self-care (01) ==
LOC: LBO 09:00
PROVIDERS: PCP Family Medicine; Visit Provider Family Medicine
DX: R14.0 Abdominal distension (gaseous) (principal); R53.83 Other fatigue
CPT/HCPCS: 36415; 80053; 82784; 83516; 84443; 85025

== ENCOUNTER 2022-07-25 12:22 | Emergency (ER) | payer MEDICAID, SELFPAY ==
[2022-07-25 12:35] VITALS: BP 124/68; PULSE 81; RESP 16; TEMP 36.9; O2SAT 97
== END 2022-07-25 13:24 ==
PROVIDERS: PCP Family Medicine
DX: Z53.21 Procedure and treatment not carried out due to patient leaving prior to being seen by health care provider (principal)

== ENCOUNTER 2022-07-29 09:35 | Emergency (ER) | payer MEDICAID, SELFPAY ==
[2022-07-29 09:41] VITALS: BP 107/63; PULSE 78; RESP 18; TEMP 35.7; O2SAT 97
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
[2022-07-29] MEDS: diazePAM 2 MG TAB PO (10:13)
[2022-07-29] MEDS: Lidocaine 5% Patch 1 PATCH TP (10:13)
--- NOTE | 2022-07-29 10:44 | DI.RAD_ITS ---
Exam(s) XR LUMBAR SPINE COMPLETE EXAM: XR LUMBAR SPINE COMPLETE CLINICAL HISTORY: Low back pain. TECHNIQUE: 2D digital imaging was performed of the lumbar spine. Five images were obtained. AP, la teral, right oblique, left oblique and L5-S1 spot views were obtained. COMPARISON: No exams were available for comparison FINDINGS: BONES: No fracture or destructive lesion. Small endplate osteophytes are seen at multiple levels of t he lower thoracic and lumbar spine. Mild degenerative changes are seen at the facets at L5-S1. DISKS: Intervertebral disc spaces are maintained. ALIGNMENT: Lumbar spinal alignment is within normal limits. No spondylolysis or spondylolisthesis. SOFT TISSUE: Surgical clips are seen in the right lower quadrant. IMPRESSION: 1. Mild degenerative changes in the lumbar spine. 2. No acute abnormality. DATA REPOSITORY: RADIATION DOSE DELIVERED:
[2022-07-29 10:58] LABS: Bilirubin Negative (Negative); Blood Negative (Negative); Clarity Clear (Clear); Glucose Negative (Negative); Ketones Negative (Negative); Leukocyte Esterase Negative (Negative); Nitrite Negative (Negative); Specific Gravity 1.025 (1.005-1.025); Urobilinogen 0.2 mg/dL (Up to 0.2)
[2022-07-29 11:37] VITALS: BP 120/58; PULSE 71; RESP 18; O2SAT 99
== END 2022-07-29 11:42 | disposition home or self-care (01) ==
PROVIDERS: Emergency Provider Registered Nurse Emergency; PCP Family Medicine
DX: M47.816 Spondylosis without myelopathy or radiculopathy, lumbar region (principal)
CPT/HCPCS: 99283; 72110; 81003; 99284

== ENCOUNTER 2022-08-26 13:43 | Outpatient (REF) | payer MEDICAID, SELFPAY | END 2022-08-26 13:44 | disposition home or self-care (01) | LOC: LBN 13:43 | PROVIDERS: PCP Family Medicine; Visit Provider Obstetrics & Gynecology Gynecology | DX: R30.0 Dysuria (principal) | CPT/HCPCS: 87077; 87086; 87186 ==

== ENCOUNTER 2022-09-22 11:38 | Outpatient (CLI) | payer MEDICAID, SELFPAY ==
[2022-09-22 11:08] LABS: HCT 39.4 % (36.0-46.0); HGB 13.3 g/dL (11.2-15.7); MCH 28.2 pg (27.0-33.0); MCHC 33.8 % (32.0-36.0); MCV 84 fL (80-95); MPV 8.9 fL (8.0-11.0); Platelet Count 295 10^3/uL (130-400); RBC 4.71 10^6/uL (3.93-5.22); RDW-SD 46.5 fL; WBC 9.17 10^3/uL (4.4-10.8)
[2022-09-22 11:42] LABS: Anion Gap 6.6 mmol/L (3-11); BUN 9 mg/dL (7-18); CO2 26.4 mmol/L (21.0-32.0); CREATININE 0.7 mg/dL (0.55-1.02); Chloride 103 mmol/L (98-107); Estimated GFR 113.46 (mL/min/1.73m2); Glucose 133 mg/dL (74-106); Potassium 3.6 mmol/L (3.5-5.1); Sodium 136 mmol/L (136-145)
== END 2022-09-22 11:39 | disposition home or self-care (01) ==
LOC: LBO 11:39
PROVIDERS: PCP Family Medicine; Visit Provider Obstetrics & Gynecology Gynecology
DX: Z01.818 Encounter for other preprocedural examination (principal)
CPT/HCPCS: 36415; 80048; 85027; 86850; 86900; 86901

== ENCOUNTER 2022-10-08 09:47 | Day surgery (SDC) | payer MEDICAID, SELFPAY ==
[2022-10-08] VITALS (10 sets, daily range): BP systolic 98–130; BP diastolic 50–73; PULSE 62–84; RESP 13–20; TEMP 35.8–36.6; O2SAT 96–100; BMI 27.4
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
[2022-10-08] MEDS: Lactated Ringers 1,000 ML 125 ML IV ×2 (10:49→12:45)
[2022-10-08] MEDS: ceFAZolin 2 GM/50 ML BAG IVPB (12:45)
--- NOTE | 2022-10-08 13:00 | VAG_PTH ---
PATIENT: Taniya Moncada LOC: [facility] U#:[id number] AGE/SX: 36/F ROOM: RE10/08/[address]: Cathleen Guthrie : 1985 BED: DIS: 10/08/2022 SPEC #: [id number] RECD: 10/08/22 17:49 STATUS: KAYLIN RECandi #: [id number] CASSIUS: 10/08/22 13:[address]: Cathleen Guthrie DEPT: Surgical Specimen RECD BY: Celsa Card ENTERED: 10/08/22 17:50 SP TYPE: VAG OTHR DR: Edi Izaguirre Tissues: 1 - VAGINAL BIOPSY Procedures: GROSS AND MICRO LEVEL 4 Comments: [id number]
[2022-10-08] MEDS: Bupivacaine 0.25% Pres-Free 30 ML VIAL (13:13)
[2022-10-08] MEDS: Triamcinolone 40 MG/ML VIAL (13:14)
--- NOTE | 2022-10-08 13:26 | PDOC.DSDIS_ITS ---
Date of service: 10/08/22 Time of Service: 13:26 Discharge Plan Disposition Patient Disposition: Home Discharge Details Reason For Visit: revsion of vaginal cuff Attending Provider: Cathleen Guthrie Primary Care Provider: Edi Izaguirre Home Meds and New Rx's Prescriptions: No Action fluticasone propionate 0.005 % ointment 1 applic topical BID Qty: 30 1RF Rx Instructions: Apply tiny amount to clitoral raygoza and labia minora ondansetron HCl 4 mg tablet 4 mg PO Q6H PRN (Reason: nausea and vomiting) Qty: 10 0RF lamotrigine 100 mg tablet 150 mg PO DAILY Discharge Instructions Additional Instructions: Please nothing in your vagina no tampons, no sex until I see you at your postop visit. Plan on no intercourse for 3 weeks. You may have some light vaginal bleeding that will stop after 1 day. Your vagina was feel sore for at least a w [place]. Continue to take the ibuprofen and the prescription for Percocet every 6 hours as needed for pain for the next week. After that time just use the ibuprofen. 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
[2022-10-08] MEDS: fentaNYL 100 MCG/2 ML VIAL IVP ×2 (13:41→13:49)
[2022-10-08] MEDS: LORazepam 2 MG/ML VIAL 0.5 MG IVP ×2 (13:55→14:00)
--- NOTE | 2022-10-08 13:58 | ROE_ITS ---
Date of service: 10/08/22 Time of Service: 13:58 Operative Note Operative Note DATE OF PROCEDURE: 10/08/22 PRE-OP DIAGNOSIS: dyspareunia, pelvic pain, vaginal pain POST-OP DIAGNOSIS: same PROCEDURE: removal of redundant vaginal epithelium in proximity to the vaginal cuff, injection of anesthetic and steroid into lateral vaginal cuff SURGEON: Cathleen Guthrie ASSISTING SURGEON: Louisa Parrish ANESTHESIA TYPE: General LMA/ETT Refer to Anesthesia Record ESTIMATED BLOOD LOSS: 0 PATHOLOGY: other (vaginal epithelium) COMPLICATIONS: None Patient was transported to: PACU Patient's condition: stable Indications: Patient is a 36-year-old? 5 para 1-0-2-3 female who presents with report of vulva and periclitoral burning. She underwent a LAVH on 04/20/22 for pelvic pain and since that procedure has had continued L sided pelvic pain and deep dyspareunia. There was focal tenderness at the L side of the vaginal cuff. Decision made to assess vaginal cuff and revise vaginal epithelium and perform injection of the site with Marcaine and Kenaolg. Findings: The vaginal cuff which had originally been closed in a vertical fashion was intact. The fibromuscular tissue in the midline of the vaginal vault was smooth. No masses in the posterior or anterior culdesac. Along the vaginal vault along 1cm to the left of the vaginal cuff were 4 fibromuscular tags of smooth vaginal epithelium each on a wide base. Each tag was 1cm in width and and 2cm in length. These tags were previously the site of the patient's pain on serial bimanual exams. No evidence of spasm of the muscularis of the vaginal epithelium with pressure on the vaginal vault. No contact bleeding from the delgado with palpation or instrumentation. Procedure Description: Patient was taken to the operating room where she was placed in the dorsal supine position and general anesthesia was administered without difficulty. IV Ancef was administered upon arrival in the OR. She was then placed in the dorsal lithotomy position in yellowfin stirrups in a neurologically neutral position. She was then prepped, and draped in the usual sterile fashion. Surgical timeout was performed. A bimanual exam was performed with the above noted findings. A weighted speculu m was placed into the vagina and a curved romina retractor used to visualize the vaginal vault. The each of the fibromuscular tissue tags were infiltrated with 0.25% Marcaine with Epinephrine and amputated with scissors at the base. The epithelium of each pedicle was closed with an interrupted suture of 0-Vicryl. The pedicles were inspected and noted to be hemostatic. Then 15cc of a solution of 0.25% Marcaine with 20mg of Kenalog was then infiltrated into 1cm of the fibromuscular tissue 0.5cm from the center of the vaginal cuff along the right and left margins of the cuff. The cuff was inspected and noted to be hemostatic. All instruments were removed from the vagina and the patient placed in the dorsal supine position, awakened extubated and transported to recovery area in stable condition. All sponge lap needle counts correct x2
--- NOTE | 2022-10-08 14:02 | W.ANESPOSTOP ---
Postoperative Evaluation Date, Time and Location Date Performed: 10/08/22 Time Performed: 14:02 Patient Location: PACU Vital Signs Most Recent Imported Vital Signs: Most Recent Vital Signs Temp Pulse Resp BP Pulse Ox 36.4 C L 84 20 125/73 98 10/08/22 10:02 10/08/22 10:02 10/08/22 10:02 10/08/22 10:02 10/08/22 10:02 Pain Score Most Recent Pain Score: Most Recent Pain Score Pain Level 7 10/08/22 10:02 Assessment Mental Status: Awake (Alert & Oriented to Patient Baseline) Airway and Respiratory Function: Patent airway with normal (patient baseline) respiratory exam Cardiovascular Function: Hemodynamically Stable Hydration Status: Adequately Hydrated Nausea & Vomiting: No Nausea or Vomiting Pain: Pain is tolerable per patient Peripheral Nerve Block: Patient did not receive a nerve block
[2022-10-08] MEDS: oxyCODONE 5 mg/Acetaminophen 325 mg TAB PO (14:40)
== END 2022-10-08 09:48 | disposition home or self-care (01) ==
PROVIDERS: PCP Family Medicine; Visit Provider Obstetrics & Gynecology Gynecology
PROC: (CPT 58260; principal; 2022-10-08 12:15)
DX: N94.10 Unspecified dyspareunia (principal); R10.2 Pelvic and perineal pain; N84.2 Polyp of vagina
CPT/HCPCS: 57135; 86850; 86900; 86901; 88305; J0690; J1100; J1885; J2060; J2250; J2405; J2704; J3010

== ENCOUNTER 2022-10-21 11:09 | Emergency (ER) | payer MEDICAID, SELFPAY ==
[2022-10-21 11:20] VITALS: BP 125/65; PULSE 93; RESP 16; TEMP 37.2; O2SAT 98
--- NOTE | 2022-10-21 13:07 | NUR.NOTE ---
Nursing Note: Left without being seen
--- NOTE | 2022-10-21 13:13 | W.EDPROG ---
Date of service: 10/21/22 Time of Service: 13:13 Medical Decision Making I had signed up to participate in this patient's care. I had ordered an x-ray of her right knee she reportedly had some right knee pain at triage. She left prior to being seen. I did not see her. She did not have her x-ray completed. Discharge Plan Discharge Details Chief Complaint: Orthopedic Primary Care Provider: Edi Izaguirre ED Provider: Gary Ryan Lemont Meds and New Rx's Prescriptions: No Action oxycodone-acetaminophen [Endocet] 5-325 mg tablet 1 tab PO Q6H MDD 4 PRN (Reason: pain) Qty: 30 0RF ibuprofen 600 mg tablet 600 mg PO Q6H PRN (Reason: pain) Qty: 45 2RF fluticasone propionate 0.005 % ointment 1 applic topical BID Qty: 30 1RF Rx Instructions: Apply tiny amount to clitoral raygoza and labia minora ondansetron HCl 4 mg tablet 4 mg PO Q6H PRN (Reason: nausea and vomiting) Qty: 10 0RF lamotrigine 100 mg tablet 150 mg PO DAILY
== END 2022-10-21 14:07 | disposition left against medical advice (07) ==
PROVIDERS: Emergency Provider Emergency Medicine; PCP Family Medicine
DX: Z53.1 Procedure and treatment not carried out because of patient's decision for reasons of belief and group pressure (principal)

== ENCOUNTER 2023-01-20 12:02 | Emergency (ER) | payer MEDICAID, SELFPAY ==
[2023-01-20 12:07] VITALS: BP 118/76; PULSE 97; RESP 18; TEMP 37.1; O2SAT 97
--- NOTE | 2023-01-20 12:15 | DI.US_ITS ---
Exam(s) US SOFT TISS ABD WALL/LOW BACK EXAM: US SOFT TISS ABD WALL/LOW BACK CLINICAL HISTORY: right inguinal and groin pain, eval for abscess. TECHNIQUE: Ultrasound was performed using standard protocol. COMPARISON: No exams were available for comparison FINDINGS: Sonographic assessment utilizing grayscale and color Doppler imaging was performed and targeted to th e area of clinical concern. There is a 1.1 x 0.5 x 1.0 cm subcutaneous fluid collection in the right inguinal region. Minimal va scularity is noted in the region. There are reactive benign-type lymph nodes in the right inguinal r egion. The largest measures 1.2 x 0.5 x 0.7 cm. IMPRESSION: Nonspecific 1.1 x 0.5 x 1 cm fluid collection in the right inguinal region. A tiny abscess cannot be excluded. Please correlate clinically. DATA REPOSITORY:
[2023-01-20] MEDS: oxyCODONE 5 MG TAB PO (12:35)
[2023-01-20] MEDS: Cephalexin 500 MG CAP PO (12:35)
[2023-01-20 12:51] LABS: Abs Immature Grans 0.03 10^3/uL (0.0-0.06); Absolute Basophil Count 0.03 10^3/uL (0.0-0.2); Absolute Eosinophil Count 0.05 10^3/uL (0.0-0.7); Absolute Lymphocyte Count 2.19 10^3/uL (1.2-3.4); Absolute Monocyte Count 0.48 10^3/uL (0.1-0.8); Absolute Neutrophil Count 6.24 10^3/uL (1.2-6.7); Basophils % 0.3; Eosinophils % 0.6; HCT 39.1 % (36.0-46.0); HGB 13.5 g/dL (11.2-15.7); Immature Grans % 0.3; Lymphocytes % 24.3; MCH 29.6 pg (27.0-33.0); MCHC 34.5 % (32.0-36.0); MCV 86 fL (80-95); Monocytes % 5.3; Neutrophils % 69.2; Platelet Count 325 10^3/uL (130-400); RBC 4.56 10^6/uL (3.93-5.22); RDW 12.2 % (11.7-14.6); RDW-SD 38.5 fL; WBC 9.02 10^3/uL (4.4-10.8)
[2023-01-20 13:07] LABS: ALT 12 U/L (14-59); AST 13 U/L (15-37); Albumin 3.6 g/dL (3.4-5.0); Alkaline Phosphatase 59 U/L (46-116); Anion Gap 7.1 mmol/L (3-11); BUN 8 mg/dL (7-18); Bilirubin, Total 0.3 mg/dL (0.2-1.0); CO2 26.9 mmol/L (21.0-32.0); CREATININE 0.7 mg/dL (0.55-1.02); Calcium 9.3 mg/dL (8.5-10.1); Chloride 106 mmol/L (98-107); Estimated GFR 112.75 (mL/min/1.73m2); Glucose 116 mg/dL (74-106); Potassium 3.7 mmol/L (3.5-5.1); Sodium 140 mmol/L (136-145)
--- NOTE | 2023-01-20 13:14 | ED.GENADUL_ITS ---
Discharge Plan Disposition Patient Disposition: Home Discharge Details Clinical Impression: Cellulitis, Lymphadenopathy Primary Care Provider: Edi Izaguirre ED Provider: Celsa Amaro Home Meds and New Rx's Prescriptions: New cephalexin 500 mg capsule 500 mg PO Q6H 7 Days Qty: 28 0RF Continued ibuprofen 600 mg tablet 600 mg PO Q6H PRN (Reason: pain) Qty: 45 2RF fluticasone propionate 0.005 % ointment 1 applic topical BID Qty: 30 1RF Patient Comments: not taking Rx Instructions: Apply tiny amount to clitoral raygoza and labia minora ondansetron HCl 4 mg tablet 4 mg PO Q6H PRN (Reason: nausea and vomiting) Qty: 10 0RF Patient Comments: not taking Lupron Depot 3.75 mg syringe kit 3.75 mg IM QMONTH Qty: 1 4RF Patient Comments: not taking oxycodone-acetaminophen [Percocet] 5-325 mg tablet 1 tab PO Q6H MDD 4 PRN (Reason: pain) Qty: 30 0RF Patient Comments: not taking lamotrigine 100 mg tablet 150 mg PO DAILY Discharge Instructions Instructions: Cellulitis (ED) Additional Instructions: Use your razor only a single time and then dispose as this can spread infection Wash with soap and water Take the opiate sparingly, this can be addictive and can make you constipated Take the antibiotic as prescribed, yogurt daily while on the antibiotics Warm compresses to the area Ibuprofen 600 mg every 8 hours with food Tylenol 650 every 4-6 hours for breakthrough pain Referrals: Edi Izaguirre MD [Primary Care Provider] - Discharge Data Discharge Date/Time-TO BE ENTERED AT DEPARTURE: 01/20/23 13:18 Medical Decision Making 37-year-old female, calm cooperative without evidence of significant systemic illness Given level of pain on proportion to exam, I did order diagnostic blood work and ultrasound which shows lymphadenopathy, possible developing abscess, will treat with antibiotics Ultrasound results reviewed with radiologist No leukocytosis, no signs of systemic illness, encouraged warm compresses, 4 tablets of oxycodone were supplied for discomfort with risk of addiction reviewed Return precautions reviewed and patient expressed understanding HPI General Date/Time Provider Initiated Documentation: 01/20/23 12:19 . HPI Narrative: This 37-year-old female presents with report of redness overlying area that she shaved last evening in the suprapubic region, she has pain to the groin and inguinal region as well which started today which is why she presents. Denies fever or chills. Denies chance of . Related Data Home Medications Medication Instructions Recorded Confirmed lamotrigine 100 mg tablet 150 mg PO DAILY 11/18/21 01/21/23 ondansetron HCl 4 mg tablet 4 mg PO Q6H PRN nausea and 03/25/22 01/21/23 vomiting #10 tabs fluticasone propionate 0.005 % 1 applic topical BID #30 grams 10/06/22 01/21/23 topical ointment ibuprofen 600 mg tablet 600 mg PO Q6H PRN pain #45 tabs 10/08/22 01/21/23 leuprolide 3.75 mg intramuscular 3.75 mg IM QMONTH #1 ea 11/13/22 01/21/23 syringe kit (Lupron Depot) oxycodone-acetaminophen 5 mg-325 1 tab PO Q6H PRN pain #30 tabs 11/13/22 01/21/23 mg tablet (Percocet) cephalexin 500 mg capsule 500 mg PO Q6H 7 days #28 caps 01/20/23 Previous Rx's Medication Instructions Recorded ondansetron HCl 4 mg tablet 4 mg PO Q6H PRN nausea and 03/25/22 vomiting #10 tabs fluticasone propionate 0.005 % 1 applic topical BID #30 grams 10/06/22 topical ointment ibuprofen 600 mg tablet 600 mg PO Q6H PRN pain #45 tabs 10/08/22 leuprolide 3.75 mg intramuscular 3.75 mg IM QMONTH #1 ea 11/13/22 syringe kit (Lupron Depot) oxycodone-acetaminophen 5 mg-325 1 tab PO Q6H PRN pain #30 tabs 11/13/22 mg tablet (Percocet) cephalexin 500 mg capsule 500 mg PO Q6H 7 days #28 caps 01/20/23 Allergies Allergy/AdvReac Type Severity Reaction Status Date / Time escitalopram [From Lexapro] AdvReac Dizziness, Verified 01/20/23 12:09 headache General Stated Complaint: Cellulitis ANGEL: 3 PFSH All Active Problems (Updated 01/20/23 @ 13:13 by OLIVER Rodriguez) Cellulitis (Acute) Lymphadenopathy (Acute) Dyspareunia, female (Acute) Migraine headache without aura (Acute) Pelvic pain (Acute) Vulvar pain (Acute) Vaginal pain (Acute) Medical History (Updated 01/20/23 @ 13:13 by OLIVER Rodriguez) ADHD Anxiety state COVID 09/20/22 Dysuria History of depression History of dysmenorrhea Left-sided back pain Tourettes disease pt states it is mild Surgical History History of appendectomy History of laparoscopy 2012. For endometriosis. History of repair of dehiscence of vaginal cuff History of tonsillectomy Hx of section 2019, Arrest disorder [place], [place] Hx of tubal ligation S/P laparoscopic assisted vaginal hysterectomy (LAVH) 03/26/2022 Social History Smoking/Tobacco Use Status: Current-Occasional Tobacco Type: e-cigarettes Smoking risk assessment performed?: Yes Alcohol Intake: current Alcohol Intake frequency: holidays/special occasions only Alcohol type: wine and hard liquor Drug use: Never Substance use type: does not use Household members: children and other Details: [facility] Housing: house Number of Children: 3 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[employer], 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 Pets and animals: Yes Pets and animals: dog(s) What type of physical activity do you participate in: walking Seatbelt use: always Do you feel safe at home: Yes Do you feel safe in your relationship?: Yes Female Reproductive History Menstrual control method: pills and permanent sterilization History History 5 Para 3 Hx # Term Pregnancies 3 Multiple births Hx # Pregnancies Ectopic pregnancies 1 AB induced 1 Hx Number of Living Children 3 AB spontaneous Course Vital Signs Vital signs: Vital Signs Temperature 37.1 C 01/20/23 12:07 Pulse 97 H 01/20/23 12:07 Respiratory Rate 18 01/20/23 12:07 Blood Pressure 118/76 01/20/23 12:07 Pulse Oximetry 97 01/20/23 12:07 Temperature 37.1 C 01/20/23 12:07 Temperature Source Skin 01/20/23 12:07 Pulse 97 H 09/19/23 12:07 Respiratory Rate 18 01/20/23 12:07 Respiratory Effort Normal 01/20/23 12:16 Blood Pressure 118/76 01/20/23 12:07 Blood Pressure Position Sitting 01/20/23 12:07 Pulse Oximetry 97 01/20/23 12:07 Oxygen Delivery Method Room Air 01/20/23 12:07 Oxygen Flow Rate 0 01/20/23 12:07 Pain Level 8 01/20/23 12:07 Lab/Test Results Lab/Test Results: Laboratory Tests Range/Units 01/20/23 01/20/23 12:45 12:45 WBC (4.4-10.8) 10^3/uL 9.02 RBC (3.93-5.22) 10^6/uL 4.56 Hgb (11.2-15.7) g/dL 13.5 Hct (36.0-46.0) % 39.1 MCV (80-95) fL 86 MCH (27.0-33.0) pg 29.6 MCHC (32.0-36.0) % 34.5 RDW (11.7-14.6) % 12.2 Plt Count (130-400) 10^3/uL 325 MPV (8.0-11.0) fL 9.0 Immature Gran % 0.3 Neutrophils % 69.2 Lymphocytes % 24.3 Monocytes % 5.3 Eosinophils % 0.6 Basophils % 0.3 Nucleated RBC % (0.0-0.3) % 0.0 Absolute Neutrophils (1.2-6.7) 10^3/uL 6.24 Absolute Lymphocytes (1.2-3.4) 10^3/uL 2.19 Absolute Monocytes (0.1-0.8) 10^3/uL 0.48 Absolute Eosinophils (0.0-0.7) 10^3/uL 0.05 Absolute Basophils (0.0-0.2) 10^3/uL 0.03 Sodium (136-145) mmol/L 140 Potassium (3.5-5.1) mmol/L 3.7 Chloride (98-107) mmol/L 106 Carbon Dioxide (21.0-32.0) mmol/L 26.9 Anion Gap (3-11) mmol/L 7.1 BUN (7-18) mg/dL 8 Creatinine (0.55-1.02) mg/dL 0.7 Est GFR (CKD-EPI 2020) (mL/min/1.73m2) 112.75 Glucose (74-106) mg/dL 116 H Calcium (8.5-10.1) mg/dL 9.3 Total Bilirubin (0.2-1.0) mg/dL 0.3 AST (15-37) U/L 13 L ALT (14-59) U/L 12 L Alkaline Phosphatase (46-116) U/L 59 Total Protein (6.4-8.2) g/dL 7.0 Albumin (3.4-5.0) g/dL 3.6
== END 2023-01-20 13:18 | disposition home or self-care (01) ==
PROVIDERS: Emergency Provider Physician Assistant; PCP Family Medicine
DX: L03.314 Cellulitis of groin (principal); I89.1 Lymphangitis; F17.290 Nicotine dependence, other tobacco product, uncomplicated
CPT/HCPCS: 80053; 99284; 76705; 85025; 99282

== ENCOUNTER → 2023-02-05 03:02 | Outpatient (CLI) | payer MEDICAID, SELFPAY ==
--- NOTE | 2023-02-05 07:00 | DI.RAD_ITS ---
Exam(s) XR FOOT RT COMPLETE EXAM: XR FOOT RT COMPLETE CLINICAL HISTORY: Right foot pain,M79.671. TECHNIQUE: 2D digital imaging was performed. COMPARISON: No exams were available for comparison FINDINGS: 3 views No evidence of fracture nor diastasis of the Lisfranc joint. Bone density normal. No osseous lesion s nor erosions. No obvious degenerative changes. IMPRESSION: No significant osseous findings. DATA REPOSITORY: RADIATION DOSE DELIVERED:
== END ==
PROVIDERS: PCP Family Medicine; Visit Provider Podiatrist
DX: M79.671 Pain in right foot (principal)
CPT/HCPCS: 73630

== ENCOUNTER 2023-04-16 11:42 | Emergency (ER) | payer MEDICAID, SELFPAY ==
[2023-04-16] VITALS (19 sets, daily range): BP systolic 102–134; BP diastolic 24–90; PULSE 76–100; RESP 11–18; O2SAT 96–100
--- NOTE | 2023-04-16 11:30 | RT.EKG_ITS ---
APPROVED REPORT Exam: Resting ECG Reason for Exam: DIZZINESS NAUSEA Patient Location: E HR:82 bpm ECG Measurements Heart Rate 82 AXIS IL 149 P 46 QRSd 87 QRS 11 QT 366 T 8 QTc 428 Conclusion Sinus rhythm. normal axis no acute st changes
[2023-04-16] MEDS: diazePAM 10 MG/2 ML SYR 5 MG IVP ×2 (12:27→13:32)
[2023-04-16 12:30] LABS: Abs Immature Grans 0.02 10^3/uL (0.0-0.06); Absolute Basophil Count 0.06 10^3/uL (0.0-0.2); Absolute Lymphocyte Count 2.38 10^3/uL (1.2-3.4); Absolute Monocyte Count 0.57 10^3/uL (0.1-0.8); Absolute Neutrophil Count 5.13 10^3/uL (1.2-6.7); Basophils % 0.7; Eosinophils % 1.2; HCT 39.8 % (36.0-46.0); HGB 13.5 g/dL (11.2-15.7); Immature Grans % 0.2; Lymphocytes % 28.8; MCH 29.3 pg (27.0-33.0); MCHC 33.9 % (32.0-36.0); MCV 87 fL (80-95); MPV 9.1 fL (8.0-11.0); Monocytes % 6.9; Neutrophils % 62.2; Platelet Count 322 10^3/uL (130-400); RDW 12.3 % (11.7-14.6); RDW-SD 39.2 fL; WBC 8.26 10^3/uL (4.4-10.8)
[2023-04-16] MEDS: Omnipaque 350 MG/ML 100 ML BTL IJ (12:43)
[2023-04-16] MEDS: Normal Saline - Diluent 50 ML VIAL IJ (12:44)
[2023-04-16 12:49] LABS: ALT 14 U/L (14-59); AST 10 U/L (15-37); Albumin 3.6 g/dL (3.4-5.0); Alkaline Phosphatase 49 U/L (46-116); Anion Gap 8.5 mmol/L (3-11); BUN 7 mg/dL (7-18); Bilirubin, Total 0.3 mg/dL (0.2-1.0); CO2 26.5 mmol/L (21.0-32.0); CREATININE 0.7 mg/dL (0.55-1.02); Calcium 8.9 mg/dL (8.5-10.1); Chloride 106 mmol/L (98-107); Estimated GFR 112.75 (mL/min/1.73m2); Glucose 124 mg/dL (74-106); Magnesium 1.9 mg/dL (1.8-2.4); Potassium 3.8 mmol/L (3.5-5.1); Sodium 141 mmol/L (136-145); Total Protein 6.8 g/dL (6.4-8.2)
[2023-04-16 12:50] LABS: Troponin I < 50 ng/L (<or=60)
--- NOTE | 2023-04-16 12:52 | DI.CT_ITS ---
Exam(s) CT CERVICAL SPINE WO EXAM: CT CERVICAL SPINE WO CLINICAL HISTORY: neck pain. TECHNIQUE: Imaging Protocol: Axial computed tomography images with coronal and sagittal reformatted images were created and reviewed COMPARISON: CT CT BRAIN NECK CTA from 04/16/2023 FINDINGS: Bones: No acute fracture or subluxation. There is straightening of the normal cervical lordosis which may be due to muscle spasm or patient positioning. There is a limbus vertebra at C5. No significan t central spinal canal or neural foraminal stenosis. Soft Tissues: Unremarkable. Lung Apices: Clear. IMPRESSION: 1. No acute fracture or subluxation in the cervical spine. 2. If there are radicular concerns, an MRI of the cervical spine may be obtained. RADIATION DOSE DELIVERED: Total DLP Total DLP DATA REPOSITORY: All CT scans at this facility are submitted to the National Radiology Data Registry (NRDR) Dose Index Registry (DIR) with the [employer] (A[employer]). RADIATION OPTIMIZATION: All CT scans at this facility use at least one of these dose optimization te chniques: automated exposure control; mA and/or kV adjustment per patient size (includes targeted exa ms where dose is matched to clinical indication); or iterative reconstruction.
--- NOTE | 2023-04-16 13:06 | DI.CT_ITS ---
Exam(s) CT BRAIN NECK CTA EXAM: CT BRAIN NECK CTA CLINICAL HISTORY: dizziness, neck pain. TECHNIQUE: Imaging Protocol: Axial CT angiography was performed with multi-slice acquisition and mu lti-planar and/or 3D reconstructions. CONTRAST MATERIAL: Intravenous: Omnipaque 350 contrast volume:85 mL COMPARISON: CT HEAD WITHOUT CONTRAST from 04/20/2008 CT HEAD WITHOUT CONTRAST from 01/06/2011 CT BRAIN W/O CONTRAST from 11/26/2019 FINDINGS: CT Head W/O and W: Ventricles and Extra axial spaces: Normal in size and morphology for the patient's age. Hemorrhage: None. Cerebral parenchyma: Normal. Midline shift: None. Brainstem/Cerebellum: Normal. Calvarium: Normal. Visualized Paranasal sinuses/Mastoids: There is mild mucosal thickening seen in the posterior right m axillary sinus. This may represent a mucous retention cyst. Soft Tissues: Unremarkable. Enhancement: Unremarkable. Examination is limited by metallic artifact and motion artifact. This is particularly evident in the proximal common carotid and vertebral arteries bilaterally. CTA Neck W: Common Carotid: Right: No occlusion or significant stenosis. Left: No occlusion or significant stenosis. External Carotid: Right: No occlusion or significant stenosis. Left: No occlusion or significant stenosis. Internal Carotid: Right: No dissection, occlusion or significant stenosis. Left: No dissection, occlusion or significant stenosis. Vertebral Artery: Right: No dissection, occlusion or significant stenosis. Left: No dissection, occlusion or significant stenosis. Lung Apices: Normal. Bones: Within normal limits for the patient's age. Soft Tissues: Normal. Thyroid gland: Unremarkable. CTA Brain W: Internal Carotid Arteries: Normal. Anterior Cerebral Arteries: Right: No aneurysm, occlusion or significant stenosis. Left: No aneurysm, occlusion or significant stenosis. Middle Cerebral Arteries: Right: No aneurysm, occlusion or significant stenosis. Left: No aneurysm, occlusion or significant stenosis. Posterior Cerebral Arteries: Right: No aneurysm, occlusion or significant stenosis. Left: No aneurysm, occlusion or significant stenosis. Vertebral Arteries: Right: No aneurysm, occlusion or significant stenosis. Left: No aneurysm, occlusion or significant stenosis. Basilar Artery: No aneurysm, occlusion or significant stenosis. IMPRESSION: 1. No large vessel occlusion or significant stenosis on the CT angiography of the head. 2. No acute intracranial process. 3. No occlusion or significant stenosis on the CT angiography of the neck. 4. Findings were discussed with the emergency department at 1:29 p.m. on 04/16/2023. RADIATION DOSE DELIVERED: Total DLP DATA REPOSITORY: All CT scans at this facility are submitted to the National Radiology Data Registry (NRDR) Dose Index Registry (DIR) with the [employer] (ACR). RADIATION OPTIMIZATION: All CT scans at this facility use at least one of these dose optimization te chniques: automated exposure control; mA and/or kV adjustment per patient size (includes targeted exa ms where dose is matched to clinical indication); or iterative reconstruction.
[2023-04-16] MEDS: Normal Saline 1,000 ML 1000 ML IV (13:25)
[2023-04-16] MEDS: Prochlorperazine 10 MG/2 ML VIAL 5 MG IVP (13:32)
[2023-04-16 13:47] LABS: Bilirubin Negative (Negative); Blood Negative (Negative); Clarity Clear (Clear); Glucose Negative (Negative); Ketones Negative (Negative); Leukocyte Esterase Negative (Negative); Nitrite Negative (Negative); Specific Gravity 1.015 (1.005-1.025); Urobilinogen 0.2 mg/dL (Up to 0.2)
--- NOTE | 2023-04-16 14:12 | ED.GENADUL_ITS ---
Discharge Plan Disposition Patient Disposition: Home Discharge Details Clinical Impression: Dizziness, Headache Primary Care Provider: Edi Izaguirre ED Provider: Celsa Amaro Home Meds and New Rx's Prescriptions: New diazepam [Valium] 5 mg tablet 5 mg PO BID PRNQty: 6 0RF Continued ibuprofen 600 mg tablet 600 mg PO Q6H PRN (Reason: pain) Qty: 45 2RF lamotrigine 100 mg tablet 200 mg PO DAILY Discharge Instructions Instructions: Dizziness (ED), General Headache (ED) Additional Instructions: Warm compresses, Valium as needed for musculoskeletal pain, do not combine this with alcohol or drive a vehicle for 8 hours after taking this medication Please follow-up with neurology, have placed a referral to Dr. Meredith Please also follow-up with your primary care physician and return earlier should you have new or worsening complaints Referrals: Edi Izaguirre MD [Primary Care Provider] - Grace Meredith MD [ [facility] STAFF PHYSICIAN] - Medical Decision Making 37-year-old female presenting with headache and dizziness with neck change position Alert and oriented x 4, cranial nerves II through XII intact, negative [id number], negative pronator drift, ambulatory with steady gait, lungs clear to auscultation, cardiac rate rhythm regular, no carotid bruit, no meningismus, low clinical suspicion for meningitis CTA was ordered of head and neck to evaluate for dissection or vascular anomaly, no evidence of acute abnormality per radiology interpretation my review Nonfocal neurological exam, ambulatory with steady gait Diagnostic labs do not show acute abnormality Feeling improvement after Valium administration, referral to neurology for further evaluation Encouraged hydration Work note supplied Return precautions reviewed and patient expressed understanding, discharged home with stable vitals stable exam HPI General Date/Time Provider Initiated Documentation: 04/16/23 11:56 . HPI Narrative: This 37-year-old female presents with report of dizziness and headache. She states that she has been having these headaches for the past several days. Denies any change in symptoms. States that when she extends her head she gets symptoms. This been going on for the past several years she has been evaluated numerous hospitals without a clear etiology of her symptoms. Had presyncopal event today. Denies any recent trauma to her neck. Has have headaches lasting several seconds which she describes as lightning headaches . She was told that she does not have a cluster migraine history. No risk of carbon oxide per patient. Denies chance of . Related Data Home Medications Medication Instructions Recorded Confirmed lamotrigine 100 mg tablet 200 mg PO DAILY 11/18/21 04/16/23 ibuprofen 600 mg tablet 600 mg PO Q6H PRN pain #45 tabs 10/08/22 04/16/23 diazepam 5 mg tablet (Valium) 5 mg PO BID PRN #6 tabs 04/16/23 Previous Rx's Medication Instructions Recorded ibuprofen 600 mg tablet 600 mg PO Q6H PRN pain #45 tabs 10/08/22 diazepam 5 mg tablet (Valium) 5 mg PO BID PRN #6 tabs 04/16/23 Allergies Allergy/AdvReac Type Severity Reaction Status Date / Time escitalopram [From Lexapro] AdvReac Dizziness, Verified 04/16/23 11:47 headache General Stated Complaint: Dizzy/Sync ANGEL: 3 PFSH All Active Problems (Updated 04/16/23 @ 13:46 by OLIVER Rodriguez) Headache (Acute) Dizziness (Acute) Pain, joint, foot, right (Acute) Pain in right foot (Acute) Gout (Chronic) Hyperuricemia (Acute) Dyspareunia, female (Acute) Vaginal pain (Acute) Vulvar pain (Acute) Pelvic pain (Acute) Migraine headache without aura (Acute) Medical History COVID 09/20/22 Tourettes disease pt states it is mild Dysuria History of dysmenorrhea Left-sided back pain Anxiety state History of depression ADHD Surgical History History of repair of dehiscence of vaginal cuff S/P laparoscopic assisted vaginal hysterectomy (LAVH) 03/26/2022 Hx of tubal ligation History of tonsillectomy Hx of section 2019, Arrest disorder [place], [place] History of laparoscopy 2012. For endometriosis. 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 Pets and animals: Yes Pets and animals: dog(s) What type of physical activity do you participate in: walking Seatbelt use: always Do you feel safe at home: Yes Do you feel safe in your relationship?: Yes Female Reproductive History Menstrual control method: pills and permanent sterilization History History 5 Para 3 Hx # Term Pregnancies 3 Multiple births Hx # Pregnancies Ectopic pregnancies 1 AB induced 1 Hx Number of Living Children 3 AB spontaneous Course Vital Signs Vital signs: Vital Signs Pulse 100 H 04/16/23 11:43 Respiratory Rate 12 04/16/23 11:43 Blood Pressure 134/90 04/16/23 11:43 Pulse Oximetry 98 04/16/23 11:43 Pulse 86 04/16/23 14:00 Pulse 86 04/16/23 13:50 Respiratory Rate 15 04/16/23 14:00 Respiratory Effort Normal 04/16/23 11:50 Respiratory Depth Normal 04/16/23 11:50 Respiratory Pattern Normal 04/16/23 11:50 Blood Pressure 110/62 04/16/23 14:00 Blood Pressure Mean 75 04/16/23 12:31 Blood Pressure Position Sitting 04/16/23 11:43 Pulse Oximetry 99 04/16/23 14:00 Pain Level 9 04/16/23 11:43 Lab/Test Results Lab/Test Results: Laboratory Tests Range/Units 04/16/23 04/16/23 04/16/23 11:47 11:47 13:29 WBC (4.4-10.8) 10^3/uL 8.26 RBC (3.93-5.22) 10^6/uL 4.60 Hgb (11.2-15.7) g/dL 13.5 Hct (36.0-46.0) % 39.8 MCV (80-95) fL 87 MCH (27.0-33.0) pg 29.3 MCHC (32.0-36.0) % 33.9 RDW (11.7-14.6) % 12.3 Plt Count (130-400) 10^3/uL 322 MPV (8.0-11.0) fL 9.1 Immature Gran % 0.2 Neutrophils % 62.2 Lymphocytes % 28.8 Monocytes % 6.9 Eosinophils % 1.2 Basophils % 0.7 Nucleated RBC % (0.0-0.3) % 0.0 Absolute Neutrophils (1.2-6.7) 10^3/uL 5.13 Absolute Lymphocytes (1.2-3.4) 10^3/uL 2.38 Absolute Monocytes (0.1-0.8) 10^3/uL 0.57 Absolute Eosinophils (0.0-0.7) 10^3/uL 0.10 Absolute Basophils (0.0-0.2) 10^3/uL 0.06 Sodium (136-145) mmol/L 141 Potassium (3.5-5.1) mmol/L 3.8 Chloride (98-107) mmol/L 106 Carbon Dioxide (21.0-32.0) mmol/L 26.5 Anion Gap (3-11) mmol/L 8.5 BUN (7-18) mg/dL 7 Creatinine (0.55-1.02) mg/dL 0.7 Est GFR (CKD-EPI 2020) (mL/min/1.73m2) 112.75 Glucose (74-106) mg/dL 124 H Calcium (8.5-10.1) mg/dL 8.9 Magnesium (1.8-2.4) mg/dL 1.9 Cancelled Total Bilirubin (0.2-1.0) mg/dL 0.3 AST (15-37) U/L 10 L ALT (14-59) U/L 14 Alkaline Phosphatase (46-116) U/L 49 Troponin I (<or=60) ng/L < 50 Total Protein (6.4-8.2) g/dL 6.8 Albumin (3.4-5.0) g/dL 3.6 Urine Color (Yellow) Yellow Urine Clarity (Clear) Clear Urine pH (5-8) 7.0 Ur Specific Harmony (1.005-1.025) 1.015 Urine Protein (Negative) mg/dL Negative Urine Ketones (Negative) mg/dL Negative Urine Blood (Negative) Negative Urine Nitrite (Negative) Negative Urine Bilirubin (Negative) Negative Urine Urobilinogen (Up to 0.2) mg/dL 0.2 Ur Leukocyte Esterase (Negative) Negative Urine Glucose (Negative) mg/dL Negative
--- NOTE | 2023-04-16 14:13 | NUR.NOTE ---
Referral faxed to [facility] Neurology for headaches, dizziness, in 2 weeks. Nursing Note:
== END 2023-04-16 14:01 | disposition home or self-care (01) ==
PROVIDERS: Emergency Provider Physician Assistant; PCP Family Medicine
DX: R51.9 Headache, unspecified (principal); M54.2 Cervicalgia; R42 Dizziness and giddiness; F41.9 Anxiety disorder, unspecified; Z79.899 Other long term (current) drug therapy
CPT/HCPCS: 70496; 70498; 80053; 93005; 96361; 96374; 96375; 96376; 99285; 72125; 81003; 83735; 84484; 85025; 93010; J0780; J3360; J3490

== ENCOUNTER 2023-05-16 16:44 | Outpatient (REF) | payer MEDICAID, SELFPAY ==
[2023-05-19 14:53] LABS: Chlamydia Result Negative (Negative); GC Result Negative (Negative)
== END 2023-05-16 16:45 | disposition home or self-care (01) ==
LOC: LBN 16:44
PROVIDERS: PCP Family Medicine; Visit Provider Physician Assistant
DX: N76.0 Acute vaginitis (principal); R35.0 Frequency of micturition; N39.0 Urinary tract infection, site not specified; Z11.3 Encounter for screening for infections with a predominantly sexual mode of transmission
CPT/HCPCS: 87077; 87491; 87591; 87086; 87186

== ENCOUNTER 2023-06-03 13:07 | Emergency (ER) | payer MEDICAID, SELFPAY ==
[2023-06-03 13:12] VITALS: BP 120/82; PULSE 90; RESP 17; O2SAT 98
--- NOTE | 2023-06-03 13:30 | DI.RAD_ITS ---
Exam(s) XR HAND RT COMPLETE XR WRIST RT COMPLETE EXAM: XR HAND RT COMPLETE and XR wrist RT complete CLINICAL HISTORY: right hand and wrist trauma. TECHNIQUE: 2D digital imaging was performed of the right wrist and hand. Six images were obtained. AP, lateral and oblique views were obtained. COMPARISON: No priors for comparison. FINDINGS: BONES: No acute fracture is present. No bony destructive lesion is seen. JOINTS: No dislocation present. The joint spaces are well maintained. SOFT TISSUE: Normal. IMPRESSION: Unremarkable radiographs of the right wrist and hand. DATA REPOSITORY: RADIATION DOSE DELIVERED:
--- NOTE | 2023-06-03 14:30 | NUR.NOTE ---
Nursing Note: Offered ice again, pt declined. Reminded pt to elevate extremity (sitting up, using phone in her lap).
[2023-06-03 14:53] VITALS: BP 102/66; PULSE 81; RESP 18; O2SAT 96
--- NOTE | 2023-06-04 18:12 | ED.GENADUL_ITS ---
HPI General Date/Time Provider Initiated Documentation: 06/03/23 13:27 . HPI Narrative: 37-year-old female presenting with right forearm and hand injury. Door closed on her arm. Denies any additional injuries or chance of . Related Data Home Medications Medication Instructions Recorded Confirmed lamotrigine 100 mg tablet 200 mg PO DAILY 11/18/21 05/19/23 ibuprofen 600 mg tablet 600 mg PO Q6H PRN pain #45 tabs 10/08/22 05/19/23 diazepam 5 mg tablet (Valium) 5 mg PO BID PRN #6 tabs 04/16/23 05/19/23 leuprolide 3.75 mg intramuscular 3.75 mg IM QMONTH #1 ea 05/12/23 05/19/23 syringe kit (Lupron Depot) oxycodone-acetaminophen 5 mg-325 1 tab PO Q6H PRN pain #28 tabs 05/12/23 05/19/23 mg tablet (Percocet) fluconazole 150 mg tablet 150 mg PO ONCE #1 tab 05/16/23 05/16/23 phenazopyridine 200 mg tablet 200 mg PO TID PRN pain 6 doses #6 05/16/23 05/16/23 (Pyridium) tabs Previous Rx's Medication Instructions Recorded ibuprofen 600 mg tablet 600 mg PO Q6H PRN pain #45 tabs 10/08/22 diazepam 5 mg tablet (Valium) 5 mg PO BID PRN #6 tabs 04/16/23 leuprolide 3.75 mg intramuscular 3.75 mg IM QMONTH #1 ea 05/12/23 syringe kit (Lupron Depot) oxycodone-acetaminophen 5 mg-325 1 tab PO Q6H PRN pain #28 tabs 05/12/23 mg tablet (Percocet) fluconazole 150 mg tablet 150 mg PO ONCE #1 tab 05/16/23 phenazopyridine 200 mg tablet 200 mg PO TID PRN pain 6 doses #6 05/16/23 (Pyridium) tabs Allergies Allergy/AdvReac Type Severity Reaction Status Date / Time escitalopram [From Lexapro] AdvReac Dizziness, Verified 05/16/23 09:29 headache General Stated Complaint: Orthopedic ANGEL: 4 Course Vital Signs Vital signs: Vital Signs Pulse 90 06/03/23 13:12 Respiratory Rate 17 06/03/23 13:12 Blood Pressure 120/82 01/31/24 13:12 Pulse Oximetry 98 06/03/23 13:12 Temperature Source Oral 06/03/23 13:12 Pulse 81 06/03/23 14:53 Respiratory Rate 18 06/03/23 14:53 Respiratory Effort Normal, Non-Labored 06/03/23 13:20 Blood Pressure 102/66 06/03/23 14:53 Blood Pressure Position Sitting 06/03/23 13:12 Pulse Oximetry 96 06/03/23 14:53 Oxygen Delivery Method Room Air 06/03/23 13:12 Oxygen Flow Rate 0 06/03/23 13:12 Medical Decision Making This 37-year-old female presents with right hand and wrist with tenderness, mild swelling, neurovascularly intact X-ray does not show evidence of fracture per radiology interpretation my review Placed in a wrist splint for comfort Ibuprofen and Tylenol as needed for pain Return precautions reviewed and patient expressed understanding Quality:SDOH Health Related Social Needs: No Data to Display PFSH All Active Problems (Updated 06/03/23 @ 14:35 by OLIVER Rodriguez) Contusion of right wrist (Acute) Pain, joint, foot, right (Acute) Pain in right foot (Acute) Gout (Chronic) Hyperuricemia (Acute) Dyspareunia, female (Acute) Vaginal pain (Acute) Vulvar pain (Acute) Pelvic pain (Acute) Migraine headache without aura (Acute) Medical History COVID 09/20/22 Tourettes disease pt states it is mild Dysuria History of dysmenorrhea Left-sided back pain Anxiety state History of depression ADHD Surgical History History of repair of dehiscence of vaginal cuff S/P laparoscopic assisted vaginal hysterectomy (LAVH) 03/26/2022 Hx of tubal ligation History of tonsillectomy Hx of section 2019, Arrest disorder [place], [place] History of laparoscopy 2012. For endometriosis. 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 Pets and animals: Yes Pets and animals: dog(s) What type of physical activity do you participate in: walking Seatbelt use: always Do you feel safe at home: Yes Do you feel safe in your relationship?: Yes Female Reproductive History Menstrual control method: pills and permanent sterilization History History 5 Para 3 Hx # Term Pregnancies 3 Multiple births Hx # Pregnancies Ectopic pregnancies 1 AB induced 1 Hx Number of Living Children 3 AB spontaneous Discharge Plan Disposition Patient Disposition: Home Discharge Details Clinical Impression: Contusion of right wrist Primary Care Provider: Edi Izaguirre ED Provider: Celsa Amaro Home Meds and New Rx's Prescriptions: Continued ibuprofen 600 mg tablet 600 mg PO Q6H PRN (Reason: pain) Qty: 45 2RF Lupron Depot 3.75 mg syringe kit 3.75 mg IM QMONTH Qty: 1 3RF oxycodone-acetaminophen [Percocet] 5-325 mg tablet 1 tab PO Q6H MDD 4 PRN (Reason: pain) Qty: 28 0RF phenazopyridine [Pyridium] 200 mg tablet 200 mg PO TID PRN (Reason: pain) Qty: 6 0RF fluconazole 150 mg tablet 150 mg PO ONCE Qty: 1 1RF Rx Instructions: as a single dose. Repeat in one week if needed lamotrigine 100 mg tablet 200 mg PO DAILY diazepam [Valium] 5 mg tablet 5 mg PO BID PRNQty: 6 0RF Discharge Instructions Instructions: Contusion in Adults (ED) Additional Instructions: Take ibuprofen and Tylenol as needed for pain Ice, use splint as needed and return earlier should you have new or worsening complaints Referrals: Edi Izaguirre MD [Primary Care Provider] - Discharge Data Discharge Date/Time-TO BE ENTERED AT DEPARTURE: 06/03/23 14:54
== END 2023-06-03 14:54 | disposition home or self-care (01) ==
PROVIDERS: Emergency Provider Physician Assistant; PCP Family Medicine
DX: S60.211A Contusion of right wrist, initial encounter (principal); W23.0XXA Caught, crushed, jammed, or pinched between moving objects, initial encounter; Y93.89 Activity, other specified
CPT/HCPCS: 99283; 73110; 73130

== ENCOUNTER 2023-12-31 13:42 | Outpatient (CLI) | payer MEDICAID, SELFPAY ==
--- NOTE | 2023-12-31 11:15 | DI.US_ITS ---
Exam(s) US ABDOMEN PELVIS EXAM: US ABDOMEN PELVIS CLINICAL HISTORY: acute onset LLQ pain. s/p vaginal hysterectomy, R10.2 TECHNIQUE: Ultrasound abdomen performed using standard protocol. COMPARISON: CT CT ABDOMEN PELVIS W from 04/29/2022 FINDINGS: LIVER: Normal size and echogenicity. No focal liver lesions are seen. GALLBLADDER: No evidence of cholelithiasis. No evidence of wall thickening. No pericholecystic fluid identified. GRACIA'S SIGN: Negative. BILIARY SYSTEM: No intrahepatic or extrahepatic biliary ductal dilation. KIDNEYS: Kidneys are symmetric in size. No evidence of renal calculi. No evidence of hydronephrosis. No renal mass or cyst identified. PANCREAS: Normal where visualized. SPLEEN: Not enlarged. ABDOMINAL AORTA AND IVC: Visualized portions normal caliber. ASCITES: None seen. Pelvis: No free fluid. Status post hysterectomy. Ovaries not visualized. Bladder is unremarkable. IMPRESSION: Normal sonographic appearance of the upper abdomen. Status post hysterectomy. Ovaries visualized. Bladder is unremarkable. DATA REPOSITORY:
== END 2023-12-31 14:02 ==
LOC: DI 13:43
PROVIDERS: PCP Family Medicine; Visit Provider Obstetrics & Gynecology Gynecology
DX: R10.2 Pelvic and perineal pain (principal); Z90.710 Acquired absence of both cervix and uterus
CPT/HCPCS: 76700; 76856

== ENCOUNTER 2024-03-22 02:05 | Outpatient (CLI) | payer MEDICAID, SELFPAY ==
--- NOTE | 2024-03-22 | DI.CT_ITS ---
Exam(s) CT LUMBAR SPINE WO EXAM: CT LUMBAR SPINE WO CLINICAL HISTORY: Sciatic pain, severe. TECHNIQUE: Imaging Protocol: Axial computed tomography images with coronal and sagittal reformatted images were created and reviewed COMPARISON: CT CT ABDOMEN PELVIS W from 04/29/2022 FINDINGS: Bones: The last intervertebral disc space is designated the L5/S1 level for the numbering purpose of this examination. The vertebral body heights are well maintained. Alignment is satisfactory. No fracture is seen. T12-L1: No disc herniations or bulges are present. L1-2: No disc herniations or bulges are present. L2-3: No disc herniations or bulges are present. L3-4: Mild disc bulging eccentric toward the right. L4-5: Mild loss of disc height posteriorly, similar to prior exam. Calcification in the posterior a nnulus is unchanged. There is [id number] diffuse disc bulging. There is a superimposed centra l disc herniation with extrusion of disc material inferior to the L4 L5 disc level. This causes mode rate to severe central canal stenosis. There is mild ligamentous hypertrophy. L5-S1: Minimal disc bulging. Disc height is normal. There are facet osteophytes which project medi ally and narrow the lateral recesses at the S1 level. A nerve root sheath cyst is seen on the right side at the S1-2 level. The visualized SI joints and sacrum are well maintained. Soft Tissues: The paraspinal soft tissues are unremarkable. IMPRESSION: L4-5 central disc herniation with inferior extrusion of disc material causing moderate to severe cent ral canal stenosis. RADIATION DOSE DELIVERED: Total DLP DATA REPOSITORY: All CT scans at this facility are submitted to the National Radiology Data Registry (NRDR) Dose Index Registry (DIR) with the [employer] (ACR). RADIATION OPTIMIZATION: All CT scans at this facility use at least one of these dose optimization te chniques: automated exposure control; mA and/or kV adjustment per patient size (includes targeted exa ms where dose is matched to clinical indication); or iterative reconstruction.
== END 2024-03-22 02:25 ==
LOC: DI 02:05
PROVIDERS: PCP Family Medicine; Visit Provider Nurse Practitioner Family
DX: M51.26 Other intervertebral disc displacement, lumbar region (principal)
CPT/HCPCS: 72131

== ENCOUNTER 2024-05-16 09:52 | Emergency (ER) | payer MEDICAID, SELFPAY ==
[2024-05-16 09:54] VITALS: BP 132/92; PULSE 109; RESP 20; TEMP 36.3; O2SAT 99
--- NOTE | 2024-05-16 10:07 | ED.GENADUL_ITS ---
Discharge Plan Disposition Patient Disposition: Home Condition: Stable Discharge Details Clinical Impression: Lumbar back pain with radiculopathy affecting right lower extremity Primary Care Provider: Edi Izaguirre ED Provider: Cornelius Vasquez Home Meds and New Rx's Prescriptions: Continued ibuprofen 600 mg tablet 600 mg PO Q6H PRN (Reason: pain) Qty: 45 2RF hydromorphone [Dilaudid] 2 mg tablet 2 mg PO Q6H MDD 4 PRN (Reason: pain) Qty: 10 0RF rizatriptan 10 mg tablet See Rx Instructions PO .COMPLEX Qty: 10 5RF Rx Instructions: take 1 tab at onset of headache; if no relief may repeat 1 tab after at least 2 hrs; max = 3 tabs/24 hr PO lamotrigine 100 mg tablet 200 mg PO DAILY atomoxetine 25 mg capsule 25 mg PO DAILY Patient Comments: TAKE 1 CAPSULE BY MOUTH EVERY MORNING Discharge Instructions Instructions: Radiculopathy of the neck and back (including sciatica), Low Back Pain ED Additional Instructions: You were seen in the emergency department for your ongoing lumbar back pain with sciatica affecting her right leg. As we discussed this has an element of pinched nerves from your mild disc bulges of your lumbar spine which are pressing on your sciatic nerve really come out of the spinal column. You have no evidence of spinal emergency, we discussed at length the signs of spinal emergency including urinary retention and bowel incontinence and numbness to the genitals. Your primary care provider has sent you hydrocodone prescription as well as Valium which will help your muscles relax. As we discussed use these as directed. Please use therapeutic dosing of Tylenol (acetamenophen) & Advil (ibuprofen) in an alternating fashion as follows: Take 1000mg of Tylenol every 6 hours without missing doses- that is 4 times per day. [place] in between the Tylenol dosings, take 400-600mg of Advil also on a 6 hour schedule, that is also 4 times per day. The daily maximum dosing of Tylenol is 4000mg, and the daily maximum dosing of Advil is 2400mg. This is safe to do for weeks. Please note that some common cold medications & prescription pain medications may contain acetamenophen and you need to read OTC drug labels and factor that in to maximum daily dosings. Use bjph-[id number]-[id number] lidocaine patches to help you sleep at night applying for 12 hours each day. Purchase pntm-flu-gsfrekj Voltaren gel a topical anti- inflammatory and rub it on the area of pain 3 times per day. Follow-up with physical therapy visits which I have placed a referral for you. You may try massage therapy or chiropractor if desired once the acute pain has lessened. Stand Alone Forms: Physical Therapy Referral Referrals: Edi Izaguirre MD [Primary Care Provider] - Discharge Data Discharge Date/Time-TO BE ENTERED AT DEPARTURE: 05/16/24 10:50 HPI General Date/Time Provider Initiated Documentation: 05/16/24 10:06 . HPI Narrative: 38 year-old female presents to ED today by POV/ambulating with a chief complaint of severe back pain with known lumbar disc herniations, seen at PCP sent over for pain, with onset over weeks, worsening. Quality described as severe lower back pain with shooting pains down the R leg only, no radiation to complete numbness, urinary/bowel changes, numbness to genitals, history of IVDU, paralysis. Severity is described as 10/10. Palliating factors include PCP has sent hydrocodone and valium. Provoking factors include certain movements. Events leading up to the incident/Associated Symptoms: Patient has not had PT referral, no MRI outpatient yet. Patient not anticoagulated. Related Data Home Medications ?Medication ?Instructions ?Recorded ?Confirmed lamotrigine 100 mg tablet 200 mg PO DAILY 11/18/21 05/16/24 ibuprofen 600 mg tablet 600 mg PO Q6H PRN pain #45 tabs 10/08/22 05/16/24 rizatriptan 10 mg tablet See Rx Instructions PO .COMPLEX 07/30/23 05/16/24 #10 tabs hydromorphone 2 mg tablet 2 mg PO Q6H PRN pain #10 tabs 12/31/23 05/16/24 (Dilaudid) atomoxetine 25 mg capsule 25 mg PO DAILY 05/16/24 05/16/24 Previous Rx's ?Medication ?Instructions ?Recorded ibuprofen 600 mg tablet 600 mg PO Q6H PRN pain #45 tabs 10/08/22 rizatriptan 10 mg tablet See Rx Instructions PO .COMPLEX 07/30/23 #10 tabs hydromorphone 2 mg tablet 2 mg PO Q6H PRN pain #10 tabs 12/31/23 (Dilaudid) Allergies Allergy/AdvReac Type Severity Reaction Status Date / Time escitalopram (From Lexapro) AdvReac Dizziness, Verified 05/16/24 09:57 headache General Stated Complaint: Nk/Back Pain ANGEL: 3 Review of Systems All systems reviewed & are unremarkable except as noted in HPI and below Exam Narrative Exam Narrative: GENERAL APPEARANCE: Well-nourished, non-toxic, awake and alert, atraumatic, no acute distress. SKIN: Warm, pink, dry, intact, without rashes/lesions/ulcerations. HEAD: Normocephalic, atraumatic, normal hair distribution for gender/age. EYES: Normal conjunctiva, no exudates on lids/lashes. ENT: Nares patent, no circumoral cyanosis, no facial swelling NECK: Supple, trachea midline, painless cervical ROM. LUNGS/CHEST: Non-labored respirations, normal A/P diameter, symmetrical expansion, no chest wall deformity HEART (CV/PV): No peripheral edema, no JVD. ABDOMEN: Soft, non-distended, no guarding. MSK: Normal ROM, no swelling/deformity to bilateral UEs or LEs, moving all extremities without weakness, no cyanosis, spine midline without tenderness, normal curvature, right lumbar paraspinal tenderness radiating through the gluteal muscles, strength and range of motion intact in right lower extremity NEURO: Mental Status AAOx4 - alert to person, place, time, events No facial droop, no forehead involvement. Motor: No focal weakness - strength 5/5 in bilateral UEs and LEs, proximal and distal, symmetric. Sensory: sensation intact to light touch globally. Gait normal: patient ambulated without ataxia into ED room. PSYCH: euthymic, cooperative, pleasant, appropriate speech Course Vital Signs Vital signs: Vital Signs Temperature 36.3 C L 05/16/24 09:54 Pulse 109 H 05/16/24 09:54 Respiratory Rate 20 05/16/24 09:54 Blood Pressure 132/92 H 05/16/24 09:54 Pulse Oximetry 99 05/16/24 09:54 Temperature 36.3 C L 05/16/24 09:54 Temperature Source Oral 05/16/24 09:54 Pulse 109 H 05/16/24 09:54 Respiratory Rate 20 05/16/24 09:54 Blood Pressure 132/92 H 05/16/24 09:54 Blood Pressure Position Sitting 05/16/24 09:54 Pulse Oximetry 99 05/16/24 09:54 Oxygen Delivery Method Room Air 05/16/24 09:54 Oxygen Flow Rate 0 05/16/24 09:54 Pain Level 10 05/16/24 09:54 Medical Decision Making This dictation utilizes zmiom-zv-yjuq dictation software and may contain unedited grammatical errors. 38 year-old female presents to ED today by POV/ambulating with a chief complaint of severe back pain with known lumbar disc herniations, seen at PCP sent over for pain, with onset over weeks, worsening. Quality described as severe lower back pain with shooting pains down the R leg only, no radiation to complete numbness, urinary/bowel changes, numbness to genitals, history of IVDU, paralysis. Severity is described as 10/10. Palliating factors include PCP has sent hydrocodone and valium. Provoking factors include certain movements. Events leading up to the incident/Associated Symptoms: Patient has not had PT referral, no MRI outpatient yet. Patients' medical history: [ ]. Family and social history: [ ]. Pertinent exam findings / vital signs include right lumbar paraspinal tenderness, no vertebral crepitus or step-offs, pain in distribution of sciatic nerve through right gluteal, range of motion and strength intact in the right lower extremity. Differential / pathologies of concern include known disc herniations, unlikely cauda equina or spinal epidural abscess. Diagnostic studies of: -None. Interventions of: -Patient has Rx's sent from PCP already for pain control and muscle relaxation, I did supply doses here today and provide PT referral. ED Course/Assessment/Plan: 38-year-old female with known lumbar disc herniations presents in extreme pain. PCP is already been advised to order outpatient MRI as there are no concerns for cauda equina or spinal epidural abscess, she needs to be on adequate pain regiment and seek physical therapy possible gentle massage therapy appointments, counseled the patient on aggressive treatment regimens and return criteria for signs of cauda equina or spinal epidural abscess. Findings not consistent with cauda equina, spinal epidural abscess, neurovascular compromise of lower extremities. Disposition of lumbar back pain with radiculopathy affecting right lower extremity. Patient verbalized understanding of the plan and return to ED criteria and engaged in shared decision making. Medical Records Medical records reviewed: Yes I reviewed the patient's medical records. Quality:SDOH Health Related Social Needs: No Data to Display PFSH All Active Problems (Updated 05/16/24 @ 10:45 by OLIVER Carrington) Lumbar back pain with radiculopathy affecting right lower extremity (Acute) Chronic headache (Acute) Pain, joint, foot, right (Acute) Pain in right foot (Acute) Gout (Chronic) Hyperuricemia (Acute) Dyspareunia, female (Acute) Vaginal pain (Acute) Vulvar pain (Acute) Pelvic pain (Acute) Migraine headache without aura (Acute) Medical History Anxiety Dysmenorrhea Mild Tourette's syndrome COVID 09/20/22 Tourettes disease pt states it is mild Dysuria History of dysmenorrhea Left-sided back pain Anxiety state History of depression ADHD Surgical History History of repair of dehiscence of vaginal cuff S/P laparoscopic assisted vaginal hysterectomy (LAVH) 03/26/2022 Hx of tubal ligation History of tonsillectomy Hx of section 2019, Arrest disorder [place], [place] History of laparoscopy 2012. For endometriosis. 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
--- OUTSIDE RECORDS SUMMARY | 2024-05-16 10:19 | XMS_ITS | Encounter Summary ---
[place] [address] Care Team Providers Care Correctional Supervising Cook Name Role Phone Edi Izaguirre MD Primary Care Provider [phone] Encounter Details Date Type Department Care Team (Late st Contact Info) Description 09/25/2022 Telephone Obstetrics [place] [phone] Kwan Rosa Social History Tobacco Use Types Packs/Day Years [...] on filedocumented in this encounter Care Teams Correctional Supervising Cook Relationship Specialty Start Date End Date Edi Izaguirre MD [address] [place] [address] PCP - General Family Medicine 05/19/22 04/22/24 documented as of this encounter
--- OUTSIDE RECORDS SUMMARY | 2024-05-16 10:19 | XMS_ITS | Encounter Summary ---
Author Organization [facility] [place] [address] Care Team Providers Care Passenger Car Cleaning Supervisor Name Role Phone Macey Foster APRN Primary Care Provider [phone] Encounter Details Date Type Department Care Team (Late st Contact Info) Description 02/05/2010 Orders Only Lab [facility] [place] [id number] Ori Whitfield MD Social History Tobacco Use [...] 10:40 PM EDT HIV SCREEN, 4TH GENERATION ([facility]) STAT 02/05/2010 10:25 PM EDT DIFFERENTIAL, AUTOMATED [...] PM EDT Ori Whitfield MD CHEMISTRY ORDERABLES [facility] [employer] * REFLEX LAB-BLOOD GAS, VENOUS, CORD (02/06/2010 [...] PM EDT Ori Whitfield MD CHEMISTRY ORDERABLES [facility] * PATHOLOGY SURGICAL PATHOLOGY FINAL REPORT (02/06/2010 10:23 AM EDT) Surgical Pathology Report ? [facility] ? Provider: ?? EMILE RAZA ? Pt. Name: ?? TANIYA JOHNSON ? Acc #: ?[id number] ?Pt. ? Col Date: ?? 02/06/2010 ? [...] Specimen Submitted: ? A - Placenta: ? [facility] ? Provider: ?? EMILE RAZA ? Pt. Name: ?? TANIYA JOHNSON ? Acc #: ?[id number] ?Pt. ? Col Date: ?? 02/06/2010 ? /Sex: ?1985,(24 years),Female ? Rec Date: ?? 02/07/2010 ? LOC: ?BP ? SURGICAL PATHOLOGY ? Clinical History: ? Full-term vaginal delivery, GBS negative. ??Mother on methadone ? Clinical Diagnosis: ? Not provided [facility] 02/06/2010 10:2 3 AM EDT Emile Raza MD PATHOLOGY/CYTOLOGY O RDERABLES Performing Organization Address [facility] de Phone Number [facility] * HEPATITIS C ANTIBODY (02/05/2010 11:00 PM EDT) Pathologist [facility] Hepatitis C Antibody Negative Negative [facility] Blood specimen (specimen) 02/05/2010 11:00 PM EDT 02/06/2010 9:30 AM EDT Ori Whitfield MD CHEMISTRY ORDERABLES Performing Organization Address [facility] de Phone Number [facility] * TOXICOLOGY SCREEN, URINE (02/05/2010 10:40 PM [...] readings from similar or dissimilar crossreacting drugs. APTRIC BRIAN Urine specimen (specimen) 02/05/2010 10:40 PM EDT 02/05/2010 10:54 PM EDT Ori Whitfield MD URINE ORDERABLES Performing Organization Address [facility] Co de Phone Number PATRIC BRIAN * REFLEX LAB-ANTIBODY SCREEN (02/05/2010 10:25 PM EDT) Ab Screen Interp Negative [facility] Expires at [id number] on: [id number] [facility] Blood specimen (specimen) 02/05/2010 10:25 PM EDT 02/05/2010 10:40 PM EDT Ori Whitfield MD BLOOD BANK LAB ORDER SETH Performing Organization Address [facility] de Phone Number [facility] * REFLEX LAB-ABO/RH (02/05/2010 10:25 PM EDT) Pathologist [facility] ABORH Type A Pos PATRIC BRIAN Blood specimen (specimen) 02/05/2010 10:25 PM EDT 02/05/2010 10:40 PM EDT Ori Whitfield MD BLOOD BANK LAB ORDER SETH Performing Organization Address [facility] de Phone Number [facility] * HIV ANTIBODY RAPID TEST (02/05/2010 10:25 PM EDT) Pathologist [facility] HIV Ab/Ag Rapid Non-Reactive Non-React can [facility] Comment:Testing done by [employer] Immunoassay. HIV Comment Negative screening test indicates low risk of HIV exposure. Called by: AMALIA_, Read back by: Betty Iglesias_, Date/Time:09/10 23:24_. [facility] Blood specimen (specimen) 02/05/2010 10:25 PM [...] on filedocumented in this encounter Care Teams Passenger Car Cleaning Supervisor Relationship Specialty Start Date End Date Macey Foster APRN [facility] [address] [place] [address] PCP - General 03/26/10 05/18/22 documented as of this encounter
--- OUTSIDE RECORDS SUMMARY | 2024-05-16 10:19 | XMS_ITS | Encounter Summary ---
Author Organization [facility] [place] [address] Care Team Providers Care Geographic Information System Surveyor Name Role Phone Allison Ragsdale APRN Primary Care Provider [phone] Encounter Details Date Type Department Care Team (Late st Contact Info) Description 04/23/2024 Transcribe Orders eD Incoming Referrals [phone] Allison Ragsdale APRN [address] [place], [place] [id number] Social History Tobacco Use Types Packs/Day Years [...] on filedocumented in this encounter Care Teams Geographic Information System Surveyor Relationship Specialty Start Date End Date Allison Ragsdale APRN [address] [place], [place] [address] PCP - General Family Medicine 04/23/24 documented as of this encounter
--- OUTSIDE RECORDS SUMMARY | 2024-05-16 10:19 | XMS_ITS | Encounter Summary ---
Author Organization [facility] Address [facility] [place] [address] Care Team Providers Care Laundry Laborer Name Role Phone Edi Izaguirre MD Primary Care Provider [phone] Reason for Visit * Reason Comments Establish Care * Consultation (Routine) - Closed Specialty Diagnoses / Procedures Referred By Contac t Referred To Contact Obstetrics and Gynecology Diagnoses S/P hysterectomy Edi Izaguirre MD [address] [place] [address] [facility] [address] [place] [address] Referral ID Status Reason Start Date Expiration Date V isits Requested Visits Authorized [id number] Closed Consult, Test & Treat PCP Updated and/or Approved 05/19/2022 05/19/2023 12 12 Encounter Details Date Type Department Care Team (Late st Contact Info) Description 09/12/2022 9:00 AM EDT Office Visit Obstetrics [place] [address] Ginna Hartley MD [facility] DR OBSTETRICS [place] [address] Endometriosis Social History Tobacco Use Types Packs/Day [...] by: Edi Izaguirre MD [address] [place] [address] Cc: pelvic pain HPI: Taniya Moncada is [...] dull. I havemissed a lot of work. Imogene sucks - pain is not during intercourse, [...] Liver function issues lamictal taking for bipolar Meat Pumper Menses: No LMP recorded. Patient has had [...] Exam: Performed in the presence of a territory manager External female genitalia: normal architecture, no lesions [...] postop pain. She will find a therapistin [place] or [place] and message me for a referral. Discussed also available at but would be a long drive - Discussed with Dr Mata who agrees that she may be a candidate for injection - will refer patient to her to [facility] for this - consider pain specialist if [...] unspecified documented in this encounter Care Teams Laundry Laborer Relationship Specialty Start Date End Date Edi Izaguirre MD [address] [place] [address] PCP - General Family Medicine 05/19/22 04/22/24 documented as of this encounter
--- OUTSIDE RECORDS SUMMARY | 2024-05-16 10:19 | XMS_ITS | Encounter Summary ---
Author Organization [facility] [place] [address] Care Team Providers Care Barking Machine Feeder Name Role Phone Edi Izaguirre MD Primary Care Provider [phone] Encounter Details Date Type Department Care Team (Late st Contact Info) Description 02/05/2010 Orders Only Obstetrics [place] [address] Rashel Raza MD Social History Tobacco Use [...] 10:23 AM EDT) Surgical Pathology Report [id number] ? Location: ; BP16; A The signing [...] in rendering the final pathologic diagnosis. [facility]/06/2010 10:2 3 AM EDT Rashel Raza MD PATHOLOGY/CYTOLOGY O RDERABLES [facility] documented in this encounter Visit Diagnoses Not on filedocumented in this encounter Care Teams Barking Machine Feeder Relationship Specialty Start Date End Date Edi Izaguirre MD [address] [place] [id number] PCP - General Family Medicine 05/19/22 04/22/24 documented as of this encounter
--- OUTSIDE RECORDS SUMMARY | 2024-05-16 10:19 | XMS_ITS | Encounter Summary ---
[place] [address] Care Team Providers Care Pegger Name Role Phone Macey Foster APRN Primary Care Provider [phone] Encounter Details Date Type Department Care Team (Late st Contact Info) Description 10/03/2020 Telephone Obstetrics [place] [id number] Georgette George Social History Tobacco Use Types [...] on filedocumented in this encounter Care Teams Pegger Relationship Specialty Start Date End Date Macey Foster APRN [facility] [address] [place] [address] PCP - General 03/26/10 05/18/22 documented as of this encounter
--- OUTSIDE RECORDS SUMMARY | 2024-05-16 10:19 | XMS_ITS | Encounter Summary ---
Author Organization [facility] [place] [address] Care Team Providers Care Assistant Track And Field Coach Name Role Phone Macey Foster APRN Primary Care Provider [phone] Encounter Details Date Type Department Care Team (Late st Contact Info) Description 10/02/2020 Telephone Obstetrics and Gynecology at [facility] [place] [place] [id number] Susan Parrish, RN Social History Tobacco Use [...] Patient requests communication be at this #: [phone] Ultrasound Appointment: (to be scheduled prior to the provider appt): TBD Provider Appointment: TBD Financial information discussed with patient: Yes Patient educated on requirements for termination at [facility]: Labs: Ordered Ultrasound: Ordered Counseling Appointment: TBD Procedure Appointments: TBD Having Designated Rag Baler: N/A Staying local for OR procedure: N/A Information sent to Patient Strip Deburrer: Yes * Telephone Encounter - Susan Parrish [...] cycle documented in this encounter Care Teams Assistant Track And Field Coach Relationship Specialty Start Date End Date Macey Foster APRN [facility] [address] [place] [address] PCP - General 03/26/10 05/18/22 documented as of this encounter
--- OUTSIDE RECORDS SUMMARY | 2024-05-16 10:19 | XMS_ITS | Clinical Summary ---
Author Organization [facility] Address [facility] [place] [address] Care Team Providers Care Dietary Service Aide Name Role Phone Allison Ragsdale APRN Primary Care Provider [phone] Allergies Active Allergy Reactions Criticality Noted Date [...] Department Care Team Description 04/23/2024 Transcribe Orders [facility] Incoming Referrals [phone] Allison Ragsdale APRN from Last 3 Months [...] 11:00 PM EDT HIV SCREEN, 4TH GENERATION ([facility]) STAT 02/05/2010 10:25 PM EDT from Last 3 Months or Most Recently Relevant to Health Maintenance Results * HEPATITIS C ANTIBODY (02/05/2010 11:00 PM EDT) Hepatitis C Antibody Negative Negative [facility] Blood specimen (specimen) 02/05/2010 11:00 PM EDT 02/06/2010 9:30 AM EDT Ori Whitfield MD CHEMISTRY ORDERABLES [facility] * HIV ANTIBODY RAPID TEST (02/05/2010 10:25 PM EDT) HIV Ab/Ag Rapid Non-Reactive Non-React can [facility] Comment:[facility] done by [facility] Immuno[facility]. HIV Comment Negative screening test indicates low risk of HIV exposure. Called by: AMALIA_, Read back by: Betty Iglesias_, Date/Time:09/10 23:24_. [facility] Blood specimen (specimen) 02/05/2010 10:25 PM EDT 02/05/2010 11:07 PM EDT Ori Whitfield MD CHEMISTRY ORDERABLES [facility] from Last 3 Months or Most Recently Relevant to Health Maintenance Care Teams Dietary Service Aide Relationship Specialty Start Date End Date Allison Ragsdale APRN [address] [place] [address] PCP - General Family Medicine 04/23/24
--- OUTSIDE RECORDS SUMMARY | 2024-05-16 10:19 | XMS_ITS | Encounter Summary ---
Author Organization [facility] [place] [address] Care Team Providers Care Market Research Senior Project Manager Name Role Phone Edi Izaguirre MD Primary Care Provider [phone] Encounter Details Date Type Department Care Team [...] on filedocumented in this encounter Care Teams Market Research Senior Project Manager Relationship Specialty Start Date End Date Edi Izaguirre MD [address] [place] [address] PCP - General Family Medicine 05/19/22 04/22/24 documented as of this encounter
--- OUTSIDE RECORDS SUMMARY | 2024-05-16 10:19 | XMS_ITS | Encounter Summary ---
[place] [address] Care Team Providers Care Validation Specialist Name Role Phone Edi Izaguirre MD Primary Care Provider Reason for Referral * Consultation (Routine) - Closed Specialty Diagnoses / Procedures Referred By Contaaliyah t Referred To Contact Obstetrics and Gynecology Diagnoses S/P hysterectomy Edi Izaguirre MD [address] [place] [address] [facility] [employer] [address] [place] [phone] Referral ID Status Reason Start Date Expiration Date V isits Requested Visits Authorized [id number] Closed Consult, Test & Treat PCP Updated and/or Approved 05/19/2022 05/19/2023 12 12 Encounter Details Date Type Department Care Team (Late st Contact Info) Description 05/19/2022 Transcribe Orders eD Incoming Referrals [phone] Edi Izaguirre MD [address] [place] [address] S/P hysterectomy Social History Tobacco Use Types Packs/Day Years Used Date Smoking Tobacco: Never Assessed Sex and Gender Information Value Date Recorded Sex Assigned at Not on file Gender Identity Not on file Sexual Orientation Not on file documented as of this encounter Plan of Treatment Scheduled Referrals Name Type Priority Associated Diagnoses Orde r Schedule Referral to [facility] Outpatient Referral Routine S/p hysterectomy Ordered: 05/19/2022 documented as of this encounter Visit Diagnoses Diagnosis S/P hysterectomy Acquired absence of both cervix and uterus documented in this encounter Care Teams Validation Specialist Relationship Specialty Start Date End Date Edi Izaguirre MD [address] [place] [address] PCP - General Family Medicine 05/19/22 04/22/24 documented as of this encounter
[2024-05-16] MEDS: oxyCODONE 5 MG TAB PO (10:32)
[2024-05-16] MEDS: Dexamethasone 10 MG/ML VIAL IVP (10:33)
[2024-05-16] MEDS: Ketorolac 30 MG/ML VIAL IM (10:33)
[2024-05-16] MEDS: Acetaminophen 500 MG TAB 1000 MG PO (10:33)
[2024-05-16] MEDS: Lidocaine 5% Patch 1 PATCH TP (10:36)
== END 2024-05-16 10:50 | disposition home or self-care (01) ==
PROVIDERS: Emergency Provider Physician Assistant; PCP Family Medicine
DX: M54.50 Low back pain, unspecified (principal); M54.16 Radiculopathy, lumbar region
CPT/HCPCS: 96372; 96374; 99284; J1100; J1885

== ENCOUNTER 2024-05-23 01:30 | Outpatient (CLI) | payer MEDICAID, SELFPAY ==
--- OUTSIDE RECORDS SUMMARY | 2024-05-06 00:34 | XMS_ITS | Encounter Summary ---
[place] [address] Care Team Providers Care Judge'S Clerk Name Role Phone Edi Izaguirre MD Primary Care Provider [phone] Reason for Referral * Consultation (Routine) - Closed Specialty Diagnoses / Procedures Referred By Contaaliyah t Referred To Contact Obstetrics and Gynecology Diagnoses S/P hysterectomy Edi Izaguirre MD [address] [place] [address] [facility] [address] [place] [id number] Referral ID Status Reason Start Date Expiration Date V isits Requested Visits Authorized [id number] Closed Consult, Test & Treat PCP Updated and/or Approved 05/19/2022 05/19/2023 12 12 Encounter Details Date Type Department Care Team (Late st Contact Info) Description 05/19/2022 Transcribe Orders eD Incoming Referrals [phone] Edi Izaguirre MD [address] [place] [id number] S/P hysterectomy Social History Tobacco Use Types Packs/Day Years Used Date Smoking Tobacco: Never Assessed Sex and Gender Information Value Date Recorded Sex Assigned at Not on file Gender Identity Not on file Sexual Orientation Not on file documented as of this encounter Plan of Treatment Scheduled Referrals Name Type Priority Associated Diagnoses Orde r Schedule Referral to Ob-Vessel Builder Outpatient Referral Routine S/p hysterectomy Ordered: 05/19/2022 documented as of this encounter Visit Diagnoses Diagnosis S/P hysterectomy Acquired absence of both cervix and uterus documented in this encounter Care Teams Judge'S Clerk Relationship Specialty Start Date End Date Edi Izaguirre MD [address] [place] [address] PCP - General Family Medicine 05/19/22 04/22/24 documented as of this encounter
--- OUTSIDE RECORDS SUMMARY | 2024-05-06 00:34 | XMS_ITS | Encounter Summary ---
Author Organization [facility] Edwin ferrer [address] Care Team Providers Care Patient Financial Services Coordinator Name Role Phone Macey Foster APRN Primary Care Provider [phone] Encounter Details Date Type Department Care Team (Late st Contact Info) Description 02/05/2010 Orders Only Lab [facility] [place] [phone] Ori Whitfield MD Social History Tobacco Use Types Packs/Day Years Used Date Smoking Tobacco: Never Assessed Sex and Gender Information Value Date Recorded Sex Assigned at Not on file Gender Identity Not on file Sexual Orientation Not on file documented as of this encounter Plan of Treatment Not on file documented as of this encounter Procedures Procedure Name Priority Date/Time Associated Diagnosis Comments BLOOD GAS ARTERIAL CORD Routine 02/06/2010 11:54 PM EDT BLOOD GAS VENOUS CORD Routine 02/06/2010 11:54 PM EDT SURGICAL PATHOLOGY REPORT Routine 02/06/2010 10:23 AM EDT HEPATITIS C ANTIBODY Routine 02/05/2010 11:00 PM EDT RAPID DRUG SCREEN W/O CONFIRMATION, URINE STAT 02/05/2010 10:40 PM EDT HIV SCREEN, 4TH GENERATION ([facility]) STAT 02/05/2010 10:25 PM EDT DIFFERENTIAL, AUTOMATED STAT 02/05/2010 10:25 PM EDT ABO/RH TYPING STAT 02/05/2010 10:25 PM EDT CBC (WITH DIFF) STAT 02/05/2010 10:25 PM EDT ANTIBODY SCREEN STAT 02/05/2010 10:25 PM EDT documented in this encounter Results * REFLEX LAB-BLOOD GAS, ARTERIAL, CORD (02/06/2010 11:54 PM EDT) pH, Cord Arterial 7.33 CERNER MILLENNIUM pCO2, Cord Arterial 43 mmHg CERNER MILLENNIUM pO2, Cord Arterial 19 mmHg CERNER MILLENNIUM Base Excess, Cord Arterial -4.0 mmol/L CERNER MILLENNIUM O2HB, Cord Arterial 32.6 % CERNER MILLENNIUM Blood Gas Source Cord Arterial CERNER MILLENNIUM Blood specimen (specimen) 02/06/2010 11:54 PM EDT 02/06/2010 11:54 PM EDT Ori Whitfield MD CHEMISTRY ORDERABLES [facility] [employer] * REFLEX LAB-BLOOD GAS, VENOUS, CORD (02/06/2010 11:54 PM EDT) pH, Cord Venous 7.35 CERNER MILLENNIUM pCO2, Cord Venous 43 mmHg CERNER MILLENNIUM pO2, Cord Venous 27 mmHg CERNER MILLENNIUM Base Excess, Cord Venous -2.6 mmol/L CERNER MILLENNIUM O2HB, Cord Venous 56.4 % CERNER MILLENNIUM Blood Gas Source Cord Venous CERNER MILLENNIUM Blood specimen (specimen) 02/06/2010 11:54 PM EDT 02/06/2010 11:54 PM EDT Ori Whitfield MD CHEMISTRY ORDERABLES [facility] * PATHOLOGY SURGICAL PATHOLOGY FINAL REPORT (02/06/2010 10:23 AM EDT) Surgical Pathology Report ? [facility] ? Provider: ?? EMILE RAZA ? Pt. Name: ?? TANIYA JOHNSON ? Acc #: ?[id number] ?Pt. ? Col Date: ?? 02/06/2010 ? /Sex: ?1985,(24 years),Female ? Rec Date: ?? 02/07/2010 ? LOC: ?BP ? SURGICAL PATHOLOGY ? ---Pathologic Diagnosis--- ? Third trimester placenta, cord and membranes: ? Negative for chorioamnionitis or funisitis. ? Chorangioma present (3.5 cm diameter) ? Two small maternal hemorrhages present (2ML.) ? CR-0 ? 02/08/10 ? KO ? 02/08/10 Verified by: ? Louisa Jimenez MD ? Pathologist ? (Electronic Signature) ? The attending pathologist whose signature appears on this report has ? reviewed all diagnostic slides and has edited the gross and/or ? microscopic portion of the report in rendering the final pathologic ? diagnosis. ? ---Microscopic Description--- ? Slides reviewed, microscopic description not recorded. ? ---Gross Description--- ? Labeled/Fixative: ? Labeled with the patient's name, fresh. ? Qty/Size/Weight: ?Single, 22.0 x 17.0 x 4.0 cm, 506 g. ? Tissue Description: ?? Discoid bowers placenta. ?Membranes: ? Napoles-pink, slightly cloudy. ?Cord: ?35.5 x 1.3 cm; three vessels; eccentric insertion. ? Surface: ? Purple and clear. ?Maternal Surface: ??Intact with moderate calcifications. ?Parenchyma: ?The specimen is serially sectioned at 0.5-cm to ? 1.0-cm intervals. ??Sections show a spongy, red ? parenchyma with two napoles-red, laminated lesions, averaging 1.5 cm. ??There is ? also a 3.5 x 3.5 x 3.5-cm, peripheral, well-circumscribed, red nodule. ? Sections/Processing : ??Sections are submitted as follows: ??(1) membrane ? roll; (2) proximal and distal cord; (3) ? surface; (4) maternal surface; (5) small laminated lesion; (6-8) large ? peripheral lesion. ??(R8) ??aje/SNS ? ---Clinical Information--- ? Specimen Submitted: ? A - Placenta: ? [facility] ? Provider: ?? EMILE RAZA ? Pt. Name: ?? TANIYA JOHNSON ? Acc #: ?[id number] ?Pt. ? Col Date: ?? 02/06/2010 ? /Sex: ?1985,(24 years),Female ? Rec Date: ?? 02/07/2010 ? LOC: ?BP ? SURGICAL PATHOLOGY ? Clinical History: ? Full-term vaginal delivery, GBS negative. ??Mother on methadone ? Clinical Diagnosis: ? Not provided [facility] 02/06/2010 10:2 3 AM EDT Emile Raza MD PATHOLOGY/CYTOLOGY O RDERABLES Performing Organization Address [facility] de Phone Number [facility] * HEPATITIS C ANTIBODY (02/05/2010 11:00 PM EDT) Pathologist [facility] Hepatitis C Antibody Negative Negative [facility] Blood specimen (specimen) 02/05/2010 11:00 PM EDT 02/06/2010 9:30 AM EDT Ori Whitfield MD CHEMISTRY ORDERABLES Performing Organization Address [facility] de Phone Number [facility] * TOXICOLOGY SCREEN, URINE (02/05/2010 10:40 PM EDT) U SYLVAIN Screen Urine drug of abuse results: ?Methadone Presumptive Positive_ ?Benzodiazepines Negative ??Cocaine metabolites Negative ? Amphetamines Negative Marijuana metabolites Negative ?Opiates Negative ? Barbiturates Negative ? Tricyclics Negative The urine drug testing device screens for: Amphetamines (AMP), Opiates (OPI), Cocaine metabolite (ENRIQUE), Marijuana metabolites (THC), Benzodiazepines (BZO), Barbiturates (BAR), Methadone (MTD)and Tricyclic antidepressants (TCA). ??The amphetamine screen detects either D-amphetamine or D-methamphetamine abuse. ??Be aware that this is only a QUALITATIVE SCREEN and must be used in conjunction ??with your clinical assessment of the patient. ??Results are NOT routinely confirmed by highly-defined methods, and are therefore reported as presumptive positive screens -such qualitative SCREEN RESULTS CANNOT BE USED FOR MEDICO-LEGAL purposes. ??As with any qualitative drug screening device, there can be occasional false positive readings from similar or dissimilar crossreacting drugs. PATRIC BRIAN Urine specimen (specimen) 02/05/2010 10:40 PM EDT 02/05/2010 10:54 PM EDT Ori Whitfield MD URINE ORDERABLES Performing Organization Address [facility] Co de Phone Number PATRIC BRIAN * REFLEX LAB-ANTIBODY SCREEN (02/05/2010 10:25 PM EDT) Ab Screen Interp Negative [facility] Expires at [id number] on: [id number] [facility] Blood specimen (specimen) 02/05/2010 10:25 PM EDT 02/05/2010 10:40 PM EDT Ori Whitfield MD BLOOD BANK LAB ORDER SETH Performing Organization Address [facility] de Phone Number [facility] * REFLEX LAB-ABO/RH (02/05/2010 10:25 PM EDT) Pathologist [facility] ABORH Type A Pos PATRIC BRIAN Blood specimen (specimen) 02/05/2010 10:25 PM EDT 02/05/2010 10:40 PM EDT Ori Whitfield MD BLOOD BANK LAB ORDER SETH Performing Organization Address [facility] de Phone Number [facility] * HIV ANTIBODY RAPID TEST (02/05/2010 10:25 PM EDT) Pathologist [facility] HIV Ab/Ag Rapid Non-Reactive Non-React can [facility] Comment:Testing done by [employer] me Immunoassay. HIV Comment Negative screening test indicates low risk of HIV exposure. Called by: AMALIA_, Read back by: Betty Iglesias_, Date/Time:09/10 23:24_. [facility] Blood specimen (specimen) 02/05/2010 10:25 PM EDT 02/05/2010 11:07 PM EDT Ori Whitfield MD CHEMISTRY ORDERABLES [facility] * (ABNORMAL) REFLEX LAB-A-DIFF (02/05/2010 10:25 PM EDT) Neutrophil % 64.8 34.0 - 71.0 % CERNER MILLENNIUM Neutrophil Absolute 6.36(H) 1.50 - 6.30 x10(3)/mc L CERNER MILLENNIUM Lymph % 25.8 19.0 - 53.0 % CERNER MILLENNIUM Lymphocytes Abs 2.5 1.0 - 3.6 x10(3)/mc L CERNER MILLENNIUM Monocyte % 8.0 4.0 - 13.0 % CERNER MILLENNIUM Monocyte Abs 0.8 0.2 - 1.0 x10(3)/mc L CERNER MILLENNIUM Eos % 0.8 0.0 - 7.0 % CERNER MILLENNIUM Eosinophils Abs 0.1 0.0 - 0.5 x10(3)/mc L CERNER MILLENNIUM Basophil % 0.2 0.0 - 2.0 % CERNER MILLENNIUM Baso Absolute 0.0 0.0 - 0.2 x10(3)/mc L CERNER MILLENNIUM Immature Gran % 0.40 0.00 - 0.66 % CERNER MILLENNIUM Comment: Immature granulocytes(IG's)percentage and absolute count will include metamyelocytes, myelocytes, and promyelocytes. Blood smears from CBC's yielding IG's will be scanned manually for concordance. If this scan disagrees with the automated IG or if promyelocytes are noted, a manual differential will be performed. Immature Gran Absolute 0.04 0.00 - 0.05 x10(3)/mc L CERNER MILLENNIUM Blood specimen (specimen) 02/05/2010 10:25 PM EDT 02/05/2010 10:41 PM EDT Ori Whitfield MD HEMATOLOGY ORDERABLE S PATRIC BRIAN * CBC (02/05/2010 10:25 PM EDT) White Blood Cell 9.8 4.0 - 10.0 x10(3)/mcL CERNER MILLENNIUM Red Blood Cell 4.18 3.93 - 5.22 x10(6)/mcL CERNER MILLENNIUM Hemoglobin 12.2 11.2 - 15.7 gm/dL CERNER MILLENNIUM Hematocrit 35.9 34.0 - 45.0 % CERNER MILLENNIUM Mean Cell Volume 85.9 79.0 - 94.0 fL CERNER MILLENNIUM Mean Cell Hemoglobin 29.2 26.6 - 32.2 pg CERNER MILLENNIUM Mean Cell Hemoglobin Concentration 34.0 32.0 - 36.5 gm/dL CERNER MILLENNIUM Platelet 180 145 - 370 x10(3)/mcL CERNER MILLENNIUM RDW Standard Deviation 42.0 35.0 - 46.0 fL CERNER MILLENNIUM RDW coefficient of variation 13.6 10.9 - 14.4 % CERNER MILLENNIUM Mean Platelet Volume 11.2 9.0 - 12.0 fL CERNER MILLENNIUM Blood specimen (specimen) 02/05/2010 10:25 PM EDT 02/05/2010 10:41 PM EDT Ori Whitfield MD HEMATOLOGY ORDERABLE S PATRIC BRIAN documented in this encounter Visit Diagnoses Not on filedocumented in this encounter Care Teams Patient Financial Services Coordinator Relationship Specialty Start Date End Date Macey Foster APRN [facility] [address] [place] [address] PCP - General 03/26/10 05/18/22 documented as of this encounter
--- OUTSIDE RECORDS SUMMARY | 2024-05-06 00:34 | XMS_ITS | Continuity of Care Document ---
Author Organization [facility] Address [address] [place] [address] Care Team Providers Care Professor Of Geography Name Role Phone LUCIA CROOKS Sherine Primary Care Physician [phone] Encounter [facility] FIN NBR [id number] Date(s): 04/06/24 - 04/06/24 [facility] [address] [place] [address]- Discharge Disposition: Home Allergies, Adverse Reactions, Alerts No Known Medication Allergies Assessment and Plan Future Scheduled Tests Radiology* MRI Spine Cervical w/o Contrast 03/29/24 * MRI Spine Lumbar w/o Contrast 03/29/24 Medications atomoxetine 25 mg oral capsule 25 mg = 1 cap, Oral, every morning, 0 Refill(s) Start Date: 02/12/24 Status: Ordered DULoxetine 30 mg =, Oral, Daily, 0 Refill(s) Start Date: 02/12/24 Status: Ordered lamoTRIgine 200 mg =, Oral, Daily, 0 Refill(s) Start Date: 02/12/24 Status: Ordered Percocet 5/325 1 tab, Oral, BID, PRN as needed for pain, severe pain, 0 Refill(s) Start Date: 02/12/24 Status: Ordered SEROquel 25 mg oral tablet 25 mg = 1 tab, Oral, Daily, at bedtime, 0 Refill(s) Start Date: 02/12/24 Status: Ordered Valium 5 mg oral tablet 5 mg = 1 tab, Oral, at bedtime for sleep, 0 Refill(s) Start Date: 02/12/24 Status: Ordered Problem List Condition Confirmation Course Effective Dates Status H ealt Status Informant Attention deficit hyperactivity disorder Confirmed Active Bipolar disorder Confirmed Active Borderline personality disorder Confirmed Active Chronic pain syndrome Confirmed Active Developmental disorder Confirmed Active Generalized osteoarthritis Confirmed Active Obsessive compulsive disorder Confirmed Active Post traumatic stress disorder Confirmed Active Social History Social History Type Response Tobacco Tobacco use status u nknown Tobacco Use:. Sex Female Sex Representation Female (finding) Patient Care team information Care Team Personnel Name: LUCIA CROOKS Position: No Access Member Role: Primary Care Physician Address: [place] [address]- Care Team Related Persons Name: VERONICA JOHNSON Insurance Providers Guarantor name: ANUP Dominique [facility] Plan Information #: 1 Payer: SELF PAY Member Number: NA Policy Number: NA
--- OUTSIDE RECORDS SUMMARY | 2024-05-06 00:34 | XMS_ITS | Encounter Summary ---
[facility] Organization [facility] [place] [address] Care Team Providers Care Power Generation Technician Name Role Phone Edi Izaguirre MD Primary Care Provider [phone] Encounter Details Date Type Department Care Team (Latest Contact Info) Description 09/12/2022 Travel Social History Tobacco Use Types Packs/Day Years Used Date Smoking Tobacco: Never Smokeless Tobacco: Never Sex and Gender Information Value Date Recorded Sex Assigned at Not on file Gender Identity Not on file Sexual Orientation Not on file documented as of this encounter Plan of Treatment Not on file documented as of this encounter Visit Diagnoses Not on filedocumented in this encounter Care Teams Power Generation Technician Relationship Specialty Start Date End Date Edi Izaguirre MD [address] [place] [address] PCP - General Family Medicine 05/19/22 04/22/24 documented as of this encounter
--- OUTSIDE RECORDS SUMMARY | 2024-05-06 00:34 | XMS_ITS | Encounter Summary ---
Author Organization [facility] Address [facility] [place] [address] Care Team Providers Care Rental Management Trainee Name Role Phone Edi Izaguirre MD Primary Care Provider [phone] Reason for Visit * Reason Comments Establish Care * Consultation (Routine) - Closed Specialty Diagnoses / Procedures Referred By Contac t Referred To Contact Obstetrics and Gynecology Diagnoses S/P hysterectomy Edi Izaguirre MD [address] [place] [address] [facility] [employer] [place] [address] [place] [address] Referral ID Status Reason Start Date Expiration Date V isits Requested Visits Authorized [id number] Closed Consult, Test & Treat PCP Updated and/or Approved 05/19/2022 05/19/2023 12 12 Encounter Details Date Type Department Care Team (Late st Contact Info) Description 09/12/2022 9:00 AM EDT Office Visit Obstetrics [place] [address] Ginna Hartley MD [facility] [address] [place] [address] Endometriosis Social History Tobacco Use Types Packs/Day Years Used Date Smoking Tobacco: Never Smokeless Tobacco: Never Tobacco Cessation:Counseling Given: Not Answered Sex and Gender Information Value Date Recorded Sex Assigned at Not on file Gender Identity Not on file Sexual Orientation Not on file documented as of this encounter Last Filed Vital Signs Vital Sign Reading Time Taken Comments Blood Pressure 126/71 09/12/2022 9:22 AM EDT Pulse 92 09/12/2022 9:22 AM EDT Temperature 36.6 ??C (97.9 ??F) 09/12/2022 9:22 AM ED T Respiratory Rate 18 09/12/2022 9:22 AM EDT Oxygen Saturation 97% 09/12/2022 9:22 AM EDT Inhaled Oxygen Concentration - - Weight 69.9 kg (154 lb) 09/12/2022 9:22 AM EDT Height 162.6 cm (5' 4) 09/12/2022 9:22 AM EDT Body Mass Index 26.43 09/12/2022 9:22 AM EDT documented in this encounter Progress Notes * Ginna Hartley MD - 09/12/2022 9:00 AM EDT Images from the original note were not included. 09/12/22 Referred by: Edi Izaguirre MD [address] [place] [address] Cc: pelvic pain HPI: Taniya Moncada is a 36 y.o. female presenting for S/p hysterectomy, 2nd opinion Per chart review: - had ectopic 09/22, tx'd by laparosocpy, then had persistent LLQ pelvic pain, not helped by IUD despite amenorrhea. Underwent LAVH last fall03/27/22 Path: focal adenomyosis 3 wks postop had intercourse, then BRBPV, urgently evaluated, taken to OR for EUA, found vaginal cuff partially dehisced with arterial bleeding but no defect into the peritoneum, repaired vaginally with good hemostasis. Subsequent ED visit for dizziness, then another for VB that self resolved and xfusion PRBC. Postop visit notes well healing cuff on exam. Per PCP notes pt requesting referral to to ensure that bleeding does not recur. Today, patient presents with Aryan, and relates the following history: I found out I was with something, and it was an ectopic . Confused bc she passed something (per vagina) and it was a weird shape. Went to [facility] and they thought it was ectopic. Sent to hospital for a shot to treat the ectopic. It did not work, the blood levels kept rising. Was given a 2nd shot, it did work. Was still having a lot of residual pain from this (left side), so tube was removed. After this, the pain was pretty much gone. About 1-1.5 months later, started to feel pain there again. Sometimes dull, sometimes intense, sometimes shooting. A hysterectomy was recommended. She had a hysterectomy, was cleared for sex about 4.5 weeks out. Had sex, severed a major artery, was very close to dying. Since then, the pain hasn't been much better. It's still dull. I havemissed a lot of work. Sigurd sucks - pain is not during intercourse, but it comes back afterwards. Has had checkups since then. 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 From the hospital they let me leave with a v low blood level. I had to have a transfusion. When theydid the procedure after the hemorrhage, the doctor rassured that the repair was very strong. Despite that, afraid of lifting too much or intercourse. Since then Relief of left sided pain after hyst? Briefly, maybe bc was so focused on the other pain. Hyst was the day before Tgiving and hemorrhage was in April 19. Pain at other times besides after intercourse? Yes. Initially it was localized to one spot on the left side. Left side is still prominent but now it has moved over to the center. It almost feels likea contraction. Sometimes will get a sharp pain, does not seem to be provoked. When busy at work, seems like she will be fine. Sometimes will notice the pain when not busy. Movement of walking joltsthe left side and causes worsened pain. Relationship with BM or eating? Does have stomach issues, has had tons of tests and nothing - this is a different pain. Does not seem to be related to gas or flatus or BM. No relationship to full bladder or urination. VB? Did have it again after dehiscence. No bleeding since new years day (4+ months). Has been able to have sex wtihout bleeding and pain returns after sex. CT scan has been done. Has not had an US since the surgery Taking? 2 advil, twice per day. Tylenol - very occasional. Does not help. hwne needed her dr has rx'd dilaudid or oxycodone. Gabapentin? Was on it about 3 months ago - did not seem to help. Side effects, did not like. Drowsiness and weight gain. 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 Patient has had a hysterectomy. Hx endometriosis, multiple laparoscopies Patient Active Problem List Diagnosis Code ??? Endometriosis N80.9 ??? Bipolar disorder F31.9 Past Medical History: Diagnosis Date ??? Dysmenorrhea endometriosis Allergies Allergen Reactions ??? Amoxicillin Trihydrate CIS - Hives Outpatient Medications Marked as Taking for the 09/12/22 encounter (Office Visit) with Ginna Hartley MD Medication Sig Dispense Refill ??? lamoTRIgine (LaMICtal) 150 mg tablet TAKE ONE TABLET BY MOUTH EVERY DAY MONITOR FOR RASH O: Patient Vitals for the past 24 hrs: Temp Pulse Resp BP SpO2 09/12/22 0922 36.6 ??C (97.9 ??F) 92 18 126/71 97 % Physical Exam: On exam she appeared in good health and in no acute distress. Neurological: She is alert and oriented to person, place, and time. Psychiatric: She has a normal mood and affect. Head was grossly normocephalic. The abdomen was soft, mildly tender to deep palpation in the LLQ, without guarding or rebound. No masses or organomegaly. Pelvic Exam: Performed in the presence of a bumper machine operator External female genitalia: normal architecture, no lesions Normal urethra Vagina: well estrogenized, no abnormal discharge or blood in the vaginal vault. Vaginal cuff intactto inspection and palpation. Tenderness noted on palpation of midline to left apex of vaginal cuff. Cervix: absent Uterus: absent Adnexa: Left sided tenderness, no masses Anus and perineum: no lesions Lab/Radiology Results: CT 04/30/22 Assessment and Plan: Taniya Moncada is a 36 y.o. female P1, with chronic midline and left sided pelvic pain dating back to ectopic last fall, then LAVH in March, repair of vaginal cuff bleed after intercoursein April, requiring PRBC transfusion. No further VB since May 04. Prior history of dysmenorrhea and endometriosis. Discussed exam finding normally healed vaginal cuff with tenderness. CT report reviewed finding no acute pelvic process, making surgical injury much less likely. I will request and review images. [ ] request CT images May 14 or most recent Discussed DDx: 1) Musculoskeletal/nerve pain post surgery; which she is at risk for with hx endometriosis / pelvicpain 2) Endometriosis in the LLQ / vaginal cuff; supported by the fact that patient has noted a cyclic worsening Recommend multi-pronged approach to this pain - continuous noreithindrone to suppress any remaining endometriosis - celebrex as NSAID - to dc if stomach upset occurs - neuropathic pain med - patient has tried gabapentin and did not like side effects - does not wishto restart at this time - Pelvic floor PT - discussed the importance of this for MSK postop pain. She will find a therapistin [facility] and message me for a referral. Discussed also available at but would be a long drive - Discussed with Dr Mata who agrees that she may be a candidate for injection - will refer patient to her to [facility] for this - consider pain specialist if the above is not working - Mental health- discussed importance of mental health care when chronic painis present - she already has good care here (psychiatrist + therapist) RTO: next available with Dr Mata 3-4 mos with me to follow up pelvic pain Total time spent day of service on chart review, disease discussion and therapeutic counseling, as well as, documentation and coordination of care: 60 min Ginna Hartley MD documented in this encounter Plan of Treatment Not on file documented as of this encounter Visit Diagnoses Diagnosis Endometriosis Endometriosis, site unspecified documented in this encounter Care Teams Rental Management Trainee Relationship Specialty Start Date End Date Edi Izaguirre MD [address] [place] [address] PCP - General Family Medicine 05/19/22 04/22/24 documented as of this encounter
--- OUTSIDE RECORDS SUMMARY | 2024-05-06 00:34 | XMS_ITS | Continuity of Care Document ---
Author Organization [facility] Ambulatory Clinics Address [address] [place] [address] Care Team Providers Care Scenery Builder Name Role Phone LUCIA CROOKS Sherine Primary Care Physician Encounter [facility] FIN NBR [id number] Date(s): 04/06/24 - 04/06/24 [facility] Ambulatory Clinics [address] [place] [address]- Discharge Disposition: Home Allergies, Adverse Reactions, Alerts [...] Access Member Role: Primary Care Physician Address: [place] [address]- Care Team Related Persons Name: VERONICA JOHNSON Insurance Providers Guarantor name: ANUP Dominique [facility] Plan Information #: 1 Payer: SELF PAY Member Number: NA Policy Number: NA
--- OUTSIDE RECORDS SUMMARY | 2024-05-06 00:34 | XMS_ITS | Encounter Summary ---
Author Organization [facility] [place] [address] Care Team Providers Care Color Paste Mixer Name Role Phone Edi Izaguirre MD Primary Care Provider [phone] Encounter Details Date Type Department Care Team (Late st Contact Info) Description 02/05/2010 Orders Only Obstetrics [place] [address] Rashel Raza MD Social History Tobacco Use Types Packs/Day Years Used Date Smoking Tobacco: Never Assessed Sex and Gender Information Value Date Recorded Sex Assigned at Not on file Gender Identity Not on file Sexual Orientation Not on file documented as of this encounter Plan of Treatment Not on file documented as of this encounter Procedures Procedure Name Priority Date/Time Associated Diagnosis Comments SURGICAL PATHOLOGY REPORT Routine 02/06/2010 10:23 AM EDT documented in this encounter Results * Surgical Pathology Report (02/06/2010 10:23 AM EDT) Surgical Pathology Report [id number] ? Location: ; BP16; A The signing pathologist has (i) examined the relevant preparation(s) for the specimen(s) and (ii) rendered or confirmed the diagnosis(es). . ?Pathology Surgical Pathology Final Report Clinical Information Specimen Submitted: A - Placenta: Clinical History: Full-term vaginal delivery, GBS negative. ??Mother on methadone Clinical Diagnosis: Not provided Gross Description Labeled/Fixative: ? Labeled with the patient's name, fresh. Qty/Size/Weight: ?Single, 22.0 x 17.0 x 4.0 cm, 506 g. Tissue Description: ?? Discoid bowers placenta. ?? Membranes: ? Napoles-pink, slightly cloudy. ?? Cord: ?35.5 x 1.3 cm; three vessels; eccentric insertion. ?? Surface: ? Purple and clear. ?? Maternal Surface: ??Intact with moderate calcifications. ?? Parenchyma: ?The specimen is serially sectioned at 0.5-cm to ?1.0-cm intervals. ??Sections show a spongy, red parenchyma with two napoles-red, laminated lesions, averaging 1.5 cm. ??There is also a 3.5 x 3.5 x 3.5-cm, peripheral, well-circumscribed, red nodule. Sections/Processing : ??Sections are submitted as follows: ??(1) membrane ?roll; (2) proximal and distal cord; (3) surface; (4) maternal surface; (5) small laminated lesion; (6-8) large peripheral lesion. ??(R8) aje/SNS Microscopic Description Slides reviewed, microscopic description not recorded. Diagnosis Third trimester placenta, cord and membranes: Negative for chorioamnionitis or funisitis. Chorangioma present (3.5 cm diameter) Two small maternal hemorrhages present (2ML.) CR-0 02/08/10 KO 02/08/10 Verified by: ? Louisa Jimenez MD ?Pathologist ?(Electronic Signature) The attending pathologist whose signature appears on this report has reviewed all diagnostic slides and has edited the gross and/or microscopic portion of the report in rendering the final pathologic diagnosis. [facility] 02/06/2010 10:2 3 AM EDT Rashel Raza MD PATHOLOGY/CYTOLOGY O RDERABLES [facility] documented in this encounter Visit Diagnoses Not on filedocumented in this encounter Care Teams Color Paste Mixer Relationship Specialty Start Date End Date Edi Izaguirre MD [address] [place] [id number] PCP - General Family Medicine 05/19/22 04/22/24 documented as of this encounter
--- OUTSIDE RECORDS SUMMARY | 2024-05-06 00:34 | XMS_ITS | Continuity of Care Document ---
Author Organization [facility] Ambulatory Clinics Address [address] [place] [address] Care Team Providers Care Ampoule Washing Machine Operator Name Role Phone MARIAJOSELEEANNA BasurtoRadha Basurto Primary Care Physician Encounter [facility] FIN NBR [id number] Date(s): 03/29/24 - 03/29/24 [facility] Ambulatory Clinics [address] [place] [address]- Encounter Diagnosis Low back pain(Discharge Diagnosis) - 03/29/24 Lumbar disc herniation(Discharge Diagnosis) - 03/29/24 Discharge Disposition: Home or Self Care Attending Physician: Caroline Arizmendi DO Referring Physician: MIRIAN GARCIA APRN Allergies, Adverse Reactions, Alerts No Known Medication Allergies Medications atomoxetine 25 mg oral capsule 25 [...] Active Post traumatic stress disorder Confirmed Active Vital Signs Most recent to oldest [Reference Range]: 1 Peripheral Pulse Rate [60-100 bpm] 94 bp m (03/29/24 3:32 PM) Respiratory Rate [12-24 br/min] 18 br/mi n (03/29/24 3:32 PM) Blood Pressure [90-120/60-80 mmHg] 117/6 0mmHg (03/29/24 3:32 PM) Mean Arterial Pressure, Cuff [65-140 mmH g] 79 mmHg (03/29/24 3:32 PM) Weight 69.1 kg (03/29/24 3:32 PM) Weight Measured (lbs) 152.339 lb (03/29/24 3:32 PM) Weight Dosing 69.100 kg (03/29/24 3:32 PM) [place] Body Weight Calculated 54.7 kg (03/29/24 3:32 PM) Height 162.56 cm (03/29/24 3:32 PM) Height/Length Measured (inches) 64 inch (03/29/24 3:32 PM) BSA Measured 1.77 m2 (03/29/24 3:32 PM) Body Mass Index 26.15 kg/m2 (03/29/24 3:32 PM) Social History Social History Type Response Tobacco Tobacco use status u nknown Tobacco Use:. Sex Female Sex Representation Female (finding) Patient Care team information Care Team Personnel Name: LUCIA CROOKS Position: No Access Member Role: Primary Care Physician Address: [address] Care Team Related Persons Name: VERONICA JOHNSON Insurance Providers Guarantor name: ANUP JOHNSON Health Plan Information #: 1 Payer: [place] Member Number: [id number] Policy Number: NA Health Plan Information #: 2 Payer: [place] Member Number: [id number] Policy Number: NA
--- OUTSIDE RECORDS SUMMARY | 2024-05-06 00:34 | XMS_ITS | Encounter Summary ---
Author Organization [facility] [place] [address] Care Team Providers Care Printing Machinist Name Role Phone Macey Foster APRN Primary Care Provider [phone] Encounter Details Date Type Department Care Team (Late st Contact Info) Description 10/02/2020 Telephone Obstetrics and Gynecology at [facility] [place] [phone] Susan Parrish, RN Social History Tobacco Use Types Packs/Day Years Used Date Smoking Tobacco: Never Assessed Sex and Gender Information Value Date Recorded Sex Assigned at Not on file Gender Identity Not on file Sexual Orientation Not on file documented as of this encounter Miscellaneous Notes * Telephone Encounter - Susan Parrish, RN - 10/02/2020 10:17 AM EDT S/O: woman calling to inquire about options for terminating . LMP: 4-20-21 Estimated GA: 6W0D Ultrasound yet: NO / YES (date/results): No Blood type: A Pois Quantitative BHCG (date/results):None A/P: options including continuing , medication , and surgical were reviewed and discussed with patient. After carefully considering her options: ( ) Her decision is to terminate the . She states that this decision has been made freely and without Coercion. She opts for: ( ) Surgical AB ( x) Medical AB. Patient requests communication be at this #: [phone] Ultrasound Appointment: (to be scheduled prior to the provider appt): TBD Provider Appointment: TBD Financial information discussed with patient: Yes Patient educated on requirements for termination at [facility]: Labs: Ordered Ultrasound: Ordered Counseling Appointment: TBD Procedure Appointments: TBD Having Designated Hot Worker: N/A Staying local for OR procedure: N/A Information sent to Patient Automotive General Manager: Yes * Telephone Encounter - Susan Parrish RN - 10/02/2020 10:17 AM EDT ----- Message from Laura Velazquez sent at 10/02/2020 9:25 AM EDT ----- Tejas DavisTaniya is wanting to have a termination, she is 5 weeks , her LMP was 08/21. Please call her cell#Kam Tirado documented in this encounter Plan of Treatment Not on file documented as of this encounter Visit Diagnoses Diagnosis Missed period Irregular menstrual cycle documented in this encounter Care Teams Printing Machinist Relationship Specialty Start Date End Date Macey Foster APRN [facility] [address] [place] [address] PCP - General 03/26/10 05/18/22 documented as of this encounter
--- OUTSIDE RECORDS SUMMARY | 2024-05-06 00:34 | XMS_ITS | Encounter Summary ---
[place] [address] Care Team Providers Care Production Broacher Name Role Phone Edi Izaguirre MD Primary Care Provider [phone] Encounter Details Date Type Department Care Team (Late st Contact Info) Description 09/25/2022 Telephone Obstetrics [place] [phone] Kwan oRsa Social History Tobacco Use Types Packs/Day Years [...] on filedocumented in this encounter Care Teams Production Broacher Relationship Specialty Start Date End Date Edi Izaguirre MD [address] [place] [address] PCP - General Family Medicine 05/19/22 04/22/24 documented as of this encounter
--- OUTSIDE RECORDS SUMMARY | 2024-05-06 00:34 | XMS_ITS | Continuity of Care Document ---
Author Organization [facility] Ambulatory Clinics Address [address] [place] [address] Care Team Providers Care City Secretary Name Role Phone LUCIA CROOKS Primary Care Physician [phone] Encounter [facility] FIN NBR [id number] Date(s): 10/28/23 - 10/28/23 [facility] Ambulatory Clinics [address] [place] [address] [place] Discharge Disposition: Home Assessment and Plan Future Appointments Social History Social History Type Response Sex Female Patient Care team information Care Team Personnel Name: LUCIA CROOKS Position: No Access Member Role: Primary Care Physician Address: Address: [id number] [place] [address] Care Team Related Persons Name: VERONICA JOHNSON Address: Home [address] [place] [address] [facility]
--- OUTSIDE RECORDS SUMMARY | 2024-05-06 00:34 | XMS_ITS | Encounter Summary ---
[place] [address] Care Team Providers Care Lead Installer Name Role Phone Macey Foster APRN Primary Care Provider [phone] Encounter Details Date Type Department Care Team (Late st Contact Info) Description 10/03/2020 Telephone Obstetrics [place] [phone] Georgette George Social History Tobacco Use Types Packs/Day Years Used Date Smoking Tobacco: Never Assessed Sex and Gender Information Value Date Recorded Sex Assigned at Not on file Gender Identity Not on file Sexual Orientation Not on file documented as of this encounter Plan of Treatment Not on file documented as of this encounter Visit Diagnoses Not on filedocumented in this encounter Care Teams Lead Installer Relationship Specialty Start Date End Date Macey Foster APRN [facility] [address] [place] [address] PCP - General 03/26/10 05/18/22 documented as of this encounter
--- OUTSIDE RECORDS SUMMARY | 2024-05-06 00:34 | XMS_ITS | Clinical Summary ---
Author Organization [facility] Address [facility] [place] [address] Care Team Providers Care Casualty Underwriter Name Role Phone Allison Ragsdale APRN Primary Care Provider [phone] Allergies Active Allergy Reactions Criticality Noted Date Comments Amoxicillin Trihydrate Medium CIS - Hives Medications Medication Sig Dispensed Refills Start Date End Date Status CIS Free Text Med - prenatals 02/05/2010 Active Additional Information Patient not taking.Reported on 09/12/2022 METHADONE HCL (METHADONE ORAL) 02/05/2010 Active lamoTRIgine (LaMICtal) 150 mg tablet TAKE ONE TABLET BY MOUTH EVERY DAY MONITOR FOR RASH 08/21/2022 Active norethindrone (Aygestin) 5 mg tablet Take 1 tablet by mouth daily. 90 tablet 3 09/12/2022 Active celecoxib (CeleBREX) 100 mg capsule Take 1 capsule by mouth 2 times daily. 180 capsule 3 09/12/2022 Active Active Problems Problem Noted Date Diagnosed Date Endometriosis 09/12/2022 Overview (09/12/2022): Per pt, dx'd by laparoscopy Bipolar disorder 09/12/2022 Encounters Date Type Department Care Team Description 04/23/2024 Transcribe Orders [facility] Incoming Referrals [phone] Allison Ragsdale APRN from Last 3 Months Immunizations Name Administration Dates Next Due Influenza Vaccine, Whole 02/08/2010,06/06/2009 Tdap (Adacel, Boostrix) 02/08/2010 Social History Tobacco Use Types Packs/Day Years Used Date Smoking Tobacco: Never Smokeless Tobacco: Never Tobacco Cessation:Counseling Given: Not Answered Sex and Gender Information Value Date Recorded Sex Assigned at Not on file Gender Identity Not on file Sexual Orientation Not on file Last Filed Vital Signs Vital Sign Reading [...] Mass Index 26.43 09/12/2022 9:22 AM EDT Plan of Treatment Health Maintenance Due Date Last Done Comments Hepatitis B vaccine (0-59 yrs) (1) 11/08/2002 HPV test 11/08/2013 PAP Smear 11/08/2013 Tetanus/Diphtheria/Pertussis Vaccines (2 - Td or Tdap) 02/09/2020 02/08/2010 Breast Cancer Share Decision Needed 2023 Breast Cancer screening 2023 Diabetes Screening (HgbA1C or Glucose) 2023 Covid-19 Vaccine ( season) 2024 Influenza (Flu) vaccine (1 o f 1 - Influenza standard series) 01/03/2024 02/08/2010, 06/06/2009 HIV screen Completed 02/05/2010 Hepatitis C Screening Completed 02/05/2010 Procedures Procedure Name Priority Date/Time Associated Diagnosis Comments HEPATITIS C ANTIBODY Routine 02/05/2010 11:00 PM EDT HIV SCREEN, 4TH GENERATION ([facility]) STAT 02/05/2010 10:25 PM EDT from Last 3 Months or Most Recently Relevant to Health Maintenance Results * HEPATITIS C ANTIBODY (02/05/2010 11:00 PM EDT) Hepatitis C Antibody Negative Negative [facility] Blood specimen (specimen) 02/05/2010 11:00 PM EDT 02/06/2010 9:30 AM EDT Ori Whitfield MD CHEMISTRY ORDERABLES [facility] * HIV ANTIBODY RAPID TEST (02/05/2010 10:25 PM EDT) HIV Ab/Ag Rapid Non-Reactive Non-React can [facility] Comment:Testing done by [employer] me Immunoassay. HIV Comment Negative screening test indicates low risk of HIV exposure. Called by: AMALIA_, Read back by: Betty Iglesias_, Date/Time:09/10 23:24_. PATRIC BRIAN Blood specimen (specimen) 02/05/2010 10:25 PM EDT 02/05/2010 11:07 PM EDT Ori Whitfield MD CHEMISTRY ORDERABLES PATRIC [facility]RIAN from Last 3 Months or Most Recently Relevant to Health Maintenance Care Teams Casualty Underwriter Relationship Specialty Start Date End Date Allison Ragsdale APRN [address] [place] [address] PCP - General Family Medicine 04/23/24
--- OUTSIDE RECORDS SUMMARY | 2024-05-06 00:34 | XMS_ITS | Encounter Summary ---
Author Organization [facility] [place] [address] Care Team Providers Care Digital Media Manager Name Role Phone Allison Ragsdale APRN Primary Care Provider [phone] Encounter Details Date Type Department Care Team (Late st Contact Info) Description 04/23/2024 Transcribe Orders eD Incoming Referrals [phone] Allison Ragsdale APRN [address] [place], [place] [address] Social History Tobacco Use Types Packs/Day Years [...] on filedocumented in this encounter Care Teams Digital Media Manager Relationship Specialty Start Date End Date Allison Ragsdale APRN [address] [place], [place] [address] PCP - General Family Medicine 04/23/24 documented as of this encounter
--- NOTE | 2024-05-23 | DI.MRI_ITS ---
Exam(s) MR CERVICAL SPINE WO EXAM: MR CERVICAL SPINE WO CLINICAL HISTORY: SPINE PAIN RADIATING UP TO HEAD CAUSING HEADACHES, CT SHOWED LIMBUS VETEBRA TECHNIQUE: Multiplanar multisequence MRI of the cervical spine was performed without intravenous con trast. COMPARISON: CT BRAIN W/O CONTRAST from 11/26/2019 FINDINGS: CERVICOMEDULLARY JUNCTION: There is significant cerebellar tonsillar ectopia with peg like caudal ext ension of the cerebellar tonsils approximately 1.8 cm and crowding of foramen magnum. CERVICAL SPINAL CORD: There is no abnormal signal in the cervical spinal cord and no evidence of foca l cord atrophy nor focal cord swelling. There is no evidence of syringomyelia in the cervical spinal cord. OSSEOUS:There are no cervical fractures evident. No significant osseous lesions in the cervical vert ebrae. INDIVIDUAL LEVELS: There are no disc herniations nor central spinal canal stenosis and there is no significant facet art hropathy in the cervical spine. There is no evidence of foraminal stenosis. There are no Luschka lauro int osteophytes. There is a 1.2 cm wide thin (less than 1 mm) membrane within the anterior thecal sac extending caudal ly from C2-3 level down to the visualized upper thoracic spine,. This does not significantly decreas ed the AP measurement of the normal size spinal column. It exhibits CSF intensity both anterior and posterior IMPRESSION: 1. Prominent Chiari 1 malformation/cerebellar tonsillar ectopia. 2. No syringomyelia evident in the cervical spinal cord and partially visualized upper thoracic spina l cord and no evidence of abnormal cord signal, cord atrophy, nor cord swelling. 3. There are no disc herniations nor central canal stenosis nor foraminal stenosis. No significant f acet arthropathy. 4. There is a thin (less than 1 mm) benign-appearing membrane within the anterior thecal sac extendi ng from C2-3 level caudally throughout the length of this study field of view and into the thoracic l evel thecal sac. This is approximately 13 cm wide. DATA REPOSITORY:
--- NOTE | 2024-05-23 | DI.MRI_ITS ---
Exam(s) MR LUMBAR SPINE WO EXAM: MR LUMBAR SPINE WO CLINICAL HISTORY: LOW BACK AND LEG PAIN, MRI PRIOR TO INJECTION, M54.50, INTERVERTEBRAL. TECHNIQUE: Multiplanar multisequence MRI of the Lumbar spine was performed. COMPARISON: CR XR LUMBAR SPINE COMPLETE from 07/29/[address] LUMBAR SPINE WO from 03/22/2024 FINDINGS: Conus medullaris is at normal level. There is no evidence of conus mass nor subjacent clumping of in trathecal nerve roots to suggest arachnoiditis. The distal thecal sac appears unremarkable.There is no evidence of Tarlov intrasacral cysts nor other significant findings within the sacral canal Bones:There are no fractures nor ominous osseous lesions in the lumbar vertebral bodies and visualize d sacrum. With respect to the individual levels... T12-L1: Unremarkable L1-2: Normal disc height and signal. No disc herniation nor central canal stenosis.No foraminal steno sis L2-3: Normal disc height. No disc herniation nor central canal stenosis.No foraminal stenosis.No face t arthropathy. L3-4: There is mild asymmetric height loss on the right side of this disc space. There is asymmetric right-sided annular bulging at this level which mildly flattens the anterior right side of the theca l sac at this level. The asymmetric annular bulging extends into the floor of the exiting right neur al foramen but there does not appear to be significant right-sided foraminal stenosis at this level. Exiting left neural foramen is unremarkable. Facet joints appear unremarkable and there is no signi ficant ligamentum flavum hypertrophy. L4-5: Mild symmetrical disc space narrowing. There is annular bulging and there is a superimposed po sterior central disc herniation which extends posteriorly approximately 8 mm, with herniated disc mat erial appearing to be within the substance of the posterior longitudinal ligament. This disc protrus ion is approximately 1 cm wide. It significantly impresses the anterior thecal sac at this level res ulting in an element of central canal stenosis. The disc protrusion does not extend into the exiting neural foramina. Are string right neural foramina at this level appears unremarkable. Mild annular bulging into the floor of the exiting left neural foramen is noted but without significant left-side d foraminal stenosis. Both facet joints appear unremarkable at this level. L5-S1: Normal disc height and signal. No disc herniation or central canal stenosis evident. No fora sheryl stenosis. There are significant degenerative changes in the left facet joint at this level. R ight facet joint appears unremarkable. Soft tissues: paraspinal soft tissues appear unremarkable. IMPRESSION: 1. At the L4-5 level there is a central posterior disc herniation extending posterior 8 millimeters a nd approximately 10 mm wide. This disc herniation appears to be possibly dissected into the substanc e of the posterior longitudinal ligament. This disc protrusion causes significant compression of the anterior thecal sac at this level resulting in significant central canal stenosis at this level. Th ere is some asymmetric annular bulging in the left exiting neural foramen but no significant foramina l stenosis on either side. Facet joints at this level appear unremarkable. 2. At the L3-4 level there is asymmetric height loss on the right side of the disc space and asymmetr ic right-sided annular bulging as described above, this extending into the floor of the exiting right neural foramen but without significant right-sided foraminal stenosis evident. Facet joints are unr emarkable at this level. 3. There are significant asymmetric degenerative changes in the left facet joint at L5-S1 level. The disc at this level appears unremarkable. DATA REPOSITORY:
--- NOTE | 2024-05-23 14:29 | DI.VRAD_ITS ---
PROCEDURE INFORMATION: Exam: MR Cervical Spine Without Contrast Exam date and time: 05/23/2024 7:37 AM Age: 38 years old Clinical indication: Patient HX: Spine pain radiating up to head causing headaches, CT showed limbus vetebra c5, cervicalgia, m54.2, cervicogenic headache TECHNIQUE: Imaging protocol: Magnetic resonance imaging of the cervical spine without contrast. COMPARISON: CT CERVICAL SPINE WO 04/16/2023 12:47 PM FINDINGS: Bones/joints: Alignment is normal. No significant degenerative change. Spinal cord: No cord signal abnormality. Brain: 1.1 cm tonsillar ectopia below the foramen magnum. Tonsils are pointed inferiorly and touch the posterior arch of C1. Vasculature: Expected flow voids in the vertebral arteries. Soft tissues: Unremarkable IMPRESSION: 1.1 cm tonsillar ectopia below the foramen magnum. Tonsils are pointed inferiorly and touch the posterior arch of C1. This is consistent with Chiari 1. Dictated and Authenticated by: Patrice Castillo MD. Ordering:RADAMES Velazquez MD
== END 2024-05-23 01:50 ==
LOC: DI 01:31
PROVIDERS: PCP Family Medicine; Visit Provider Physical Medicine & Rehabilitation
DX: M51.27 Other intervertebral disc displacement, lumbosacral region (principal)
CPT/HCPCS: 72141; 72148

== ENCOUNTER 2024-08-11 13:11 | Outpatient (CLI) | payer MEDICAID, SELFPAY ==
--- NOTE | 2024-08-11 | DI.MRI_ITS ---
Exam(s) MR THORACIC SPINE WO EXAM: MR THORACIC SPINE WO CLINICAL HISTORY: Chiari malformation, type I, G93.5; ? thoracic spinal cord syrinx. TECHNIQUE: Multiplanar multisequence MRI of the Thoracic spine was performed. COMPARISON: CR XR PORTABLE CHEST AP POST LINE from 02/07/[address] ABDOMEN PELVIS W from 04/29/2022 MR MR CERVICAL SPINE WO from 05/23/2024 MR MR LUMBAR SPINE WO from 05/23/2024 FINDINGS: Bones: The vertebral body heights are well maintained. Alignment is satisfactory. Mild degenerative e ndplate signal changes are seen in the mid and lower thoracic spine. Cord: The thoracic cord is normal size and signal intensity. No intrinsic cord lesion is present. No evidence of a spinal cord syrinx is present. Discs: No disc herniation or bulge is present. No evidence of significant central spinal canal or kimberly ral foraminal stenosis is seen in the thoracic spine. Soft tissues: There is again seen a small cyst in the posterior aspect of the liver. This is unchan ged. IMPRESSION: 1. No evidence of a spinal cord syrinx. There is normal signal and appearance of the spinal cord in the thoracic spine. 2. No significant central spinal canal or neural foraminal stenosis is seen in the thoracic spine. DATA REPOSITORY:
== END 2024-08-11 13:31 ==
LOC: DI 13:11
PROVIDERS: PCP Family Medicine; Visit Provider Physician Assistant Surgical
DX: G93.5 Compression of brain (principal)
CPT/HCPCS: 72146

== ENCOUNTER 2024-08-31 10:12 | Emergency (ER) | payer MEDICAID, SELFPAY ==
[2024-08-31] VITALS (15 sets, daily range): BP systolic 114–164; BP diastolic 46–107; PULSE 70–102; RESP 11–23; TEMP 36.2; O2SAT 98–100
--- NOTE | 2024-08-31 10:35 | W.ED.GENAD ---
Discharge Plan Disposition Patient Disposition: Home Condition: Stable Discharge Details Clinical Impression: Headache Primary Care Provider: Edi Izaguirre ED Provider: Brenda Rowan Home Meds and New Rx's Prescriptions: New hydromorphone 2 mg tablet 2 mg PO Q6H PRN (Reason: pain) Qty: 7 0RF Rx Instructions: Take one tablet every 6 hours as needed for moderate to severe pain No Action ibuprofen 600 mg tablet 600 mg PO Q6H PRN (Reason: pain) Qty: 45 2RF hydromorphone [Dilaudid] 2 mg tablet 2 mg PO Q6H MDD 4 PRN (Reason: pain) Qty: 10 0RF rizatriptan 10 mg tablet See Rx Instructions PO .COMPLEX Qty: 10 5RF Rx Instructions: take 1 tab at onset of headache; if no relief may repeat 1 tab after at least 2 hrs; max = 3 tabs/24 hr PO lamotrigine 100 mg tablet 200 mg PO DAILY atomoxetine 25 mg capsule 25 mg PO DAILY Patient Comments: TAKE 1 CAPSULE BY MOUTH EVERY MORNING Discharge Instructions Instructions: Home Headache Remedies, Headache, Adult ED Additional Instructions: The MRI shows stable presence of the Chiari I malformation. No evidence of bleed or mass. Prescription was sent to the pharmacy on file for you. Please keep your upcoming appointment with neurology. Return to the ER for any worsening headache not relieved by medications, blurry vision double vision, weakness on one side of your body or the other, vomiting or concerns. Follow up with primary care provider in 3-5 days. Return to ED sooner if any worsening or concerns. Please take Tylenol or Ibuprofen with food every 4-6 hours as needed for pain and swelling. Referrals: Edi Izaguirre MD [Primary Care Provider] - 5 days HPI General Mode of arrival: EMS. Date/Time Provider Initiated Documentation: 08/31/24 10:16. Limitations to Documentation: no limitations. Information obtained by: patient, RN notes reviewed and old records reviewed. HPI Narrative: 38-year-old female who presents to the ER with a chief complaint of headache which has been worsening over the last week to a month. She states that it is pressure, she notes throbbing in her right ear. It is in the back of her head and radiates down the back of her neck. She was given 1 g of Tylenol, Zofran 4 mg and 100 mics of fentanyl by EMS prior to arrival. This did little to nothing to relieve her pain. She denies any fever or chills or flulike symptoms. She denies any recent head injuries. However she does state that she does faint with these headache episodes. She has no numbness tingling weakness or confusion. Does have a history of anxiety, mild Tourette's syndrome, ADHD. She is scheduled for an MRI of her brain in 2 days she reports that she cannot wait that long. No sensitivity to light or sound. Does have a history of a Chiari I malformation. Related Data Home Medications ?Medication ?Instructions ?Recorded ?Confirmed lamotrigine 100 mg tablet 200 mg PO DAILY 11/18/21 05/16/24 ibuprofen 600 mg tablet 600 mg PO Q6H PRN pain #45 tabs 10/08/22 05/16/24 rizatriptan 10 mg tablet See Rx Instructions PO .COMPLEX 07/30/23 05/16/24 #10 tabs hydromorphone 2 mg tablet 2 mg PO Q6H PRN pain #10 tabs 12/31/23 05/16/24 (Dilaudid) atomoxetine 25 mg capsule 25 mg PO DAILY 05/16/24 05/16/24 hydromorphone 2 mg tablet 2 mg PO Q6H PRN pain #7 tabs 08/31/24 Previous Rx's ?Medication ?Instructions ?Recorded ibuprofen 600 mg tablet 600 mg PO Q6H PRN pain #45 tabs 10/08/22 rizatriptan 10 mg tablet See Rx Instructions PO .COMPLEX 07/30/23 #10 tabs hydromorphone 2 mg tablet 2 mg PO Q6H PRN pain #10 tabs 12/31/23 (Dilaudid) hydromorphone 2 mg tablet 2 mg PO Q6H PRN pain #7 tabs 08/31/24 Allergies Allergy/AdvReac Type Severity Reaction Status Date / Time escitalopram (From Lexapro) AdvReac Dizziness, Verified 05/16/24 09:57 headache General Stated Complaint: Headache ANGEL: 3 Review of Systems All systems reviewed & are unremarkable except as noted in HPI and below Constitutional Constitutional: Reports headache(s) ENT Ears, Nose, Mouth, and Throat: Reports headache(s) Cardiovascular Cardiovascular: Reports syncope Neurologic Neurologic: Reports syncope and Reports headache(s) Exam Narrative Exam Narrative: Constitutional: Alert and oriented x3. Appears stated age. Normal body habitus. Head: Normocephalic, no trauma. Eyes: Pupils PERRL, Red reflex noted, EOM's intact. Eyelids symmetrical without lesions, discharge, or swelling. ENT: Bilateral TM's WNL, External ear normal to inspection, no mastoid TTP, swelling, or erythema, Nasal turbinates WNL, no nasal discharge. Normal dentition, Posterior pharynx WNL, no exudate. Chest: RRR, Normal S1, S2, distal pulses intact. Resp: Lungs clear to auscultation bilaterally, no wheezes, rales, or rhonchi. Abdomen: Soft, non-distended, Normoactive bowel sounds all 4 quads. Musculoskeletal: Normal gait, Moves all 4 extremities without difficulty. Skin: No suspicious rashes or lesions. Capillary refill less than 2 sec. Neurologic: Cranial nerves II-XII intact. Alert and oriented x 3. Motor: No deficits noted. Sensory: Intact bilaterally all 4 extremities. Hematologic/Lymphatic: No ecchymosis, no lymphadenopathy. Course Vital Signs Vital signs: Vital Signs Temperature 36.2 C L 08/31/24 10:16 Pulse 102 H 08/31/24 10:16 Respiratory Rate 22 08/31/24 10:16 Blood Pressure 140/90 08/31/24 10:16 Pulse Oximetry 98 08/31/24 10:16 Temperature 36.2 C L 08/31/24 10:16 Pulse 102 H 08/31/24 10:16 Respiratory Rate 22 08/31/24 10:16 Blood Pressure 140/90 08/31/24 10:16 Pulse Oximetry 98 08/31/24 10:16 Pain Level 10 08/31/24 10:16 Medical Decision Making 38-year-old female who presents to the ER with a chief complaint of headache which has been worsening over the last week to a month. She states that it is pressure, she notes throbbing in her right ear. It is in the back of her head and radiates down the back of her neck. She was given 1 g of Tylenol, Zofran 4 mg and 100 mics of fentanyl by EMS prior to arrival. This did little to nothing to relieve her pain. She denies any fever or chills or flulike symptoms. She denies any recent head injuries. However she does state that she does faint with these headache episodes. She has no numbness tingling weakness or confusion. Does have a history of anxiety, mild Tourette's syndrome, ADHD. She is scheduled for an MRI of her brain in 2 days she reports that she cannot wait that long. No sensitivity to light or sound. Does have a history of a Chiari I malformation. 0.5 of hydromorphone IV ordered, and contacted diagnostic imaging to inquire about the MRI which is a brain without that is ordered on September 02, MRI brain without ordered, differential diagnosis includes not limited to CVA, migraine, meningitis, subdural hematoma, patient has no complaints of fever chills or toxic symptoms. She is crying moaning and states that she feels like she is going to . She is followed by neuro at [facility]. MRI is within normal limits, no acute abnormality stable appearance of the Chiari I malformation. Will reevaluate patient. On patient reevaluation she is sleeping without any difficulty. Upon awakening she states that her pain has decreased quite a bit. I did discuss her MRI results with her. Will give a couple more days of the hydromorphone tablets. She does have an upcoming appointment with neurology on the . I did encourage her to keep this appointment. Discussed strict return instructions with her. This text was generated using [email or web address] dictation system, please disregard any oddities of phrase or misspellings. Medical Records Medical records reviewed: Yes I reviewed the patient's medical records. Imaging Data Radiologic Study: Imaging: MRI Radiologist's impression: FINDINGS: VENTRICLES AND EXTRA AXIAL SPACES: Normal in size and morphology for the patient's age. No change from prior exams. MIDLINE SHIFT: None. CEREBRAL PARENCHYMA: No focus of restricted diffusion to suggest acute infarct. No space-occupying lesion identified. Mild atrophy consistent with the patient's age. Mild scattered foci of high signal in the white matter consistent with sequela of chronic microvascular disease. BRAINSTEM/CEREBELLUM: No change in the appearance of the elongated cerebellar tonsils extending below the foramen magnum. No abnormal signal in the brainstem. No evidence of mass effect. VISUALIZED PARANASAL SINUSES: Clear mucous retention cyst at the floor of the right maxillary sinus. MASTOIDS:Clear. Vasculature: Normal flow void. PITUITARY GLAND: Unremarkable. ORBITS: Unremarkable. IMPRESSION: Stable appearance of Chiari 1 malformation. No acute abnormality. Lab Data Lab results reviewed: Yes I reviewed the patient's lab results. Labs: Laboratory Tests Range/Units 08/31/24 08/31/24 10:55 13:05 WBC (4.4-10.8) 10^3/uL 7.55 RBC (3.93-5.22) 10^6/uL 4.52 Hgb (11.2-15.7) g/dL 13.5 Hct (36.0-46.0) % 40.3 MCV (80-95) fL 89 MCH (27.0-33.0) pg 29.9 MCHC (32.0-36.0) % 33.5 RDW (11.7-14.6) % 12.6 Plt Count (130-400) 10^3/uL 279 MPV (8.0-11.0) fL 9.3 Immature Gran % % 0.3 Neutrophils % % 59.9 Lymphocytes % % 33.0 Monocytes % % 5.6 Eosinophils % % 0.7 Basophils % % 0.5 Nucleated RBC % (0.0-0.3) % 0.0 Absolute Neutrophils (1.2-6.7) 10^3/uL 4.53 Absolute Lymphocytes (1.2-3.4) 10^3/uL 2.49 Absolute Monocytes (0.1-0.8) 10^3/uL 0.42 Absolute Eosinophils (0.0-0.7) 10^3/uL 0.05 Absolute Basophils (0.0-0.2) 10^3/uL 0.04 ESR (0-20) mm/hr 2 Sodium (136-145) mmol/L 141 Potassium (3.5-5.1) mmol/L 4.2 Chloride (98-107) mmol/L 107 Carbon Dioxide (21.0-32.0) mmol/L 28.2 Anion Gap (3-11) mmol/L 5.8 BUN (7-18) mg/dL 15 Creatinine (0.55-1.02) mg/dL 0.6 Est GFR (CKD-EPI 2020) (mL/min/1.73m2) 116.30 Glucose (74-106) mg/dL 91 Calcium (8.5-10.1) mg/dL 8.9 Total Bilirubin (0.2-1.0) mg/dL 0.4 AST (15-37) U/L 16 ALT (14-59) U/L 16 Alkaline Phosphatase (46-116) U/L 49 Total Protein (6.4-8.2) g/dL 6.9 Albumin (3.4-5.0) g/dL 3.7 Urine Color (Yellow) Yellow Urine Clarity (Clear) Sl Cloudy Urine pH (5-8) 6.0 Ur Specific [place] (1.005-1.025) >= 1.030 H Urine Protein (Neg-Trace) mg/dL Negative Urine Ketones (Negative) mg/dL Trace H Urine Blood (Negative) Negative Urine Nitrite (Negative) Negative Urine Bilirubin (Negative) Negative Urine Urobilinogen (Up to 0.2) mg/dL 0.2 Ur Leukocyte Esterase (Negative) Negative Urine Glucose (Negative) mg/dL Negative Quality:SDOH Health Related Social Needs: No Data to Display PFSH All Active Problems (Updated 08/31/24 @ 15:14 by Brenda Rowan NP) Headache (Acute) Chronic headache (Acute) Pain, joint, foot, right (Acute) Pain in right foot (Acute) Gout (Chronic) Hyperuricemia (Acute) Dyspareunia, female (Acute) Vaginal pain (Acute) Vulvar pain (Acute) Pelvic pain (Acute) Migraine headache without aura (Acute) Medical History Anxiety Dysmenorrhea Mild Tourette's syndrome COVID 09/20/22 Tourettes disease pt states it is mild Dysuria History of dysmenorrhea Left-sided back pain Anxiety state History of depression ADHD Surgical History History of repair of dehiscence of vaginal cuff S/P laparoscopic assisted vaginal hysterectomy (LAVH) 03/26/2022 Hx of tubal ligation History of tonsillectomy Hx of section 2019, Arrest disorder [place], [place] History of laparoscopy 2012. For endometriosis. 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
--- NOTE | 2024-08-31 10:45 | DI.MRI_ITS ---
Exam(s) MR BRAIN WO EXAM: MR BRAIN WO CLINICAL HISTORY: Headache, Hx Chiari malformation TECHNIQUE: Multiplanar multisequence MRI of the brain was performed. COMPARISON: CT HEAD WITHOUT CONTRAST from 04/20/2008 CT HEAD WITHOUT CONTRAST from 01/06/2011 CT BRAIN W/O CONTRAST from 11/26/[address] BRAIN NECK CTA from 04/16/2023 MR MR CERVICAL SPINE WO from 05/23/2024 FINDINGS: VENTRICLES AND EXTRA AXIAL SPACES: Normal in size and morphology for the patient's age. No change fr om prior exams. MIDLINE SHIFT: None. CEREBRAL PARENCHYMA: No focus of restricted diffusion to suggest acute infarct. No space-occupying le cora identified. Mild atrophy consistent with the patient's age. Mild scattered foci of high signal in the white matter consistent with sequela of chronic microvascular disease. BRAINSTEM/CEREBELLUM: No change in the appearance of the elongated cerebellar tonsils extending below the foramen magnum. No abnormal signal in the brainstem. No evidence of mass effect. VISUALIZED PARANASAL SINUSES: Clear mucous retention cyst at the floor of the right maxillary sinus. MASTOIDS:Clear. Vasculature: Normal flow void. PITUITARY GLAND: Unremarkable. ORBITS: Unremarkable. IMPRESSION: Stable appearance of Chiari 1 malformation. No acute abnormality. DATA REPOSITORY:
[2024-08-31] MEDS: HYDROmorphone 2 MG/ML SYR 0.5 MG IVP ×2 (10:51→13:02)
[2024-08-31] MEDS: Normal Saline 1,000 ML 1000 ML IV (10:52)
[2024-08-31 11:10] LABS: Abs Immature Grans 0.02 10^3/uL (0.0-0.06); Absolute Basophil Count 0.04 10^3/uL (0.0-0.2); Absolute Eosinophil Count 0.05 10^3/uL (0.0-0.7); Absolute Lymphocyte Count 2.49 10^3/uL (1.2-3.4); Absolute Monocyte Count 0.42 10^3/uL (0.1-0.8); Absolute Neutrophil Count 4.53 10^3/uL (1.2-6.7); Basophils % 0.5 %; Eosinophils % 0.7 %; HCT 40.3 % (36.0-46.0); HGB 13.5 g/dL (11.2-15.7); Immature Grans % 0.3 %; MCH 29.9 pg (27.0-33.0); MCHC 33.5 % (32.0-36.0); MCV 89 fL (80-95); MPV 9.3 fL (8.0-11.0); Monocytes % 5.6 %; Neutrophils % 59.9 %; Platelet Count 279 10^3/uL (130-400); RBC 4.52 10^6/uL (3.93-5.22); RDW 12.6 % (11.7-14.6); RDW-SD 41.2 fL; WBC 7.55 10^3/uL (4.4-10.8)
[2024-08-31 11:16] LABS: ESR 2 mm/hr (0-20)
[2024-08-31 11:24] LABS: ALT 16 U/L (14-59); AST 16 U/L (15-37); Albumin 3.7 g/dL (3.4-5.0); Alkaline Phosphatase 49 U/L (46-116); Anion Gap 5.8 mmol/L (3-11); BUN 15 mg/dL (7-18); Bilirubin, Total 0.4 mg/dL (0.2-1.0); CO2 28.2 mmol/L (21.0-32.0); CREATININE 0.6 mg/dL (0.55-1.02); Calcium 8.9 mg/dL (8.5-10.1); Chloride 107 mmol/L (98-107); Glucose 91 mg/dL (74-106); Potassium 4.2 mmol/L (3.5-5.1); Sodium 141 mmol/L (136-145); Total Protein 6.9 g/dL (6.4-8.2)
[2024-08-31 13:13] LABS: Bilirubin Negative (Negative); Blood Negative (Negative); Clarity Sl Cloudy (Clear); Glucose Negative (Negative); Ketones Trace mg/dL (Negative); Leukocyte Esterase Negative (Negative); Nitrite Negative (Negative); Specific Gravity >= 1.030 (1.005-1.025); Urobilinogen 0.2 mg/dL (Up to 0.2)
== END 2024-08-31 15:37 | disposition home or self-care (01) ==
PROVIDERS: Emergency Provider Registered Nurse Emergency; PCP Family Medicine
DX: R51.9 Headache, unspecified (principal)
CPT/HCPCS: 99283; 99284; 96374; 96376; 80053; 85652; 96361; 70551; 81003; 85025; J1171

== ENCOUNTER 2024-09-19 09:04 | Emergency (ER) | payer MEDICAID, SELFPAY ==
[2024-09-19] VITALS (37 sets, daily range): BP systolic 114–140; BP diastolic 65–102; PULSE 74–112; RESP 9–33; TEMP 36.6; O2SAT 97–99
[2024-09-19] MEDS: HYDROmorphone 2 MG/ML SYR 0.5 MG IVP (09:39)
[2024-09-19] MEDS: ACETAMINOPHEN 1,000 MG/100 ML BTL 400 MG IVPB (09:40)
--- NOTE | 2024-09-19 09:50 | ED.GENADUL_ITS ---
Discharge Plan Disposition Patient Disposition: Home Discharge Details Clinical Impression: Headache, Chiari I malformation Primary Care Provider: Edi Izaguirre ED Provider: Grace Teran Home Meds and New Rx's Prescriptions: New hydromorphone 2 mg tablet 2 mg PO Q6H PRNQty: 10 0RF cyclobenzaprine 5 mg tablet 5 mg PO TID PRNQty: 10 0RF ondansetron 4 mg tablet,disintegrating 4 mg PO Q8H PRNQty: 20 0RF No Action ibuprofen 600 mg tablet 600 mg PO Q6H PRN (Reason: pain) Qty: 45 2RF rizatriptan 10 mg tablet See Rx Instructions PO .COMPLEX Qty: 10 5RF Rx Instructions: take 1 tab at onset of headache; if no relief may repeat 1 tab after at least 2 hrs; max = 3 tabs/24 hr PO lamotrigine 100 mg tablet 200 mg PO DAILY atomoxetine 25 mg capsule 25 mg PO DAILY Patient Comments: TAKE 1 CAPSULE BY MOUTH EVERY MORNING hydromorphone 2 mg tablet 2 mg PO Q6H PRN (Reason: pain) Qty: 7 0RF Rx Instructions: Take 1 tablet by mouth every 6 hours as needed for moderate to severe pain Discharge Instructions Additional Instructions: You were seen in the emergency department today for evaluation of headache likely due to your Chiari malformation. In our department a full physical examination performed and had a CT of your brain that did not show any bleeding or other abnormality or change from your baseline. We did discuss your case with neurosurgery who will be reaching out to discuss your surgery date. Please use therapeutic dosing of Tylenol (acetaminophen) & Advil (ibuprofen) in an alternating fashion as follows: Take 1000mg of Tylenol every 6 hours without missing doses- that is 4 times per day. [place] in between the Tylenol doses, take 600mg of Advil also on a 6 hour schedule, that is also 4 times per day. With this strategy, you will be taking something for fever/pain as often as every 3 hours. The daily maximum dosing of Tylenol is 4000mg, and the daily maximum dosing of Advil is 2400mg. Please note that some common cold medications & prescription pain medications may contain acetaminophen and you need to read OTC drug labels and factor that in to maximum daily doses. I also provided you with a prescription for Flexeril, a muscle relaxer, and Dilaudid, a strong pain medication. Please use 1 or the other of these depending on your symptoms, as both may cause drowsiness or sleepiness. Please do not drive, operate machinery, or be responsible for childcare until you know how these medications affect you. Reasons to return to the emergency department include a sudden or severe change or worsening of your headache, especially if it is different from your normal headache. If you develop weakness, numbness, or inability to move part of your body, or other symptoms that cause you concern. Please follow-up with your primary care provider in the next few days to discuss this visit and any symptoms that change, worsen, or persist. Thank you for allowing us to be part of your care. HPI General Mode of arrival: ambulatory . Date/Time Provider Initiated Documentation: 09/19/24 09:07 . Limitations to Documentation: no limitations . Information obtained by: patient and old records reviewed . HPI Narrative: This is a 38-year-old female patient with a past medical history significant for Chiari malformation, migraine headache, presenting for evaluation of sudden and severe headache. She reports that she often will get attacks from her Chiari malformation, which feel like significant pressure in her head and shooting pains down into her neck, exacerbated by neck movement. She reports around 430 this morning she began to feel severe pain, states that she did not have any preceding injury or movement or other inciting event. She states that she called [facility] neurosurgery, who is scheduled to perform Chiari decompression surgery for management of her chronic headaches, and they recommended that she come to the emergency department for immediate pain management. Related Data Home Medications ?Medication ?Instructions ?Recorded ?Confirmed lamotrigine 100 mg tablet 200 mg PO DAILY 11/18/21 05/16/24 ibuprofen 600 mg tablet 600 mg PO Q6H PRN pain #45 tabs 10/08/22 05/16/24 rizatriptan 10 mg tablet See Rx Instructions PO .COMPLEX 07/30/23 05/16/24 #10 tabs atomoxetine 25 mg capsule 25 mg PO DAILY 05/16/24 05/16/24 hydromorphone 2 mg tablet 2 mg PO Q6H PRN pain #7 tabs 08/31/24 cyclobenzaprine 5 mg tablet 5 mg PO TID PRN #10 tabs 05/19/25 hydromorphone 2 mg tablet 2 mg PO Q6H PRN #10 tabs 09/19/24 ondansetron 4 mg disintegrating 4 mg PO Q8H PRN #20 tabs 09/19/24 tablet Previous Rx's ?Medication ?Instructions ?Recorded ibuprofen 600 mg tablet 600 mg PO Q6H PRN pain #45 tabs 10/08/22 rizatriptan 10 mg tablet See Rx Instructions PO .COMPLEX 07/30/23 #10 tabs hydromorphone 2 mg tablet 2 mg PO Q6H PRN pain #7 tabs 08/31/24 cyclobenzaprine 5 mg tablet 5 mg PO TID PRN #10 tabs 09/19/24 hydromorphone 2 mg tablet 2 mg PO Q6H PRN #10 tabs 09/19/24 ondansetron 4 mg disintegrating 4 mg PO Q8H PRN #20 tabs 09/19/24 tablet Allergies Allergy/AdvReac Type Severity Reaction Status Date / Time escitalopram (From [employer]) AdvReac Dizziness, Verified 09/19/24 09:11 headache General Stated Complaint: Headache ANGEL: 3 Exam Narrative Exam Narrative: Gen: Awake and alert, in no apparent distress HEENT: Non-icteric sclera, PERRL, tracks appropriately without nystagmus Neck: Pain with movement, patient holding her neck quite stiffly Lungs: No apparent respiratory distress, normal respiratory effort. CV: Appears well perfused Abdomen: Non-distended MSK: Moves 4 extremities without apparent limitation in ROM Skin: Visualized skin without rashes, cyanosis. Neuro: Normal Gait, cranial nerves II through XII intact and symmetrical, no focal motor or sensory deficits x 4 extremities. Speaks in full, clear sentences. Psych: Appropriate for situation. Course Vital Signs Vital signs: Vital Signs Temperature 36.6 C 09/19/24 09:10 Pulse 106 H 09/19/24 09:10 Respiratory Rate 18 09/19/24 09:10 Blood Pressure 132/83 09/19/24 09:10 Pulse Oximetry 98 09/19/24 09:10 Temperature 36.6 C 09/19/24 09:11 Pulse 106 H 09/19/24 09:11 Respiratory Rate 18 09/19/24 09:11 Blood Pressure 132/83 09/19/24 09:11 Pulse Oximetry 98 09/19/24 09:11 Pain Level 10 09/19/24 09:39 Medical Decision Making This is a 38-year-old female patient presenting for evaluation of headache. My differential includes but is not limited to Chiari malformation associated headache given the patient's history of same and the similar presentation to prior episodes. I certainly considered other severe headache disorders including intracranial hemorrhage/subarachnoid, migraine headache. The patient is afebrile, and I have a lower concern for infectious pathologies including meningitis. No trauma to suggest skull or spine fracture. Given the history I will provide the patient with Tylenol and Dilaudid for initial symptomatic management of pain. I will obtain a Noncon CT scan to evaluate for intracranial abnormalities such as mass effect or hemorrhage. Anticipate reaching out to [facility] neurosurgery to discuss the utility of further imaging studies, and recommendations for ongoing management of her pain. -I discussed the patient's case with neurosurgery, who will follow-up with their schedule to ensure that her surgical intervention occurs in a timely manner. They did recommend Noncon CT only, ongoing pain management, and a referral to the headache clinic, which will be provided. They did suggest trialing a muscle relaxer, and so Valium and Toradol were provided as her second round of headache medication management. CT head without intracranial hemorrhage or change in her Chiari malformation. After reassessment the patient continues to have headache, and a dose of 1 mg Dilaudid was provided to excellent effect. The patient remains neuro intact, prescriptions for Dilaudid and Flexeril were provided as well as Zofran, and at this time, the patient has had a full medical evaluation and is safe for discharge to home. They are hemodynamically stable, ambulatory, and tolerating PO. They are understanding of the follow-up plan and return precautions. They left our facility without incident. Grace Teran MD Quality:SDGA Health Related Social Needs: No Data to Display PFSH All Active Problems (Updated 09/19/24 @ 12:55 by Grace Teran MD) Chiari I malformation (Acute) Headache (Acute) Chronic headache (Acute) Pain, joint, foot, right (Acute) Pain in right foot (Acute) Gout (Chronic) Hyperuricemia (Acute) Dyspareunia, female (Acute) Vaginal pain (Acute) Vulvar pain (Acute) Pelvic pain (Acute) Migraine headache without aura (Acute) Medical History Anxiety Dysmenorrhea Mild Tourette's syndrome COVID 09/20/22 Tourettes disease pt states it is mild Dysuria History of dysmenorrhea Left-sided back pain Anxiety state History of depression ADHD Surgical History History of repair of dehiscence of vaginal cuff S/P laparoscopic assisted vaginal hysterectomy (LAVH) 03/26/2022 Hx of tubal ligation History of tonsillectomy Hx of section 2019, Arrest disorder [place], [place] History of laparoscopy 2012. For endometriosis. 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
[2024-09-19] MEDS: Ketorolac 15 MG/ML VIAL IVP (10:56)
[2024-09-19] MEDS: diazePAM 10 MG/2 ML SYR 5 MG IVP (11:04)
--- NOTE | 2024-09-19 11:50 | DI.CT_ITS ---
Exam(s) CT HEAD WO EXAM: CT HEAD WO CLINICAL HISTORY: Sudden ALMODOVAR, hx chiari. TECHNIQUE: Imaging Protocol: Axial computed tomography images with coronal and sagittal reformatted images were created and reviewed COMPARISON: CT CT BRAIN NECK CTA from 04/16/2023 MR MR CERVICAL SPINE WO from 05/23/2024 MR MR BRAIN WO from 08/31/2024 FINDINGS: Ventricles and Extra axial spaces: Normal in size and morphology for the patient's age. Hemorrhage: None. Cerebral parenchyma: No evidence of acute infarct or mass. Midline shift: None. Brainstem/Cerebellum: The cerebellar tonsils extend below the foramen magnum, similar to recent brain MRI. Calvarium: Normal. Visualized Paranasal sinuses:Clear. Mastoids: Clear. Soft Tissues: Unremarkable. ORBITS: Unremarkable. PITUITARY: Not enlarged. IMPRESSION: No acute intracranial process. Stable appearance of Chiari 1 malformation. RADIATION DOSE DELIVERED: 953.11mGy.cm Total DLP DATA REPOSITORY: All CT scans at this facility are submitted to the National Radiology Data Registry (NRDR) Dose Index Registry (DIR) with the [employer] (ACR). RADIATION OPTIMIZATION: All CT scans at this facility use at least one of these dose optimization te chniques: automated exposure control; mA and/or kV adjustment per patient size (includes targeted exa ms where dose is matched to clinical indication); or iterative reconstruction.
[2024-09-19] MEDS: HYDROmorphone 2 MG/ML SYR 1 MG IVP (12:38)
== END 2024-09-19 13:29 | disposition home or self-care (01) ==
PROVIDERS: Emergency Provider Emergency Medicine; PCP Family Medicine
DX: R51.9 Headache, unspecified (principal); G93.5 Compression of brain; Z87.891 Personal history of nicotine dependence
CPT/HCPCS: 36415; 96374; 96375; 96376; 99284; 70450; J0131; J1171; J1885; J3360

== ENCOUNTER 2024-10-31 14:11 | Emergency (ER) | payer MEDICAID, SELFPAY ==
[2024-10-31 14:13] VITALS: BP 131/76; PULSE 103; RESP 14; TEMP 36.7; O2SAT 96
--- NOTE | 2024-10-31 14:38 | ED.GENADUL_ITS ---
Discharge Plan Disposition Patient Disposition: Home Condition: Stable Discharge Details Clinical Impression: Arnold-Chiari malformation, Chronic headache Primary Care Provider: Edi Izaguirre ED Provider: Grace Teran Home Meds and New Rx's Prescriptions: New diazepam [Valium] 5 mg tablet 5 mg PO BID PRNQty: 10 0RF No Action ibuprofen 600 mg tablet 600 mg PO Q6H PRN (Reason: pain) Qty: 45 2RF rizatriptan 10 mg tablet See Rx Instructions PO .COMPLEX Qty: 10 5RF Rx Instructions: take 1 tab at onset of headache; if no relief may repeat 1 tab after at least 2 hrs; max = 3 tabs/24 hr PO lamotrigine 100 mg tablet 200 mg PO DAILY atomoxetine 25 mg capsule 25 mg PO DAILY Patient Comments: TAKE 1 CAPSULE BY MOUTH EVERY MORNING hydromorphone 2 mg tablet 2 mg PO Q6H PRN (Reason: pain) Qty: 7 0RF Rx Instructions: Take 1 tablet by mouth every 6 hours as needed for moderate to severe pain hydromorphone 2 mg tablet 2 mg PO Q6H PRNQty: 10 0RF cyclobenzaprine 5 mg tablet 5 mg PO TID PRNQty: 10 0RF ondansetron 4 mg tablet,disintegrating 4 mg PO Q8H PRNQty: 20 0RF Discharge Instructions Instructions: Headache, Adult ED Additional Instructions: You were seen in the emergency department today for evaluation of an ongoing headache and dizziness with position changes, likely a change after your Chiari malformation surgery. In our department a full physical examination performed, had reassuring vital signs and laboratory studies, and had a CT scan of your head that did not show any abnormalities that require you to stay in the hospital today. You do have some normal postoperative changes which may be contributing to your symptoms. We discussed your case with the neurosurgery team. They recommend continuing your home medications, and you can consider trialing a combination medication [id number]-[id number] such as Excedrin which contains caffeine. Please be cautious that you do not exceed the daily limit of Tylenol as these medications can contain a small amount of Tylenol. You can continue to use your Valium for muscle relaxation, and should contact the neurosurgery clinic if your symptoms persist and you want to trial steroids. They will reach out to you to reschedule your appointment for a sooner date, and you may receive a phone call from [place] [facility] [place]. Please follow-up with your primary care provider in the next few days to discuss this visit and any symptoms that change, worsen, or persist. Thank you for allowing us to be part of your care. Discharge Data Discharge Date/Time-TO BE ENTERED AT DEPARTURE: 10/31/24 17:41 HPI General Mode of arrival: ambulatory . Date/Time Provider Initiated Documentation: 10/31/24 14:15 . Limitations to Documentation: no limitations . Information obtained by: patient and old records reviewed . HPI Narrative: This is a 38-year-old female patient with a past medical history most notable for Chiari malformation status post decompression on September 23 of this year, presenting for evaluation of worsening headache, positional near syncope, and numb lips. The patient reports that after her surgery she was initially doing quite well. Around October 25 she started to have worsening of her headaches, has been managing them with Tylenol and ibuprofen. She states that this is associated with nausea, though she has been able to maintain her hydration. The last few days she has noticed that when she extends her neck and looks up she has significant dizziness and vertigo, and feels like she is going to faint. She has not had a fever or chills, states that she did have meningitis as what a complication postoperatively, but this feels very different from that. She does not have nuchal rigidity or any other limitations in range of motion with flexion or rotation. She reports that she feels like her lips go numb anytime she moves her neck in any direction, but denies other weakness, numbness, or neurodeficit. She took a dose of Tylenol about 2-1/2 hours ago, has not yet used any ibuprofen today. She has not started any steroids, though this was discussed with her surgery team. Denies any trauma, injuries, heavy lifting. No new changes in vision or photophobia. Related Data Home Medications ?Medication ?Instructions ?Recorded ?Confirmed lamotrigine 100 mg tablet 200 mg PO DAILY 11/18/21 ibuprofen 600 mg tablet 600 mg PO Q6H PRN pain #45 t abs 10/08/22 10/31/24 rizatriptan 10 mg tablet See Rx Instructions PO .COMP ASAD 07/30/23 10/31/24 #10 tabs atomoxetine 25 mg capsule 25 mg PO DAILY 05/16/2410/04 hydromorphone 2 mg tablet 2 mg PO Q6H PRN pain #7 tabs 08/31/24 10/31/24 cyclobenzaprine 5 mg tablet 5 mg PO TID PRN #10 tabs 0 09/19/24 10/31/24 hydromorphone 2 mg tablet 2 mg PO Q6H PRN #10 tabs 10/31/24 ondansetron 4 mg disintegrating 4 mg PO Q8H PRN #20 ta bs 09/19/24 10/31/24 tablet diazepam 5 mg tablet (Valium) 5 mg PO BID PRN #10 tabs 10/31/24 Previous Rx's ?Medication ?Instructions ?Recorded ibuprofen 600 mg tablet 600 mg PO Q6H PRN pain #45 t abs 10/08/22 rizatriptan 10 mg tablet See Rx Instructions PO .COMP ASAD 07/30/23 #10 tabs hydromorphone 2 mg tablet 2 mg PO Q6H PRN pain #7 tabs 08/31/24 cyclobenzaprine 5 mg tablet 5 mg PO TID PRN #10 tabs 0 09/19/24 hydromorphone 2 mg tablet 2 mg PO Q6H PRN #10 tabs ondansetron 4 mg disintegrating 4 mg PO Q8H PRN #20 ta bs 09/19/24 tablet diazepam 5 mg tablet (Valium) 5 mg PO BID PRN #10 tabs 10/31/24 Allergies Allergy/AdvReac Type Severity Reaction Status Date / Time escitalopram (From Lexapro) AdvReac Dizziness, Verified 10/31/24 14:20 headache General Stated Complaint: Headache ANGEL: 3 Exam Narrative Exam Narrative: Gen: awake and alert, in no apparent distress. Appears well nourished. HEENT: PERRL, EOMs full and without nystagmus. External ears and nose normal, mucous membranes moist. Neck: Supple, full range of motion, no observable masses Lungs: No increased work of breathing CV: Heart with regular rate and rhythm Abdomen: Soft, nondistended. MSK: No joint swelling, no redness. Full ROM without limitation, no external traumatic findings. Skin: No rashes or lesions to visualized skin. Normal color, warm, and dry. Her surgical incision on the back of her neck is well-approximated, well-healing, with no fluctuance or palpable fluid collections. No induration, redness, or sw elling Neuro: Cranial nerves II-XII intact and symmetrical bilaterally. 5/5 strength in all muscle groups x4 extremities. No sensory deficits. Ambulates with steady gait. Psych: Appropriate for situation. Course Vital Signs Vital signs: Vital Signs Temperature 36.7 C 10/31/24 14:13 Pulse 103 H 10/31/24 14:13 Respiratory Rate 14 10/31/24 14:13 Blood Pressure 131/76 10/31/24 14:13 Pulse Oximetry 96 10/31/24 14:13 Temperature 36.7 C 10/31/24 14:13 Temperature Source Oral 10/31/24 14:13 Pulse 103 H 10/31/24 14:13 Respiratory Rate 14 10/31/24 14:13 Blood Pressure 131/76 10/31/24 14:13 Blood Pressure Position Sitting 10/31/24 14:13 Pulse Oximetry 96 10/31/24 14:13 Oxygen Delivery Method Room Air 10/31/24 14:13 Oxygen Flow Rate 0 10/31/24 14:13 Pain Level 6 10/31/24 14:13 Comment radiates between 6-8/10 per patient 10/31/24 14:13 Medical Decision Making This is a 38-year-old female patient presenting for evaluation of headache and near syncope with neck movement. My differential includes but is not limited to postsurgical complications including CSF leak, edema, mass effect. The duration of time since the surgery and lack of trauma does decrease my concern for acute intracranial hemorrhage. The patient has no nuchal rigidity or fever to suggest meningitis or encephalitis, though these were certainly considered given the recent surgery and history of same. I considered vascular abnormalities, as well as primary headache disorders including migraine, tension headache. I am reassured by the patient's overall preserved neurologic examination and her hemodynamic stability with no fever noted at this visit. I will provide her with a dose of Toradol and Zofran for initial symptomatic management, will obt ain basic laboratory studies to include CBC, CMP, and magnesium. I will reach out to [facility] neurosurgery to discuss appropriate imaging studies for most accurate diagnosis in this patient. - I independently interpreted the laboratory studies, which show no significant leukocytosis, anemia, or thrombocytopenia. The chemistry panel is without evidence of electrolyte abnormality, kidney dysfunction, or liver injury. Urinalysis with trace hematuria, no infectious findings. Neurosurgery did recommend a CRP which was undetectable, making us very reassured against severe infectious pathology. I reviewed the CTA and discussed the findings with the radiologist as well as the neurosurgeon, there is an appropriate postoperative fluid collection but no evidence for CSF leak, vascular abnormality, intracranial hemorrhage. Neurosurgery recommends that the patient trial a combination medication with caffeine such as Excedrin, I refilled her Valium for muscle relaxation, and if she continues to have symptoms she can contact the neurosurgery clinic to discuss steroid use. They will reach out to neurology headache clinic, and will ensure that she has close follow-up in the outpatient environment with their clinic. At this time, the patient has had a full medical evaluation and is safe for discharge to home. They are hemodynamically stable, ambulatory, and tolerating PO. They are understanding of the follow-up plan and return precautions. They left our facility without incident. Grace Teran MD [facility] All Active Problems (Updated 10/31/24 @ 17:09 by Grace Teran MD) Arnold-Chiari malformation (Acute) Chronic headache (Acute) Pain, joint, foot, right (Acute) Pain in right foot (Acute) Gout (Chronic) Hyperuricemia (Acute) Dyspareunia, female (Acute) Vaginal pain (Acute) Vulvar pain (Acute) Pelvic pain (Acute) Migraine headache without aura (Acute) Medical History Anxiety Dysmenorrhea Mild Tourette's syndrome COVID 09/20/22 Tourettes disease pt states it is mild Dysuria History of dysmenorrhea Left-sided back pain Anxiety state History of depression ADHD Surgical History History of repair of dehiscence of vaginal cuff S/P laparoscopic assisted vaginal hysterectomy (LAVH) 03/26/2022 Hx of tubal ligation History of tonsillectomy Hx of section 2019, Arrest disorder [place], [place] History of laparoscopy 2012. For endometriosis. 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
[2024-10-31 14:52] LABS: Abs Immature Grans 0.01 10^3/uL (0.0-0.06); Absolute Basophil Count 0.04 10^3/uL (0.0-0.2); Absolute Eosinophil Count 0.08 10^3/uL (0.0-0.7); Absolute Lymphocyte Count 2.44 10^3/uL (1.2-3.4); Absolute Monocyte Count 0.36 10^3/uL (0.1-0.8); Basophils % 0.6 %; Eosinophils % 1.3 %; HCT 39.9 % (36.0-46.0); HGB 13.4 g/dL (11.2-15.7); Immature Grans % 0.2 %; Lymphocytes % 38.5 %; MCH 29.4 pg (27.0-33.0); MCHC 33.6 % (32.0-36.0); MCV 88 fL (80-95); MPV 8.9 fL (8.0-11.0); Monocytes % 5.7 %; Neutrophils % 53.7 %; Platelet Count 358 10^3/uL (130-400); RBC 4.56 10^6/uL (3.93-5.22); RDW 12.3 % (11.7-14.6); RDW-SD 39.8 fL; WBC 6.33 10^3/uL (4.4-10.8)
[2024-10-31] MEDS: Ondansetron 4 MG/2 ML VIAL IVP (14:52)
[2024-10-31] MEDS: Ketorolac 15 MG/ML VIAL IVP (14:52)
[2024-10-31 14:55] VITALS: BP 131/76; PULSE 103; RESP 14; TEMP 36.7; O2SAT 96
[2024-10-31 15:08] LABS: ALT 20 U/L (14-59); AST 9 U/L (15-37); Alkaline Phosphatase 65 U/L (46-116); Anion Gap 11.6 mmol/L (3-11); BUN 6 mg/dL (7-18); Bilirubin, Total 0.3 mg/dL (0.2-1.0); CO2 25.4 mmol/L (21.0-32.0); CREATININE 0.5 mg/dL (0.55-1.02); Calcium 9.1 mg/dL (8.5-10.1); Chloride 104 mmol/L (98-107); Estimated GFR 121.52 (mL/min/1.73m2); Glucose 105 mg/dL (74-106); Magnesium 1.9 mg/dL (1.8-2.4); Potassium 3.6 mmol/L (3.5-5.1); Sodium 141 mmol/L (136-145); Total Protein 7.2 g/dL (6.4-8.2)
[2024-10-31 15:35] LABS: Bilirubin Negative (Negative); Blood Trace-lysed (Negative); Clarity Clear (Clear); Glucose Negative (Negative); Ketones Negative (Negative); Leukocyte Esterase Negative (Negative); Nitrite Negative (Negative); Specific Gravity 1.025 (1.005-1.025); Urobilinogen 0.2 mg/dL (Up to 0.2)
[2024-10-31 15:43] LABS: Bacteria Moderate HPF (Negative); C & S Indicated? No; Casts Negative LPF (Negative); Crystals Negative HPF (Negative); Epithelial Cells Negative HPF (Negative); Mucus Trace (Negative); WBC Negative HPF (0-5)
[2024-10-31] MEDS: Omnipaque 350 MG/ML 100 ML BTL IJ (15:52)
[2024-10-31] MEDS: Normal Saline - Diluent 50 ML VIAL IJ (15:53)
--- NOTE | 2024-10-31 15:55 | DI.CT_ITS ---
Exam(s) CT BRAIN NECK CTA EXAM: CT BRAIN NECK CTA CLINICAL HISTORY: s/p chiari malformation decompression, ALMODOVAR and dizz. TECHNIQUE: Imaging Protocol: Axial CT angiography was performed with multi- slice acquisition and multi-planar and MIP reconstructions. CONTRAST MATERIAL: Intravenous: Omnipaque 350 Contrast volume:70 mL COMPARISON: MR MR BRAIN WO from 08/31/[address] HEAD WO from 09/19/2024 FINDINGS: CT Head W/O and W contrast: Ventricles and Extra axial spaces: Normal in size and morphology for the patient's age. Hemorrhage: None. Cerebral parenchyma: No evidence of acute infarct or mass. Midline shift: None. Brainstem/Cerebellum: No acute findings.. Elongated cerebellar tonsils are again noted. Calvarium: Normal except it'll craniotomy now noted. Visualized Paranasal sinuses/Mastoids: Clear. Soft Tissues: Fluid collections seen at craniotomy site measuring 3.5 by 0.9 by 4 cm.. No findings to suggest abscess. Enhancement: Normal. Venous sinuses are patent. CTA Brain W: Internal Carotid Arteries: Right: No aneurysm, occlusion or significant stenosis. Left: No aneurysm, occlusion or significant stenosis. Middle Cerebral Arteries: Right: No aneurysm, occlusion or significant stenosis. Left: No aneurysm, occlusion or significant stenosis. Anterior Cerebral Arteries: Right: No aneurysm, occlusion or significant stenosis. Left: No aneurysm, occlusion or significant stenosis. Posterior cerebral Arteries: Right: No aneurysm, occlusion or significant stenosis. Left: No aneurysm, occlusion or significant stenosis. Vertebral Arteries: Right: No aneurysm, occlusion or significant stenosis. Left: No aneurysm, occlusion or significant stenosis. Basilar Artery: No aneurysm, occlusion or significant stenosis. CTA Neck W: Common Carotid: Right: No dissection, occlusion or significant stenosis. Left: No dissection, occlusion or significant stenosis. External Carotid: Right: No dissection, occlusion or significant stenosis. Left: No dissection, occlusion or significant stenosis. Internal Carotid: Right: No dissection, occlusion or significant stenosis. Left: No dissection, occlusion or significant stenosis. Vertebral Artery: Right: No dissection, occlusion or significant stenosis. Left: No dissection, occlusion or significant stenosis. Lung Apices: No acute findings. Bones: Resection of the posterior ring of C1. Soft Tissues: Normal. IMPRESSION: 1. CTA brain: Normal CTA examination of the [place]. 2. Head CT: Status post occipital craniotomy and resection of the posterior arch of C 1. Postoperative fluid collection at the craniotomy site without evidence of abscess or mass effect. Stable appearance of elongated tonsils. 3. CTA neck: No evidence of occlusion, significant stenosis or dissection. Findings called to Dr. Guillen of the emergency department. RADIATION DOSE DELIVERED: 2,089.53mGy.cm Total DLP DATA REPOSITORY: All CT scans at this facility are submitted to the National Radiology Data Registry (NRDR) Dose Index Registry (DIR) with the [employer] (ACR). RADIATION OPTIMIZATION: All CT scans at this facility use at least one of these dose optimization techniques: automated exposure control; mA and/or kV adjustment per patient size (includes targeted exams where dose is matched to clinical indication); or iterative reconstruction.
[2024-10-31 17:34] LABS: Lab Add On Test DONE
[2024-10-31 17:40] VITALS: BP 131/76; PULSE 103; RESP 14; TEMP 36.7; O2SAT 96
[2024-10-31 18:40] LABS: C-Reactive Protein < 0.50 mg/dL (<or=0.5)
== END 2024-10-31 17:41 | disposition home or self-care (01) ==
PROVIDERS: Emergency Provider Emergency Medicine; PCP Family Medicine
DX: R51.9 Headache, unspecified (principal); G93.5 Compression of brain; Z87.891 Personal history of nicotine dependence
CPT/HCPCS: 36415; 70496; 70498; 80053; 96374; 96375; 99285; 81003; 81015; 83735; 85025; 86140; J1885; J2405; J3490

== ENCOUNTER 2025-02-10 06:35 | Emergency (ER) | payer MEDICAID, SELFPAY ==
[2025-02-10] VITALS (9 sets, daily range): BP systolic 116–150; BP diastolic 68–101; PULSE 78–97; RESP 18; TEMP 36; O2SAT 96–99
[2025-02-10] MEDS: diazePAM 5 MG TAB PO (07:33)
[2025-02-10] MEDS: Ketorolac 15 MG/ML VIAL IVP (07:34)
[2025-02-10 07:43] LABS: Abs Immature Grans 0.01 10^3/uL (0.0-0.06); HCT 37.8 % (36.0-46.0); HGB 12.9 g/dL (11.2-15.7); Immature Grans % 0.2 %; MCH 30.1 pg (27.0-33.0); MCHC 34.1 % (32.0-36.0); MCV 88 fL (80-95); MPV 8.8 fL (8.0-11.0); Platelet Count 281 10^3/uL (130-400); RBC 4.29 10^6/uL (3.93-5.22); RDW 12.1 % (11.7-14.6); RDW-SD 39.2 fL; WBC 5.68 10^3/uL (4.4-10.8)
[2025-02-10 08:05] LABS: ALT 13 U/L (14-59); AST 8 U/L (15-37); Albumin 3.6 g/dL (3.4-5.0); Alkaline Phosphatase 44 U/L (46-116); Anion Gap 8.6 mmol/L (3-11); BUN 11 mg/dL (7-18); Bilirubin, Total 0.3 mg/dL (0.2-1.0); CO2 26.4 mmol/L (21.0-32.0); Calcium 8.6 mg/dL (8.5-10.1); Chloride 106 mmol/L (98-107); Estimated GFR 120.77 (mL/min/1.73m2); Glucose 90 mg/dL (74-106); Potassium 4.1 mmol/L (3.5-5.1); Sodium 141 mmol/L (136-145); Total Protein 6.6 g/dL (6.4-8.2)
[2025-02-10] MEDS: MORPHine IR 15 MG TAB PO (08:10)
--- NOTE | 2025-02-10 08:54 | W.ED.GENAD ---
Discharge Plan Disposition Patient Disposition: Home Condition: Improving Discharge Details Clinical Impression: Headache, Neck pain Primary Care Provider: Edi Izaguirre ED Provider: Lars Louise Home Meds and New Rx's Prescriptions: Continued ibuprofen 600 mg tablet 600 mg PO Q6H PRN (Reason: pain) Qty: 45 2RF lamotrigine 100 mg tablet 250 mg PO DAILY atomoxetine 25 mg capsule 25 mg PO DAILY Patient Comments: TAKE 1 CAPSULE BY MOUTH EVERY MORNING cyclobenzaprine 5 mg tablet 5 mg PO TID PRNQty: 10 0RF ondansetron 4 mg tablet,disintegrating 4 mg PO Q8H PRNQty: 20 0RF diazepam [Valium] 5 mg tablet 5 mg PO BID PRNQty: 10 0RF Discontinued lamotrigine 25 mg tablet 200 mg PO DAILY Discharge Instructions Additional Instructions: Please have your family member drive you to your scheduled outpatient imaging appointment today and follow-up with your neurosurgeon today. Should pain return and worsen, please return immediately to the emergency department. Please follow-up with your primary care physician. Return to the emergency department immediately for any worsening or new concerning symptoms. Referrals: Edi Izaguirre MD [Primary Care Provider, Medicine] Discharge Data Discharge Date/Time-TO BE ENTERED AT DEPARTURE: 02/10/25 09:08 HPI General Mode of arrival: ambulatory. Date/Time Provider Initiated Documentation: 02/10/25 06:44. Limitations to Documentation: no limitations. Information obtained by: patient. HPI Narrative: HISTORY OF PRESENT ILLNESS This is a 39-year-old female with a history of OCD, ADHD, anxiety, craniotomy, and Chiari malformation status post-surgery presenting with headache and neck pain. The patient was brought in by herself. The patient reports experiencing daily flare-ups of pain in the back of her head and neck, which vary in intensity. The onset of these symptoms began after she underwent decompression surgery and duraplasty in 09/2024. She describes the pain as intermittent and sometimes very intense. The patient also notes clear, shiny fluid leakage from her eyes and the back of her throat. She had a diagnostic imaging appointment scheduled for today but was unable to attend due to her discomfort. She has been advised to undergo a CT myelogram and an MRI by her neurosurgeon, Dr. Santana. The patient reports no fever. She took ibuprofen around 2:00 or 3:00 PM today for pain relief and is not on any other regular medication. She also reports persistent numbness in her left arm since surgery but does not experience any weakness or numbness in her legs. Related Data Home Medications ?Medication ?Instructions ?Recorded ?Confirmed lamotrigine 100 mg tablet 250 mg PO DAILY 11/18/21 02/10/25 ibuprofen 600 mg tablet 600 mg PO Q6H PRN pain #45 tabs 10/08/22 02/10/25 atomoxetine 25 mg capsule 25 mg PO DAILY 05/16/24 02/10/25 cyclobenzaprine 5 mg tablet 5 mg PO TID PRN #10 tabs 09/19/24 02/10/25 ondansetron 4 mg disintegrating 4 mg PO Q8H PRN #20 tabs 09/19/24 02/10/25 tablet diazepam 5 mg tablet (Valium) 5 mg PO BID PRN #10 tabs 10/31/24 02/10/25 Previous Rx's ?Medication ?Instructions ?Recorded ibuprofen 600 mg tablet 600 mg PO Q6H PRN pain #45 tabs 10/08/22 cyclobenzaprine 5 mg tablet 5 mg PO TID PRN #10 tabs 09/19/24 ondansetron 4 mg disintegrating 4 mg PO Q8H PRN #20 tabs 09/19/24 tablet diazepam 5 mg tablet (Valium) 5 mg PO BID PRN #10 tabs 10/31/24 Allergies Allergy/AdvReac Type Severity Reaction Status Date / Time escitalopram (From Lexapro) AdvReac Dizziness, Verified 10/31/24 14:20 headache General Stated Complaint: Headache ANGEL: 3 Review of Systems All systems reviewed & are unremarkable except as noted in HPI and below Constitutional Constitutional: Denies fever(s) Exam Const General: cooperative, uncomfortable and well developed Nutritional Appearance: well nourished Orientation: alert [facility] Head: normocephalic and atraumatic Mouth: moist mucous membranes Eyes Conjunctivae: normal conjunctivae Sclera: normal sclerae EOM: EOM intact bilaterally Neck Neck: supple Cardio Rate: regular rate and not tachycardic Rhythm: regular rhythm Skin General skin exam: no rashes or lesions noted Neuro General: patient alert, patient awake, patient oriented x3 and tone normal Cognition: normal cognition Motor: strength 5/5 throughout Other: Diminished sensation to light touch left arm, otherwise intact Extrem General: no edema Psych Appearance: grossly normal Mental Status: mental status grossly normal Speech and Movement: speech and movement normal Course Vital Signs Vital signs: Vital Signs Temperature 36.0 C L 02/10/25 06:39 Pulse 89 02/10/25 06:39 Respiratory Rate 18 02/10/25 06:39 Blood Pressure 150/90 H 02/10/25 06:39 Pulse Oximetry 98 02/10/25 06:39 Temperature 36.0 C L 02/10/25 06:39 Temperature Source Tympanic 02/10/25 06:39 Pulse 82 02/10/25 08:46 Respiratory Rate 18 02/10/25 07:21 Blood Pressure 127/69 02/10/25 08:46 Blood Pressure Mean 85 02/10/25 08:46 Blood Pressure Position Sitting 02/10/25 06:39 Pulse Oximetry 99 02/10/25 08:46 Oxygen Delivery Method Room Air 02/10/25 07:21 Oxygen Flow Rate 0 02/10/25 07:21 Pain Level 10 02/10/25 06:42 Lab/Test Results Lab/Test Results: Laboratory Tests Range/Units 02/10/25 07:35 WBC (4.4-10.8) 10^3/uL 5.68 RBC (3.93-5.22) 10^6/uL 4.29 Hgb (11.2-15.7) g/dL 12.9 Hct (36.0-46.0) % 37.8 MCV (80-95) fL 88 MCH (27.0-33.0) pg 30.1 MCHC (32.0-36.0) % 34.1 RDW (11.7-14.6) % 12.1 Plt Count (130-400) 10^3/uL 281 MPV (8.0-11.0) fL 8.8 Immature Gran % % 0.2 Neutrophils % % 58.9 Lymphocytes % % 32.0 Monocytes % % 7.0 Eosinophils % % 1.2 Basophils % % 0.7 Nucleated RBC % (0.0-0.3) % 0.0 Absolute Neutrophils (1.2-6.7) 10^3/uL 3.34 Absolute Lymphocytes (1.2-3.4) 10^3/uL 1.82 Absolute Monocytes (0.1-0.8) 10^3/uL 0.40 Absolute Eosinophils (0.0-0.7) 10^3/uL 0.07 Absolute Basophils (0.0-0.2) 10^3/uL 0.04 Sodium (136-145) mmol/L 141 Potassium (3.5-5.1) mmol/L 4.1 Chloride (98-107) mmol/L 106 Carbon Dioxide (21.0-32.0) mmol/L 26.4 Anion Gap (3-11) mmol/L 8.6 BUN (7-18) mg/dL 11 Creatinine (0.55-1.02) mg/dL 0.5 L Est GFR (CKD-EPI 2020) (mL/min/1.73m2) 120.77 Glucose (74-106) mg/dL 90 Calcium (8.5-10.1) mg/dL 8.6 Total Bilirubin (0.2-1.0) mg/dL 0.3 AST (15-37) U/L 8 L ALT (14-59) U/L 13 L Alkaline Phosphatase (46-116) U/L 44 L Total Protein (6.4-8.2) g/dL 6.6 Albumin (3.4-5.0) g/dL 3.6 Medical Decision Making ASSESSMENT AND PLAN Initial Assessment: 39-year-old female presenting with headache and neck pain. History of OCD, ADHD, anxiety, craniotomy, Chiari malformation status post decompression surgery and duraplasty in 09/2024. Reports daily flare-ups of pain, clear fluid leakage from eyes and back of throat. No meningismus. Afebrile. Differential Diagnosis: - Postsurgical complications: Concern for CSF leak. - Unlikely infectious etiology including meningitis or postoperative infection ED Course: - I consulted neurosurgery at [facility] [place], discussed ED presentation including complete and exam findings, requested transfer for imaging to be completed and for further evaluation. Neurosurgery recommends pain control here in the emergency department and discharge so that patient can have outpatient diagnostic imaging and follow-up appointment today. They know the patient well and do not feel that there is an emergent medical condition warranting more emergent evaluation. - Patient received Toradol, Valium and morphine IR. On reassessment pain was much improved. Plan was discussed with patient who is in agreement. Her father will be driving her to [facility] for appointment as scheduled. She was encouraged to return immediately should she have any worsening or new concerning symptoms or if she has difficulty maintaining outpatient plan as discussed. Clinical Impression: - Chiari I malformation - Postsurgical complications - Headache - Possible CSF leak Disposition: - Follow-Up: Patient to follow-up with neurosurgery today This document was written with the assistance of MAKI Atwood. The patient consented to its use. PFSH All Active Problems (Updated 02/10/25 @ 08:57 by Lars Louise MD) Neck pain (Acute) Headache (Acute) Pain in left foot (Acute) Chronic pain syndrome (Chronic) Autism spectrum disorder (Acute) Tremor (Acute) Temporomandibular joint disorder (Acute) Earache symptoms in both ears (Acute) Spinal stenosis excluding cervical region (Acute) Lumbar radiculopathy (Acute) Nausea (Acute) Bipolar 2 disorder (Acute) Borderline personality disorder (Acute) Chronic headache (Acute) Pain, joint, foot, right (Acute) Pain in right foot (Acute) Gout (Chronic) Hyperuricemia (Acute) Dyspareunia, female (Acute) Vaginal pain (Acute) Vulvar pain (Acute) Pelvic pain (Acute) Migraine headache without aura (Acute) Medical History (Updated 02/10/25 @ 08:57 by Lars Louise MD) OCD (obsessive compulsive disorder) Post traumatic stress disorder Drug-induced constipation Lumbago with sciatica Essential tremor Anxiety Dysmenorrhea Mild Tourette's syndrome COVID 09/20/22 Tourettes disease pt states it is mild Dysuria History of dysmenorrhea Left-sided back pain Anxiety state History of depression ADHD Surgical History (Updated 11/23/24 @ 12:38 by Kelsy Barker) Hx of craniotomy History of repair of dehiscence of vaginal cuff S/P laparoscopic assisted vaginal hysterectomy (LAVH) 03/26/2022 Hx of tubal ligation History of tonsillectomy Hx of section 2019, Arrest disorder [place], [place] History of laparoscopy 2012. For endometriosis. 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
== END 2025-02-10 09:08 | disposition home or self-care (01) ==
PROVIDERS: Emergency Provider Student in an Organized Health Care Education/Training Program; PCP Family Medicine
DX: M54.2 Cervicalgia (principal); R51.9 Headache, unspecified
CPT/HCPCS: 99284 ×2; 96374; 80053; 85025; J1885

== ENCOUNTER 2025-02-26 08:31 | Emergency (ER) | payer MEDICAID, SELFPAY ==
[2025-02-26 08:34] VITALS: BP 130/78; PULSE 95; RESP 16; TEMP 35.6; O2SAT 100
[2025-02-26 08:43] VITALS: BP 130/78; PULSE 95; RESP 16; TEMP 35.6; O2SAT 100
[2025-02-26 10:03] VITALS: BP 119/78; PULSE 83; RESP 16; O2SAT 100
--- NOTE | 2025-02-26 10:19 | W.ED.GENAD ---
Discharge Plan Disposition Patient Disposition: Home Condition: Stable Discharge Details Clinical Impression: Constipation Primary Care Provider: Edi Izaguirre ED Provider: Lars Louise Home Meds and New Rx's Prescriptions: New peg 3350-electrolytes [Golytely] 236-22.74-6.74 -5.86 gram recon soln 240 ml PO Q10M Qty: 4000 0RF Rx Instructions: until fecal effluent is clear Continued ibuprofen 600 mg tablet 600 mg PO Q6H PRN (Reason: pain) Qty: 45 2RF lamotrigine 100 mg tablet 250 mg PO DAILY ondansetron 4 mg tablet,disintegrating 4 mg PO Q8H PRNQty: 20 0RF Discontinued hydromorphone 2 mg tablet 2 mg PO Q6H PRN Patient Comments: TAKE 1 TABLET BY MOUTH EVERY 6 HOURS NEEDED Discharge Instructions Instructions: Constipation, Adult ED Additional Instructions: Use milk of molasses enema: Mix 1 cup black strep molasses with 1 cup whole milk, warm and mix in suace vickers until warm (not hot), place in rectum with enema bag. Use laxative as prescribed. Please follow-up with your primary care physician. Stop taking opioid. Return to the emergency department immediately for any worsening or new concerning symptoms. Referrals: Edi Izaguirre MD [Primary Care Provider, Medicine] Discharge Data Discharge Date/Time-TO BE ENTERED AT DEPARTURE: 02/26/25 10:21 HPI General Mode of arrival: ambulatory. Date/Time Provider Initiated Documentation: 02/26/25 09:02. Limitations to Documentation: no limitations. Information obtained by: patient. HPI Narrative: HISTORY OF PRESENT ILLNESS This is a 39-year-old female with a history of bipolar 2 disorder, borderline personality disorder, migraine headaches, obsessive-compulsive disorder (OCD), attention-deficit/hyperactivity disorder (ADHD), anxiety, and Chiari malformation status post surgery, presenting with constipation. The patient reports that she has not had a bowel movement in 8 days and has started vomiting, which she attributes to her pain medication. She was informed that the medication could cause constipation, so she discontinued its use yesterday. Despite this, she continues to experience vomiting and does not believe it is due to an infection. She describes feeling constipated and has tried various remedies including stool softeners, laxatives, enemas, and castor oil, but without success. She reports a lack of urge to defecate, abdominal distension, pain, and nausea. She has previously tried magnesium citrate. She is also questioning whether her current medication, hydromorphone, may be numbing her sensation to defecate. PAST SURGICAL HISTORY: Craniotomy Chiari malformation surgery Related Data Home Medications Medication Instructions Recorded Confirmed lamotrigine 100 mg tablet 250 mg PO DAILY 11/18/21 02/26/25 ibuprofen 600 mg tablet 600 mg PO Q6H PRN pain #45 tabs 10/08/22 02/26/25 ondansetron 4 mg disintegrating 4 mg PO Q8H PRN #20 tabs 09/19/24 02/26/25 tablet peg 3350-electrolytes 236 240 ml PO Q10M #4,000 mL 02/26/25 gram-22.74 gram-6.74 gram-5.86 gram solution (Golytely) Previous Rx's Medication Instructions Recorded ibuprofen 600 mg tablet 600 mg PO Q6H PRN pain #45 tabs 10/08/22 ondansetron 4 mg disintegrating 4 mg PO Q8H PRN #20 tabs 09/19/24 tablet peg 3350-electrolytes 236 240 ml PO Q10M #4,000 mL 02/26/25 gram-22.74 gram-6.74 gram-5.86 gram solution (Golytely) Allergies Allergy/AdvReac Type Severity Reaction Status Date / Time escitalopram (From Lexapro) AdvReac Dizziness, Verified 02/26/25 08:40 headache General Stated Complaint: Abd Prob ANGEL: 3 Review of Systems All systems reviewed & are unremarkable except as noted in HPI and below Exam Const General: cooperative and no acute distress HENOH Mouth: moist mucous membranes Eyes Conjunctivae: normal conjunctivae Sclera: normal sclerae Resp Auscultation: clear to auscultation bilaterally, no rales, no rhonchi and no wheezes Cardio Rate: regular rate and not tachycardic Rhythm: regular rhythm GI Palpation: soft, not firm, no guarding, no masses, not rigid and nontender Skin General skin exam: no rashes or lesions noted Neuro General: patient alert, patient awake and tone normal Psych Appearance: grossly normal Mental Status: mental status grossly normal Speech and Movement: speech and movement normal Course Vital Signs Vital signs: Vital Signs Temperature 35.6 C L 10/26/25 08:34 Pulse 95 H 02/26/25 08:34 Respiratory Rate 16 02/26/25 08:34 Blood Pressure 130/78 02/26/25 08:34 Pulse Oximetry 100 02/26/25 08:34 Temperature 35.6 C L 02/26/25 08:43 Temperature Source Tympanic 02/26/25 08:43 Pulse 83 02/26/25 10:03 Respiratory Rate 16 02/26/25 10:03 Blood Pressure 119/78 02/26/25 10:03 Blood Pressure Position Sitting 02/26/25 08:43 Pulse Oximetry 100 02/26/25 10:03 Oxygen Delivery Method Room Air 02/26/25 08:43 Oxygen Flow Rate 0 02/26/25 08:43 Pain Level 6 02/26/25 08:43 Medical Decision Making ASSESSMENT AND PLAN Initial Assessment: 39-year-old female with multiple medical problems including bipolar II disorder, borderline personality disorder, migraine headache, OCD, ADHD, anxiety, Chiari malformation status post surgery, history of craniotomy, and drug-induced constipation. Chief complaint of constipation, not having a bowel movement in 8 days, accompanied by vomiting, abdominal distension and nausea. Stopped taking opioids yesterday due to these symptoms. Differential Diagnosis: - Constipation, suspect opioid induced ED Course: - Abdominal exam benign - Plan: Magnesium citrate, GoLytely, enema using blackstrap molasses and whole milk. Continue abstaining from opioids. Outpatient follow-up with PCP. Usual and customary discharge instructions reviewed. Clinical Impression: - Constipation Disposition: - Discharge home with plan for follow-up pcp - Advised return for worsening or new concerning symptoms Patient Education: Options for constipation discussed including magnesium citrate, GoLytely, homemade enema using blackstrap molasses and whole milk. Advised to continue abstaining from opioids. CT scan considered if condition worsens or severe pain. This document was written with the assistance of MAKI Atwood. The patient consented to its use. PFSH All Active Problems (Updated 03/13/25 @ 00:04 by JOHN ROSARIO) Constipation (Acute) Pain in left foot (Acute) Chronic pain syndrome (Chronic) Autism spectrum disorder (Acute) Tremor (Acute) Temporomandibular joint disorder (Acute) Earache symptoms in both ears (Acute) Spinal stenosis excluding cervical region (Acute) Lumbar radiculopathy (Acute) Nausea (Acute) Bipolar 2 disorder (Acute) Borderline personality disorder (Acute) Chronic headache (Acute) Pain, joint, foot, right (Acute) Pain in right foot (Acute) Gout (Chronic) Hyperuricemia (Acute) Dyspareunia, female (Acute) Vaginal pain (Acute) Vulvar pain (Acute) Pelvic pain (Acute) Migraine headache without aura (Acute) Medical History (Updated 03/13/25 @ 00:04 by JOHN ROSARIO) OCD (obsessive compulsive disorder) Post traumatic stress disorder Drug-induced constipation Lumbago with sciatica Essential tremor Anxiety Dysmenorrhea Mild Tourette's syndrome COVID 09/20/22 Tourettes disease pt states it is mild Dysuria History of dysmenorrhea Left-sided back pain Anxiety state History of depression ADHD Surgical History (Updated 11/23/24 @ 12:38 by Kelsy Barker) Hx of craniotomy History of repair of dehiscence of vaginal cuff S/P laparoscopic assisted vaginal hysterectomy (LAVH) 03/26/2022 Hx of tubal ligation History of tonsillectomy Hx of section 2019, Arrest disorder [place], [place] History of laparoscopy 2012. For endometriosis. 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
== END 2025-02-26 10:21 | disposition home or self-care (01) ==
PROVIDERS: Emergency Provider Student in an Organized Health Care Education/Training Program; PCP Family Medicine
DX: K59.00 Constipation, unspecified (principal)
CPT/HCPCS: 99283 ×2